=== PATIENT | male | born 1945 | race Caucasian/White ===

== ENCOUNTER 2016-06-08 07:21 | Outpatient (CLI) | payer MEDICAID ==
[~2016-06-08] VITALS: Ht 167.6 cm; Wt 124.6 kg
[2016-06-08] VITALS (14 sets, daily range): BP systolic 127–179; BP diastolic 74–101; PULSE 60–81; RESP 12–18; TEMP 96.7–98.3; O2SAT 90–98; Ht 167.6 cm; Wt 124.6 kg
[~2016-06-08 07:21] MED LIST: CEFAZOLIN 1 GRAM INJECTION IV ONE; FURO80TA3 PO; LOSA1TAB96 PO; LOVA20TA71 PO; MAGN400T6 PO; METO25TA6 PO; NITR0.4T SL; NORMAL SALINE 1,000 ML IV SCH; POTA10TA93 PO; SERT25TA5 PO; VANCOMYCIN 1 G in NORMAL SALINE 250 ML IV ONE
--- NOTE | 2016-06-08 07:35 | NUR ---
ADMIT PT ADMITTED TO ROOM 130 AT THIS TIME VIA AMBULATORY STATUS. PT REPOSITIONED SELF IN BED. SIGNIFICANT OTHER PRESENT IN ROOM UPON ADMIT. PT ALERT AND ORIENTED. WILL CONTINUE TO MONITOR.
[2016-06-08 08:48] LABS: BASOPHILS % (AUTO) 0.3 % (0-2); EOSINOPHILS # (AUTO) 0.1 T/MM3 (0-0.5); EOSINOPHILS % (AUTO) 1.4 % (0-4); HCT - HEMATOCRIT 48.2 % (41-53); HGB - HEMOGLOBIN 15.4 GM/DL (13.5-17.5); IMMATURE GRANULOCYTE # (AUTO) 0.02 T/MM3 (0.00-0.03); IMMATURE GRANULOCYTE % (AUTO) 0.3 % (0.0-0.5); LYMPHOCYTES # (AUTO) 1.3 T/MM3 (1-4.8); LYMPHOCYTES % (AUTO) 16.4 % (23-45); MEAN CORPUSCULAR VOLUME 93.8 UM3 (80-100); MEAN PLATELET VOLUME 10.7 UM3 (9.4-12.4); MONOCYTES # (AUTO) 0.4 T/MM3 (0-0.8); MONOCYTES % (AUTO) 5.2 % (0-9.0); NEUTROPHILS #(AUTO)-ABSOLUTE 6.1 T/MM3 (1.8-7.7); NEUTROPHILS % (AUTO) 76.4 % (33-66); RED BLOOD COUNT 5.14 M/MM3 (4.50-5.90); WBC - WHITE BLOOD COUNT 7.9 T/MM3 (4.5-11.0)
[2016-06-08 08:59] LABS: ANION GAP 10 MEQ/L (5-15); BUN/CREATININE RATIO 15 RATIO (6-26); CALCIUM 9.4 MG/DL (8.4-10.2); CHLORIDE 103 MEQ/L (98-107); CO2 - CARBON DIOXIDE 30 MEQ/L (22-30); GLOMERULAR FILTRATION RATE 74; GLUCOSE 120 MG/DL (75-110); POTASSIUM 4.1 MEQ/L (3.6-5); SODIUM 143 MEQ/L (134-144)
[2016-06-08] MEDS ORDERED: WATER FOR INJECTION 20 ML ONE (09:11)
[2016-06-08] MEDS ORDERED: SALINE FLUSH 10ml SYRINGE ONE ×2 (09:11→09:57)
[2016-06-08] MEDS ORDERED: CEFAZOLIN 1 GRAM INJECTION ONE ×2 (09:11→09:56)
[2016-06-08] MEDS ORDERED: LIDOCAINE 1% (10mg/ml) 30ml SDV ONE (09:12)
[2016-06-08] MEDS ORDERED: BACITRACIN INJ. 50,000 UNITS VL ONE (09:12)
--- NOTE | 2016-06-08 09:45 | NUR ---
SMALL CRAFT OPERATOR PT TRANSPORTED TO [facility]RAFT [facility]PERATOR AT THIS TIME VIA CART AND ACCOMPANIED BY STAFF. PT VOIDED PRIOR TO TRANSFER. EX PRESENT UPON TRANSFER. VITAL SIGNS STABLE ON ROOM AIR. INFORMED CONSENT OBTAINED. WILL CONTINUE TO MONITOR.
[2016-06-08] MEDS ORDERED: FENTANYL 100mcg/2ml INJECTION ONE ×2 (09:56→10:30)
[2016-06-08] MEDS ORDERED: MIDAZOLAM 5mg/5ml INJECTION ONE (09:57)
--- NOTE | 2016-06-08 11:28 | NUR ---
KARLA CM ATTEMPTED TO VISIT PT. PT AT PROCEDURE. CM LEFT CONTACT INFORMATION AT BEDSIDE AND WROTE ON BOARD.
--- NOTE | 2016-06-08 11:30 | NUR ---
RETURN PT RETURNED TO ROOM 130 AT THIS TIME VIA CART. PT TRANSFERRED FROM CART TO BED BY SLIDE BOARD AND ASSIST X2. VITAL SIGNS STABLE. WILL CONTINUE TO MONITOR.
[2016-06-08] MEDS ORDERED: ACETAMINOPHEN 325 MG TABLET PO PRN (17:15)
[2016-06-08] MEDS ORDERED: NITROGLYCERIN 0.4 MG SUBLINGUAL TABLET SL PRN (17:15)
[2016-06-08] MEDS ORDERED: MAG-AL + SIM LIQUID 30 ML UDC PO PRN (17:15)
[2016-06-08] MEDS ORDERED: OXYCODONE/APAP 5mg/325mg TABLET PO PRN (17:15)
[2016-06-08] MEDS ORDERED: BISACODYL 5 MG E.C. TABLET PO PRN (17:15)
--- OUTSIDE RECORDS SUMMARY | 2016-06-08 17:23 | XMS REPORT | Continuity of Care Document ---
Author Author [facility] Organization [facility] Address Unknown Phone Unavailable Allergies Active Description Code Type Severity Reaction Onset Reported/Identified Relationship to Patient Clinical Status Yes morphine Drug Allergy Severe RESP ARREST/ CARDIAC ARREST 05/29/2008 Medications Problems Procedures Results Encounters ACCT No. Visit Date/Time Discharge Status Pt. Type Provider Facility Loc./Unit Complaint [id number] 06/27/2013 09:50:00 2013 23:59:59 [facility] Outpatient Zoey DIAZ, [email or web address] [id number] 07/17/2012 12:50:00 2012 23:59:59 [facility] Outpatient Jaylen DIAZ, Gonzalo Douglas [facility] HAYLEE
--- OUTSIDE RECORDS SUMMARY | 2016-06-08 17:23 | XMS REPORT | Continuity of Care Document ---
Author Author [facility] Organization [facility] Address Unknown Phone Unavailable Support Name Relationship Address Phone INGE HEDRICK MD Caregiver [facility] [address] [place] [address] PATRICK MEDINA MD Caregiver [address] [place] [address] [phone] TONY CHIU Next Of Kin [id number] [place], [place] [id number] Insurance Providers Payer Name Policy Number Subscriber Name Relationship Medicare [id number] Neville Cerda Sr 19 Self Advance Directives Directive Response Recorded Date/Time Ordered Resuscitation Status Full Code, unverified 12/25/13 8:05am Resuscitation Documents on File Yes 12/25/13 8:49am Chief Complaint and Reason for Visit Chief Complaint Chest Pain Reason for Visit Chest pressure Dyspnea [id number] Problems Medical Problems Problem Onset Date Status Musculoskeletal left leg pain Unknown Active Pulmonary edema Unknown Active Chest pain Unknown Active Diabetes Unknown Active Hypertension Unknown Active CAD (coronary artery disease) Unknown Active Hypercholesteremia Unknown Active Depression Unknown Active GERD (gastroesophageal reflux disease) Unknown Active Morbid obesity with BMI of 45.0-49.9, adult Unknown Active Chest pressure Unknown Active Dyspnea Unknown Active CHF exacerbation Unknown Active Medications Medication Dose Route Sig Days/Qty Instructions Order Date Discontinued Date Status Losartan/Hydrochlorothiazide 25 Mg PO DAILY 90 Qty 03/23/13 Active Lovastatin DAILY 90 Qty 03/23/13 Active Potassium Chloride 20 Meq THREE TIMES A DAY 360 Qty 03/23/13 Active Furosemide 40 Mg PO DAILY EVERY AFTERNOON 12/19/13 Active Sertraline HCl 25 Mg PO DAILY 12/19/13 Active Magnesium Oxide 400 Mg PO TWICE A DAY 60 Qty 12/21/13 Active Metoprolol Tartrate 25 Mg PO TWICE DAILY WITH MEALS 60 Qty 12/21/13 Active Nitroglycerin 0.4 Mg SL EVERY 5 MINUTES X 3 PRN CHEST PAIN 1 Qty Active Furosemide 1 Tab PO DAILY 12/25/13 Active Social History Social History Problem Response Recorded Date/Time Smoking Status Former smoker 12/25/2013 8:54am When did patient START smoking? TEENAGER 12/25/2013 8:54am When did patient STOP smoking? EARLY 80'S 12/25/2013 8:54am Chewing Tobacco Status No 12/25/2013 8:54am Hx Substance Use No 12/25/2013 8:54am Hx Alcohol Use No 12/25/2013 8:54am Has the pt used tobacco in the last 12 months No 12/25/2013 8:54am Query Response Start Date Stop Date Smoking Status Never smoker Hospital Discharge Instructions Instructions: Care Instructions: Reason for Hospitalization: chest pain I was in the hospital because (patient own words): irregular heartbeat Discharge Diet: low sodium Discharge Activity: as tolerated Follow Up Appointments: Next week with Dr Medina--his office will call for an appointment Patient Instructions: Should your symptoms return you could contact Dr Medina through the office or return to the ED for emergent evaluation Condition at time of discharge: Good Good see patient instructions Blood Clot prevention 1.Take your anticoagulant (Aspirin, Coumadin, Lovenox,etc) as directed Driving 1.May drive in 4 weeks if you had your LEFT extremity operated on. 2.May drive in 6 weeks if you had your RIGHT extremity operated on. Wound/Incision Care: Tegaderm 1.Clear dressing is to remain in place for 2 weeks. 2.Do not pick at it or scrub it while showering. 3.If the dressing begins to pull up, secure it with 4x4 gauze pad and tape. 4.You may shower; however, do not submerge yourself in water until the incision is completely healed. Mepilex 1.Dressing to remain in place until your follow up appointment. 2.If this dressing starts peeling up slightly, it may be reinforced, if it peels excessively, notify your surgeon's office. 3.You may shower with the dressing in place, but do not submerge in water 4.Do not allow water to seep under the dressing, if it should seep under, remove the dressing and notify your surgeon. Notify Physician If: Call your Surgeon if you have: 1.Chest pain, difficulty breathing, fever>100.5 degrees, chills, heart rate >100, confusion, or persistent nausea/vomitting. 2.Severe pain, swelling, redness, or warmth in either of your legs. 3.During office hours, call [phone] 4. After hours, please call [facility] at [phone], and have the chinchilla machine operator page your Surgeon IN THE EVENT OF AN EMERGENCY, seek medical care at the nearest Emergency Room Condition at time of discharge: Good Plan of Care Discharge Date 12/21/13 1:20pm Disposition 02 TO OBS [facility] Condition at Discharge Improved Instructions/Education Provided [facility] Congestive Heart Failure Prescriptions See Medications Section Referrals INGE HEDRICK MD Functional Status No functional status results. Allergies, Adverse Reactions, Alerts Allergen Type Severity Reaction Status Last Updated Morphine Allergy Severe heart stops Active 12/25/13 Aspirin Adverse Reaction Unknown nose bleed Active 12/25/13 Immunizations Name Given Type Hx Influenza Vaccination Y Oct Historical Hx Pneumococcal Vaccination Y 4 YEARS AGO, "I'M DUE FOR ONE NEXT YEAR" Historical Hx Influenza Vaccination Y Oct Historical Vital Signs Acute Vital Signs Vital Response Date/Time Temperature (Fahrenheit) 97.5 deg F (96.8 - 99.1) Temperature (Calculated Celsius) 36.20750 degrees C (36.0 - 37.3) Temperature Source Temporal Pulse Rate (adult) 68 bpm (60 - 100) Respiratory Rate 16 breaths/min (10 - 20) O2 Sat by Pulse Oximetry 100 % (90 - 100) Oxygen Delivery Method Room Air Blood Pressure 118/68 mm Hg Blood Pressure Source Automatic Cuff Height 5 ft 5 in Weight 281 lb Body Mass Index 46.0 kg/m^2 Results Test Source Date Result Interp. Ref. Range Comments Activated Partial Thromboplast Time December 19, 2013 5:24pm 29.1 SEC N 24-36 Alanine Aminotransferase (ALT/SGPT) December 19, 2013 5:24pm 41 U/L N 21- 72 Albumin December 19, 2013 5:24pm 4.0 G/DL N 3.5-5.0 Albumin/Globulin Ratio December 19, 2013 5:24pm 1.3 RATIO N 1.1-2.2 Alkaline Phosphatase December 19, 2013 5:24pm 84 U/L N 38-126 Anion Gap December 25, 2013 9:23am 12 MEQ/L N 5-15 COMMENT WILL CALL WHEN READY Aspartate Amino Transf (AST/SGOT) December 19, 2013 5:24pm 31 U/L N 17- 59 BUN/Creatinine Ratio December 25, 2013 9:23am 28 RATIO H 6-26 COMMENT WILL CALL WHEN READY Band Neutrophils # March 23, 2013 2:41pm 0.4 T/MM3 - Band Neutrophils % March 23, 2013 2:41pm 4.0 % N 0-6 Basophils # (Auto) December 25, 2013 9:23am 0.0 T/MM3 N 0-0.2 COMMENT WILL CALL WHEN READY Basophils # (Manual) March 23, 2013 2:41pm 0.0 T/MM3 N 0-0.2 Basophils % (Manual) March 23, 2013 2:41pm 0.0 % N 0-2 Basophils (%) (Auto) December 25, 2013 9:23am 0.2 % N 0-2 COMMENT WILL CALL WHEN READY Blood Urea Nitrogen December 25, 2013 9:23am 25.0 MG/DL H 9-20 COMMENT WILL CALL WHEN READY Calcium Level December 25, 2013 9:23am 9.0 MG/DL N 8.4-10.2 COMMENT WILL CALL WHEN READY Calculated Osmolality December 25, 2013 9:23am 274 MOSM/KG N 261-280 COMMENT WILL CALL WHEN READY Carbon Dioxide Level December 25, 2013 9:23am 27 MEQ/L N 22-30 COMMENT WILL CALL WHEN READY Chemistry Specimen Hemolysis December 25, 2013 9:23am < 15 0-25 0-25: No Hemolysis.26-70: Slight Hemolysis - can falsely elevate K and Urine Protein. 71-285: Moderate Hemolysis - can falsely elevate K, Troponin I, CA 19-9, PTH, CSF GLucose, and Urine Protein, and can falsely decrease Phenytoin. 286-999: Gross Hemolysis - can falsely elevate K, Troponin I, CA 19-9, PTH, CSF Glucose, and Urine Protine, and can falsely decrease Phenytoin. Recommend specimen recollection. Chloride Level December 25, 2013 9:23am 101 MEQ/L N 98-107 COMMENT WILL CALL WHEN READY Cholesterol Level December 21, 2013 5:49am 84 MG/DL L 132-199 Cholesterol/HDL Ratio December 21, 2013 5:49am 5.3 RATIO H 0-5.0 Creatinine December 25, 2013 9:23am 0.9 MG/DL N 0.8-1.5 COMMENT WILL CALL WHEN READY Eosinophils # (Auto) December 25, 2013 9:23am 0.1 T/MM3 N 0-0.5 COMMENT WILL CALL WHEN READY Eosinophils # (Manual) March 23, 2013 2:41pm 0.0 T/MM3 N 0-0.5 Eosinophils % (Manual) March 23, 2013 2:41pm 0.0 % N 0-4 Eosinophils (%) (Auto) December 25, 2013 9:23am 1.0 % N 0-4 COMMENT WILL CALL WHEN READY Globulin December 19, 2013 5:24pm 3.1 G/DL N 2.4-3.6 Glomerular Filtration Rate Calc December 25, 2013 9:23am 84 - COMMENT WILL CALL WHEN READY Glucometer December 20, 2013 10:57am 112 mg/dL H 75-110 Glucose Level December 25, 2013 9:23am 116 MG/DL H 75-110 COMMENT WILL CALL WHEN READY HDL Cholesterol Direct December 21, 2013 5:49am 16 MG/DL L 40-60 Hematocrit December 25, 2013 9:23am 42.1 % N 41-53 COMMENT WILL CALL WHEN READY Hemoglobin December 25, 2013 9:23am 13.4 GM/DL L 13.5-17.5 COMMENT WILL CALL WHEN READY Hemoglobin A1c December 20, 2013 5:20am 5.7 % L 6-7 <6.0 NON-DIABETIC RANGE6.0-7.0 ADA THERAPEUTIC RANGE >7.0 ACTION SUGGESTED Icterus Index December 25, 2013 9:23am < 2 0-7 COMMENT WILL CALL WHEN READY Immature Granulocyte # (Auto) December 25, 2013 9:23am 0.02 T/MM3 N 0.00- 0.03 COMMENT WILL CALL WHEN READY Immature Granulocyte % (Auto) December 25, 2013 9:23am 0.2 % N 0.0-0.5 COMMENT WILL CALL WHEN READY LDL Cholesterol, Calculated December 21, 2013 5:49am 40.8 L 66-159 Lymphocytes # (Auto) December 25, 2013 9:23am 1.1 T/MM3 N 1-4.8 COMMENT WILL CALL WHEN READY Lymphocytes # (Manual) March 23, 2013 2:41pm 0.4 T/MM3 L 1-4.8 Lymphocytes % (Manual) March 23, 2013 2:41pm 4.0 % L 23-45 Lymphocytes (%) (Auto) December 25, 2013 9:23am 9.9 % L 23-45 COMMENT WILL CALL WHEN READY Magnesium Level December 21, 2013 5:49am 2.0 MG/DL N 1.6-2.3 Mean Corpuscular Hemoglobin December 25, 2013 9:23am 29.6 UUG N 26-34 COMMENT WILL CALL WHEN READY Mean Corpuscular Hemoglobin Concent December 25, 2013 9:23am 31.8 GM/DL N 31-37 COMMENT WILL CALL WHEN READY Mean Corpuscular Volume December 25, 2013 9:23am 93.1 UM3 N 80-100 COMMENT WILL CALL WHEN READY Mean Platelet Volume December 25, 2013 9:23am 11.2 UM3 N 9.4-12.4 COMMENT WILL CALL WHEN READY Monocytes # (Auto) December 25, 2013 9:23am 0.6 T/MM3 N 0-0.8 COMMENT WILL CALL WHEN READY Monocytes # (Manual) March 23, 2013 2:41pm 0.2 T/MM3 N 0-0.8 Monocytes % (Manual) March 23, 2013 2:41pm 2.0 % N 0-9.0 Monocytes (%) (Auto) December 25, 2013 9:23am 5.3 % N 0-9.0 COMMENT WILL CALL WHEN READY BV-Mza-Q-Type Natriuretic Peptide December 19, 2013 5:24pm 3580 PG/ML H 0 -175 Rule in cut points: <50 years old=450; 50-75 years old=900; >75 years old=1800; When utilizing ProBNP rule-in cut points, adjustment for impaired renal function is typically not required. Neutrophils # (Auto) December 25, 2013 9:23am 9.2 T/MM3 H 1.8-7.7 COMMENT WILL CALL WHEN READY Neutrophils # (Manual) March 23, 2013 2:41pm 9.4 T/MM3 H 1.8-7.7 Neutrophils % (Manual) March 23, 2013 2:41pm 87.0 % H 33-66 Neutrophils (%) (Auto) December 25, 2013 9:23am 83.4 % H 33-66 COMMENT WILL CALL WHEN READY Platelet Count December 25, 2013 9:23am 175 T/MM3 N 130-400 COMMENT WILL CALL WHEN READY Potassium Level December 25, 2013 9:23am 3.7 MEQ/L N 3.6-5 COMMENT WILL CALL WHEN READY Prothromb Time International Ratio December 19, 2013 5:24pm 1.11 H 0.81- 1.09 THERAPUTIC RANGE=2.00-3.00 FOR ANTI-THROMBOSIS THERAPUTIC RANGE=2.50- 3.50 FOR IMPLANTED VALVE RDW Standard Deviation December 25, 2013 9:23am 51.5 FL H 36.9-50.2 COMMENT WILL CALL WHEN READY Reactive Lymphocytes # March 23, 2013 2:41pm 0.3 T/MM3 H 0-0 Reactive Lymphocytes % March 23, 2013 2:41pm 3.0 % H 0-0 Red Blood Count December 25, 2013 9:23am 4.52 M/MM3 N 4.50-5.90 COMMENT WILL CALL WHEN READY Sodium Level December 25, 2013 9:23am 140 MEQ/L N 134-144 COMMENT WILL CALL WHEN READY Total Bilirubin December 19, 2013 5:24pm 0.80 MG/DL N 0.20-1.30 Total Protein December 19, 2013 5:24pm 7.1 G/DL N 6.3-8.2 Triglycerides Level December 21, 2013 5:49am 136 MG/DL N 40-160 Troponin I December 20, 2013 5:09am 0.030 ng/ml N 0-0.12 Turbidity December 25, 2013 9:23am < 20 0-20 COMMENT WILL CALL WHEN READY Uric Acid March 23, 2013 2:41pm 6.7 MG/DL N 3.5-8.5 VLDL Cholesterol December 21, 2013 5:49am 27.2 MG/DL N 0-28 White Blood Count December 25, 2013 9:23am 11.1 T/MM3 H 4.5-11.0 COMMENT WILL CALL WHEN READY Name: NEVILLE CERDA SR Unit #: [id number] : 1945 Sex: M DISCHARGE SUMMARY Admit Date: 12/19/13 Report #: [id number] General Date Date DATE: 12/21/13 TIME: 12:18 Attending Physician Evelyn Schuster DO Admitting Physician Evelyn Schuster DO Consulting Physician Patrick Medina MD Admitting Diagnosis (1) Pulmonary edema Status: Acute (2) Chest pain Status: Acute (3) Hypertension Status: Chronic (4) CAD (coronary artery disease) Status: Chronic (5) Hypercholesteremia Status: Chronic (6) Diabetes Status: Chronic (7) Depression Status: Chronic (8) GERD (gastroesophageal reflux disease) Status: Chronic (9) Morbid obesity with BMI of 45.0-49.9, adult Discharge Diagnosis same adding CHF, acute on chronic systolic Laboratory Laboratory Laboratory Tests Test 12/21/13 05:49 Turbidity < 20 Sodium Level 141 MEQ/L Potassium Level 3.7 MEQ/L Chloride Level 97 MEQ/L Carbon Dioxide Level 35 MEQ/L Anion Gap 9 MEQ/L Blood Urea Nitrogen 22.0 MG/DL Creatinine 1.1 MG/DL Glomerular Filtration Rate 67 Calc BUN/Creatinine Ratio 20 RATIO Glucose Level 122 MG/DL Calculated Osmolality 275 MOSM/KG Calcium Level 9.3 MG/DL Magnesium Level 2.0 MG/DL Icterus Index < 2 Chemistry Specimen Hemolysis < 15 History of Present Illness Mr. Cerda, "Michel", is a very pleasant 68 year old male who was directed to the [facility] ED today by [facility] for chest pressure, shortness of breath and palpations. Michel reports that over the past 2 weeks he has become increasing more short of breath, especially with ambulation , exertion and laying flat. He states that about a week ago the political director took his blood pressure and told him that his heart was skipping beats. He admits to occasional bouts of palpations, most recently on 12/17. He reports that today the political director encouraged [facility] for further evaluation of his chest pressure and dyspnea. Due to the severity of his shortness of breath, he was directed to [facility] ED for further evaluation. In the ED he reported chest pressure that is very different than his prior NM in 2004 and states that it is similar to when he "had fluid on his lungs". In the ED he was given nitro x 2 which completely resolved his chest pain. Patient was offered and encouraged to take ASA 324 which he refused. He reports that when he has previously taken ASA he had an episode of severe epistaxis. He did finally accepted ASA 81mg. Lab work obtained and showed: WBC - 11.9, Hemoglobin - 13.9, Sodium - 140, Potassium - 3.7, BUn - 21, SCr - 1.0. Troponin - 0.037. BNP - 3580. EKG showed frequent PVCs. CXR was obtained and showed increased interstitial markings bilaterally consistent with early infiltrate vs. CHF exacerbation. Based on patient's dyspnea, pulmonary edema and chest pain, Dr. Schuster was contacted for outpatient admission for further evaluation and treatment. Patient's length of stay is expected to be less than 2 overnights. Hospital Course Pt was admitted to the outpt unit under the hospitalist service. He was started on O2, and IV Lasix was given. Troponins were followed and remained stable. DVT and GI protection was urtilized. Pain and nausea was controlled with PRN medications. Pt's telemetry was noted with ectopy, and Dr Medina was consulted. He did make some medication adjustments, and recommended a heart cath for further evaluation. Pt agreed to the procedure, but wanted to return at a different time later in the week for this. Pt was monitored overnight after his med changes for stability. He was able to walk and perform his ADLs without symptoms. He was discharged home with instructions to return to Dr Medina's clinic next week to have his heart cath set up. Should he have any return of symptoms of other concerns he could contact Dr Medina through the office or return to the ED for emergent evaluation. Problems: (1) Pulmonary edema Status: Acute (2) Chest pain Status: Acute (3) Hypertension Status: Chronic (4) CAD (coronary artery disease) Status: Chronic (5) Hypercholesteremia Status: Chronic (6) Diabetes Status: Chronic (7) Depression Status: Chronic (8) GERD (gastroesophageal reflux disease) Status: Chronic (9) Morbid obesity with BMI of 45.0-49.9, adult Status: Chronic DVT Prophylaxis: SCD'S GI Prophylaxis: Protonix Code Status Do Not Resuscitate Home Meds Active Scripts Nitroglycerin (Nitrostat)0.4 Mg Tablet0.4 Mg SL Q5MIN PRN (CHEST PAIN) #1 VIAL Prov:EVELYN SCHUSTER DO 12/21/13 Metoprolol Tartrate 25 Mg [id number] Mg PO BIDWM #60 TAB Prov:EVELYN SCHUSTER DO 12/21/13 Magnesium Oxide 400 Mg [id number] Mg PO BID #60 TAB Prov:EVELYN SCHUSTER DO 12/21/13 Reported Medications Sertraline HCl 25 Mg [id number] Mg PO DAILY 12/19/13 Furosemide 80 Mg [id number] Mg PO BID 12/19/13 Potassium Chloride 10 Meq Tablet.sa20 Mg BID #360 03/23/13 Lovastatin 20 Mg Tablet Daily #90 03/23/13 Losartan/Hydrochlorothiazide (Losartan-Hctz 100-25 Mg Tab)1 Each [id number] Mg PO DAILY #90 03/23/13 Discharge Disposition stable Copies To 1: JAYANT HART MD, CARRIE DO Dec 21, 2013 12:27 Procedures No known history of procedures. Encounters Encounter Location Date/Time Registered Clinic [facility] 12/25/13 8:09am Discharged Inpatient [facility] 12/19/13 7:24pm
--- OUTSIDE RECORDS SUMMARY | 2016-06-08 17:23 | XMS REPORT | Continuity of Care Document ---
Author Author [facility] Organization [facility] Address Unknown Phone Unavailable Support Name Relationship Address Phone LANDENGYPSY Caregiver [address] [place] [address] [address] DEL[address] [place] [address] INGE HEDRICK MD Caregiver [facility] [address] [place] [address] KANWAL CAMP MD Caregiver [address] [place] [address] [place] [phone] TONY CHIU Next Of Kin [address] [id number] Insurance Providers Payer Name Policy Number Subscriber Name Relationship Medicare [id number] Neville Cerda Sr 18 Self Advance Directives Directive Response Recorded Date/Time Dr Mclain Resuscitation Status Do Not Resuscitate 12/19/13 8:27pm Resuscitation Documents on File No 12/19/13 8:02pm Chief Complaint and Reason for Visit Chief Complaint CHF EXCERBATION, CP RULE OUT M1 Reason for Visit Pulmonary edema Chest pain Diabetes Hypertension CAD (coronary artery disease) Hypercholesteremia Depression GERD (gastroesophageal reflux disease) Morbid obesity with BMI of 45.0-49.9, adult Chest pressure Dyspnea CHF exacerbation Problems Medical Problems Problem Onset Date Status [...] 90 Qty 03/23/13 Active Potassium Chloride 20 Mg TWICE A DAY 360 Qty 03/23/13 Active Furosemide 40 Mg PO TWICE A DAY 12/19/13 Active Sertraline HCl 25 Mg PO DAILY 10/09/14 Active Magnesium Oxide 400 Mg PO TWICE A DAY 60 Qty 12/21/13 Active Metoprolol Tartrate 25 Mg PO TWICE DAILY WITH MEALS 60 Qty 12/21/13 Active Nitroglycerin 0.4 Mg SL EVERY 5 MINUTES X 3 PRN CHEST PAIN 1 Qty Active Social History Social History Problem Response Recorded Date/Time Smoking Status Former smoker 12/19/2013 8:05pm When did patient STOP smoking? YEARS AGO 12/19/2013 8:05pm Hx Alcohol Use No 03/23/2013 1:23pm Has the pt used tobacco in the last 12 months No 12/19/2013 8:05pm Query Response Start Date Stop Date Smoking [...] evaluation Condition at time of discharge: Good Condition at time of discharge: Good Plan of Care Discharge Date 12/21/13 1:20pm Disposition 01 DISCHARGED HOME, SELF-CARE Instructions/Education Provided [facility] Congestive Heart Failure Prescriptions See Medications Section Functional Status Query Response Date Recorded Mental Status Alert Oriented December 20, 2013 10:45am Allergies, Adverse Reactions, Alerts Allergen Type Severity Reaction Status Last Updated Morphine Allergy Severe heart stops Active 12/19/13 Aspirin Adverse Reaction Unknown nose bleed Active 12/19/13 Immunizations Name Given Type Hx Influenza Vaccination Y Oct Historical Hx Pneumococcal Vaccination Y 4 YEARS AGO, "I'M DUE FOR ONE NEXT YEAR" Historical Hx Influenza Vaccination Y Oct Historical Vital Signs Acute Vital Signs Vital Response Date/Time Temperature (Fahrenheit) 98.4 deg F (96.8 - 99.1) Temperature (Calculated Celsius) 36.63169 degrees C (36.0 - 37.3) Temperature Source Oral Pulse Rate (adult) 65 bpm (60 - 100) Respiratory Rate 16 breaths/min (10 - 20) O2 Sat by Pulse Oximetry 98 % (90 - 100) Oxygen Delivery Method Room Air Height 5 ft 5 in Weight 282 lb Body Mass Index 46.0 kg/m^2 Results Test Source Date Result Interp. Ref. Range Comments Cholesterol/HDL Ratio December 21, 2013 5:49am 5.3 RATIO H 0-5.0 VLDL Cholesterol December 21, 2013 5:49am 27.2 MG/DL N 0-28 LDL Cholesterol, Calculated December 21, 2013 5:49am 40.8 L 66-159 HDL Cholesterol Direct December 21, 2013 5:49am 16 MG/DL L 40-60 Triglycerides Level December 21, 2013 5:49am 136 MG/DL N 40-160 Cholesterol Level December 21, 2013 5:49am 84 MG/DL L 132-199 Activated Partial Thromboplast Time December 19, 2013 5:24pm 29.1 SEC N 24-36 Alanine Aminotransferase (ALT/SGPT) December 19, 2013 5:24pm 41 U/L N 21- 72 Albumin December 19, 2013 5:24pm 4.0 G/DL N 3.5-5.0 Albumin/Globulin Ratio December 19, 2013 5:24pm 1.3 RATIO N 1.1-2.2 Alkaline Phosphatase December 19, 2013 5:24pm 84 U/L N 38-126 Anion Gap December 21, 2013 5:49am 9 MEQ/L N 5-15 Aspartate Amino Transf (AST/SGOT) December 19, 2013 5:24pm 31 U/L N 17- 59 BUN/Creatinine Ratio December 21, 2013 5:49am 20 RATIO N 6-26 Band Neutrophils # March 23, 2013 2:41pm 0.4 T/MM3 - Band Neutrophils % March 23, 2013 2:41pm 4.0 % N 0-6 Basophils # (Auto) December 20, 2013 5:20am 0.0 T/MM3 N 0-0.2 Basophils # (Manual) March 23, 2013 2:41pm 0.0 T/MM3 N 0-0.2 Basophils % (Manual) March 23, 2013 2:41pm 0.0 % N 0-2 Basophils (%) (Auto) December 20, 2013 5:20am 0.2 % N 0-2 Blood Urea Nitrogen December 21, 2013 5:49am 22.0 MG/DL H 9-20 Calcium Level December 21, 2013 5:49am 9.3 MG/DL N 8.4-10.2 Calculated Osmolality December 21, 2013 5:49am 275 MOSM/KG N 261-280 Carbon Dioxide Level December 21, 2013 5:49am 35 MEQ/L H 22-30 Chemistry Specimen Hemolysis December 21, 2013 5:49am < 15 0-25 0-25: No Hemolysis.26-70: Slight [...] Phenytoin. Recommend specimen recollection. Chloride Level December 21, 2013 5:49am 97 MEQ/L L 98-107 Creatinine December 21, 2013 5:49am 1.1 MG/DL N 0.8-1.5 Eosinophils # (Auto) December 20, 2013 5:20am 0.1 T/MM3 N 0-0.5 Eosinophils # (Manual) March 23, 2013 2:41pm 0.0 T/MM3 N 0-0.5 Eosinophils % (Manual) March 23, 2013 2:41pm 0.0 % N 0-4 Eosinophils (%) (Auto) December 20, 2013 5:20am 1.4 % N 0-4 Globulin December 19, 2013 5:24pm 3.1 G/DL N 2.4-3.6 Glomerular Filtration Rate Calc December 21, 2013 5:49am 67 - Glucometer December 20, 2013 10:57am 112 mg/dL H 75-110 Glucose Level December 21, 2013 5:49am 122 MG/DL H 75-110 Hematocrit December 20, 2013 5:20am 42.7 % N 41-53 Hemoglobin December 20, 2013 5:20am 13.6 GM/DL N 13.5-17.5 Hemoglobin A1c December 20, 2013 5:20am 5.7 % L 6-7 <6.0 NON-DIABETIC RANGE6.0-7.0 ADA THERAPEUTIC RANGE >7.0 ACTION SUGGESTED Icterus Index December 21, 2013 5:49am < 2 0-7 Immature Granulocyte # (Auto) December 20, 2013 5:20am 0.01 T/MM3 N 0.00- 0.03 Immature Granulocyte % (Auto) December 20, 2013 5:20am 0.1 % N 0.0-0.5 Lymphocytes # (Auto) December 20, 2013 5:20am 1.4 T/MM3 N 1-4.8 Lymphocytes # (Manual) March 23, 2013 2:41pm 0.4 T/MM3 L 1-4.8 Lymphocytes % (Manual) March 23, 2013 2:41pm 4.0 % L 23-45 Lymphocytes (%) (Auto) December 20, 2013 5:20am 14.6 % L 23-45 Magnesium Level December 21, 2013 5:49am 2.0 MG/DL N 1.6-2.3 Mean Corpuscular Hemoglobin December 20, 2013 5:20am 29.5 UUG N 26-34 Mean Corpuscular Hemoglobin Concent December 20, 2013 5:20am 31.9 GM/DL N 31-37 Mean Corpuscular Volume December 20, 2013 5:20am 92.6 UM3 N 80-100 Mean Platelet Volume December 20, 2013 5:20am 11.4 UM3 N 9.4-12.4 Monocytes # (Auto) December 20, 2013 5:20am 0.6 T/MM3 N 0-0.8 Monocytes # (Manual) March 23, 2013 2:41pm 0.2 T/MM3 N 0-0.8 Monocytes % (Manual) March 23, 2013 2:41pm 2.0 % N 0-9.0 Monocytes (%) (Auto) December 20, 2013 5:20am 5.7 % N 0-9.0 AA-Yhq-D-Type Natriuretic Peptide December 19, 2013 5:24pm 3580 PG/ML H 0 -175 Rule in cut points: <50 years old=450; 50-75 years old=900; >75 years old=1800; When utilizing ProBNP rule-in cut points, adjustment for impaired renal function is typically not required. Neutrophils # (Auto) December 20, 2013 5:20am 7.7 T/MM3 N 1.8-7.7 Neutrophils # (Manual) March 23, 2013 2:41pm 9.4 T/MM3 H 1.8-7.7 Neutrophils % (Manual) March 23, 2013 2:41pm 87.0 % H 33-66 Neutrophils (%) (Auto) December 20, 2013 5:20am 78.0 % H 33-66 Platelet Count December 20, 2013 5:20am 182 T/MM3 N 130-400 Potassium Level December 21, 2013 5:49am 3.7 MEQ/L N 3.6-5 Prothromb Time International Ratio December 19, 2013 5:24pm 1.11 H 0.81- 1.09 THERAPUTIC RANGE=2.00-3.00 FOR ANTI-THROMBOSIS THERAPUTIC RANGE=2.50- 3.50 FOR IMPLANTED VALVE RDW Standard Deviation December 20, 2013 5:20am 51.4 FL H 36.9-50.2 Reactive Lymphocytes # March 23, 2013 2:41pm 0.3 T/MM3 H 0-0 Reactive Lymphocytes % March 23, 2013 2:41pm 3.0 % H 0-0 Red Blood Count December 20, 2013 5:20am 4.61 M/MM3 N 4.50-5.90 Sodium Level December 21, 2013 5:49am 141 MEQ/L N 134-144 Total Bilirubin December 19, 2013 5:24pm 0.80 MG/DL N 0.20-1.30 Total Protein December 19, 2013 5:24pm 7.1 G/DL N 6.3-8.2 Troponin I December 20, 2013 5:09am 0.030 ng/ml N 0-0.12 Turbidity December 21, 2013 5:49am < 20 0-20 Uric Acid March 23, 2013 2:41pm 6.7 MG/DL N 3.5-8.5 White Blood Count December 20, 2013 5:20am 9.8 T/MM3 N 4.5-11.0 Name: NEVILLE CERDA SR Unit #: [id number] : 1945 Sex: M DISCHARGE SUMMARY Admit Date: 12/19/13 Report #: [id number] General Date Date DATE: 12/21/13 TIME: 12:18 Attending Physician Gypsy Schuster DO Admitting Physician Gypsy Schuster DO Consulting Physician Luis Daniel Medina MD Admitting Diagnosis (1) Pulmonary edema [...] old male who was directed to the [facility] ED today by [facility] for chest pressure, shortness of breath and palpations. Michel reports that over the past 2 weeks he has become increasing more short of breath, especially with ambulation , exertion and laying flat. He states that about a week ago the director life sales took his blood pressure and told him that his heart was skipping beats. He admits to occasional bouts of palpations, most recently on 12/17. He reports that today the director life sales encouraged [facility] to [facility] to [facility] for further evaluation of his chest pressure and dyspnea. Due to the severity of his shortness of breath, he was directed to [facility] ED for further evaluation. In the ED he reported chest pressure that is very different than his prior [place] in 2004 and states that it is [...] SL Q5MIN PRN (CHEST PAIN) #1 VIAL Prov:GYPSY SCHUSTER DO 12/21/13 Metoprolol Tartrate 25 Mg [id number] Mg PO BIDWM #60 TAB Prov:GYPSY SCHUSTER DO 12/21/13 Magnesium Oxide 400 Mg Vucxyo768 Mg PO BID #60 TAB Prov:GYPSY SCHUSTER DO 12/21/13 Reported Medications Sertraline HCl 25 Mg Lpvfwz72 Mg PO DAILY 12/19/13 Furosemide 80 Mg Dwhjfk94 Mg PO BID 12/19/13 Potassium Chloride 10 Meq Tablet.sa20 Mg BID #360 03/23/13 Lovastatin 20 Mg Tablet Daily #90 03/23/13 Losartan/Hydrochlorothiazide (Losartan-Hctz 100-25 Mg Tab)1 Each Cgkcxe58 Mg PO DAILY #90 03/23/13 Discharge Disposition stable Copies To 1: JAYANT HART MD, CARRIE DO Dec 21, 2013 12:27 Procedures No known history of procedures. Encounters Encounter Location Date/Time Discharged Inpatient [facility] 12/19/13 7:24pm Recent Diagnosis Pulmonary edema Chest pain Diabetes Hypertension CAD (coronary artery disease) Hypercholesteremia Depression GERD (gastroesophageal reflux disease) Morbid obesity with BMI of 45.0-49.9, adult Chest pressure Dyspnea CHF exacerbation
--- OUTSIDE RECORDS SUMMARY | 2016-06-08 17:23 | XMS REPORT ---
Author Author Galen Perez Organization [employer] Address Unknown Phone Unavailable Care Team Providers Care Wheat Combine Driver Name Role Phone Galen Perez CP Unavailable Allergies No Known Allergies Problems Problem Type Condition ICD-9 Code Onset Dates Condition Status Problem Unspecified venous (peripheral) insufficiency 459.81 Active Problem Hypercholesterolemia 272.2 Active Problem Depressive disorder, not elsewhere classified 311 Active Problem Chronic systolic heart failure 428.22 Active Problem Coronary atherosclerosis of [place] coronary artery 414.01 Active Problem Old myocardial infarction 412 Active Problem Hypertension, benign 401.1 Active Problem Morbid obesity 278.01 Active Medications Medication Code System Code Instructions Start Date End Date Status Dosage Sertraline HCl [facility] [address]-41 25 MG Orally Once a day 1 tablet Results No Known Results Summary Purpose [employer] Submission
--- OUTSIDE RECORDS SUMMARY | 2016-06-08 17:23 | XMS REPORT ---
Author Author Julia Moore [employer] Address Unknown Phone Unavailable Care Team Providers Care Police Magistrate Name Role Phone Julia Moore CP Unavailable Allergies, Adverse Reactions, Alerts Substance Reaction Event Type Morphine Sulfate anaphylaxis Drug Allergy Problems Problem Type Condition ICD-9 Code Onset Dates Condition Status Assessment Morbid obesity 278.01 Active Problem Unspecified venous (peripheral) insufficiency 459.81 Active Assessment Chronic systolic heart failure 428.22 Active Problem Hypercholesterolemia 272.2 Active Problem Depressive disorder, not elsewhere classified 311 Active Problem Chronic systolic heart failure 428.22 Active Problem Coronary atherosclerosis of [place] coronary artery 414.01 Active Problem Old myocardial infarction 412 Active Problem Hypertension, benign 401.1 Active Problem Morbid obesity 278.01 Active Assessment Need for prophylactic vaccination against streptococcus pneumoniae (pneumococcus) V03.82 Active Assessment Coronary atherosclerosis of [place] coronary artery 414.01 Active Assessment Hypertension, benign 401.1 Active Medications Medication Code System Code Instructions Start Date End Date Status Dosage Metoprolol Tartrate [facility] [address]-60 25 MG Orally Twice a day Active 1 tablet Magnesium Oxide [facility] [address]-74 400 MG Orally Active as directed Lovastatin [facility] [address]-09 20 MG Orally Once a day Active 1 tablet with a meal Sertraline HCl [facility] [address]-32 25 MG Orally Once a day Active 1 tablet Nitrostat [facility] [address]-19 0.4 MG Sublingual every 0 hrs Active 1 tablet under the tongue and allow to dissolve as needed Losartan Potassium-HCTZ [facility] [address]-65 100-25 MG Orally Once a day Active 1 tablet Furosemide [facility] [address]-24 80 MG Orally twice a day Active 1 tablet Potassium Chloride ER [facility] [address]-56 10 MEQ Orally Four times a day Active 1 tablet Procedures Procedure Coding System Code Date BASIC METABOLIC PANEL CPT-4 77108 Dec 30, 2013 PNEUMOCOCOCCAL CONJUGATE VACCINE CPT-4 44668 Dec 30, 2013 OFFICE VISIT, EST-MOD. COMPLEXITY (25 MIN) CPT-4 32568 Dec 30, 2013 ADMINISTRATION, 1ST IMMUNIZATION CPT-4 23141 Dec 30, 2013 Vital Signs Date/Time: Dec 30, 2013 Height 65.25 inches Weight 284.8 lbs Temperature 97.8 F Blood Pressure Diastolic 74 mm Hg Blood Pressure Systolic 124 mm Hg Cardiac Monitoring Heart Rate 80 Beats per Minute BMI 47.03 Index Respiratory Rate 18 per Minute Results Name Result Date Reference Range Unit Basic Metabolic Panel (BMP) Immunizations Vaccine Administration Date Pneumo 13 (Prevnar)(child)(adult) Dec 30, 2013 Summary Purpose [employer] Submission
--- OUTSIDE RECORDS SUMMARY | 2016-06-08 17:23 | XMS REPORT ---
Author Author Julia Moore Organization [employer] Address Unknown Phone Unavailable Care Team Providers Care Rubber Goods Repairer Name Role Phone Julia Moore CP Unavailable Allergies, Adverse Reactions, Alerts Substance Reaction Event Type Morphine Sulfate anaphylaxis Drug Allergy Problems Problem Type Condition ICD-9 Code Onset Dates Condition Status Assessment Other dyspnea and respiratory abnormalities 786.09 Active Problem Depressive disorder, not elsewhere classified 311 Active Problem Hypertension, benign 401.1 Active Problem Hypercholesterolemia 272.2 Active Problem Old myocardial infarction 412 Active Problem Unspecified venous (peripheral) insufficiency 459.81 Active Problem Morbid obesity 278.01 Active Problem Coronary atherosclerosis of [place] coronary artery 414.01 Active Medications Medication Code System Code Instructions Start Date End Date Status Dosage Sertraline HCl [facility] [address]-26 25 MG Orally Once a day Active 1 tablet Losartan Potassium [facility] [address]-50 25 MG Orally Once a day Active 1 tablet Potassium Chloride ER [facility] [address]-21 10 MEQ Orally Four times a day Active 1 tablet Furosemide [facility] [address]-61 40 MG Orally Twice a day Active 1 tablet Lovastatin [facility] [address]-10 20 MG Orally Once a day Active 1 tablet with a meal Procedures Procedure Coding System Code Date OFFICE VISIT, GLAZE MAKER-LOW COMPLEXITY (30 MIN.) CPT-4 22378 Dec 19, 2013 Vital Signs Date/Time: Dec 19, 2013 Height 65.25 inches Weight 279.12 lbs Temperature 98.4 F Blood Pressure Diastolic 86 mm Hg Blood Pressure Systolic 130 mm Hg Cardiac Monitoring Heart Rate 88 Beats per Minute BMI 46.09 Index Respiratory Rate 20 per Minute Results No Known Results Summary Purpose [employer] Submission
[2016-06-08] MEDS ORDERED: NS 500 ML IV PRN (17:45)
[2016-06-08] MEDS: POTASSIUM CHLORIDE 10 MEQ TABLET PO SCH (17:54)
[2016-06-08] MEDS: CEFAZOLIN 1 G in NORMAL SALINE 100 ML IV SCH (17:54)
--- NOTE | 2016-06-08 18:26 | NUR ---
DM Screen BMI: 45.1 Estimated daily calorie needs for weight maintenance: ~2600 Weight loss would be beneficial for patient. Diet order: Cardiac, [address] spoke with patient and his . Patient said he is pre-diabetic and sees a dietitian with Kathy. RD stressed the importance of avoiding liquid sugar. RD encouraged them to ask RN to call RD if they have nutrition concerns.
[2016-06-08] MEDS: MAGNESIUM OXIDE 400 MG TABLET PO SCH (21:20)
[2016-06-09 00:23] VITALS: BP 141/86; PULSE 69; RESP 16; TEMP 96.8; O2SAT 93
[2016-06-09] MEDS: CEFAZOLIN 1 G in NORMAL SALINE 100 ML IV SCH (02:42)
[2016-06-09 04:11] VITALS: BP 135/99; PULSE 65; RESP 16; TEMP 96.9; O2SAT 93
--- NOTE | 2016-06-09 06:19 | NUR ---
SHIFT SUMMARY PT ALERT AND ORIENTED X3, VITAL SIGNS STABLE ON ROOM AIR. DENIES C/P,N/V AND SOA. PT RATED PAIN EARLIER IN THE SHIFT A /, PRN PAIN MEDICATION GIVEN. DENIES FURTHER NEED FOR PRN MEDICATION. PT SAT UP IN RECLINER FOR A FEW HOURS ON THIS SHIFT, RESTED WELL THE REMAINDER OF THE EVENING IN BED. AMBULATES TO AND FROM THE BATHROOM WITH A STANDBY ASSIST. WILL CONTINUE TO MONITOR.
[2016-06-09 06:27] LABS: BASOPHILS % (AUTO) 0.1 % (0-2); EOSINOPHILS # (AUTO) 0.1 T/MM3 (0-0.5); EOSINOPHILS % (AUTO) 1.4 % (0-4); HCT - HEMATOCRIT 46.9 % (41-53); HGB - HEMOGLOBIN 14.7 GM/DL (13.5-17.5); IMMATURE GRANULOCYTE # (AUTO) 0.02 T/MM3 (0.00-0.03); IMMATURE GRANULOCYTE % (AUTO) 0.2 % (0.0-0.5); LYMPHOCYTES # (AUTO) 1.3 T/MM3 (1-4.8); LYMPHOCYTES % (AUTO) 15.2 % (23-45); MEAN CORPUSCULAR HGB 29.7 UUG (26-34); MEAN CORPUSCULAR HGB CONC(MCHC 31.3 GM/DL (31-37); MEAN CORPUSCULAR VOLUME 94.7 UM3 (80-100); MEAN PLATELET VOLUME 10.5 UM3 (9.4-12.4); MONOCYTES # (AUTO) 0.6 T/MM3 (0-0.8); MONOCYTES % (AUTO) 6.7 % (0-9.0); NEUTROPHILS #(AUTO)-ABSOLUTE 6.4 T/MM3 (1.8-7.7); NEUTROPHILS % (AUTO) 76.4 % (33-66); RED BLOOD COUNT 4.95 M/MM3 (4.50-5.90); WBC - WHITE BLOOD COUNT 8.4 T/MM3 (4.5-11.0)
[2016-06-09 06:32] LABS: ANION GAP 9 MEQ/L (5-15); BUN/CREATININE RATIO 21 RATIO (6-26); CALCIUM 9.1 MG/DL (8.4-10.2); CHLORIDE 102 MEQ/L (98-107); CO2 - CARBON DIOXIDE 32 MEQ/L (22-30); CREATININE 0.8 MG/DL (0.8-1.5); GLOMERULAR FILTRATION RATE 96; GLUCOSE 109 MG/DL (75-110); POTASSIUM 4.2 MEQ/L (3.6-5); SODIUM 143 MEQ/L (134-144)
[2016-06-09 08:03] VITALS: BP 142/96; PULSE 74; RESP 20; TEMP 97.7; O2SAT 95
[2016-06-09 08:04] VITALS: PULSE 74; RESP 20
--- NOTE | 2016-06-09 08:27 | DI ---
Indication: ITS.REASON: post ppm PROCEDURE: CHEST 1 VIEW: Encounter: Initial Comparison: May 26, 2015 Findings: New left-sided dual-lead cardiac pacemaker with right atrial and right ventricular leads. No definite lead fracture or discontinuity. Overlying monitoring leads. No visible pneumothorax. Cardiomediastinal contours are stable. Impression: New left cardiac pacemaker without evidence of immediate complication. .
[2016-06-09] MEDS: POTASSIUM CHLORIDE 10 MEQ TABLET PO SCH ×3 (08:37→17:30)
[2016-06-09] MEDS: MAGNESIUM OXIDE 400 MG TABLET PO SCH (08:37)
[2016-06-09] MEDS ORDERED: LOSARTAN/HCTZ 100/25 TABLET PO SCH (09:00)
[2016-06-09] MEDS ORDERED: FUROSEMIDE 80 MG TABLET PO SCH (09:00)
[2016-06-09] MEDS ORDERED: SERTRALINE 25 MG TABLET PO SCH (09:00)
--- NOTE | 2016-06-09 09:06 | DI ---
INDICATION: ITS.REASON: post ppm PROCEDURE: CHEST 2-VIEWS UPRIGHT (PA \T\ LAT) Encounter: Initial COMPARISON: June 08, 2016 FINDINGS: Left-sided dual-lead cardiac pacemaker is stable in configuration. No visible left pneumothorax. Cardiomediastinal contours and lung squires are stable. Impression: Stable appearance of the left cardiac pacemaker. .
--- NOTE | 2016-06-09 10:24 | NUR ---
CM CM IN TO VISIT WITH PT. HE IS ALERT AND ORIENTED. HE STATES THAT HE PLANS TO DC HOME. HE DENIES NEED FOR HHS. HE REPORTS THAT IF HE NEEDS ADDITIONAL SERVICES HE IS ABLE TO GET THEM THROUGH [facility]. HE REPORT THAT HE CURRENTLY DOES NOT USE ANY HHS FROM [facility]. LACE SCORE IS 3. NO FURTHER INTERVENTION NEEDED. PT IS GIVEN UPDATED CM CONTACT INFORMATION. Addendum: 06/09/16 at 1025 by MARILEE SEYMOUR RN Amended: Links added.
[2016-06-09] MEDS: FUROSEMIDE 80 MG TABLET PO SCH ×2 (12:14→13:46)
[2016-06-09 12:29] VITALS: BP 174/97; PULSE 77; RESP 20; TEMP 96.2; O2SAT 94
[2016-06-09 16:52] VITALS: BP 173/98; PULSE 71; RESP 16; TEMP 98.4; O2SAT 94
[2016-06-09] MEDS ORDERED: MINO100C43 PO (17:47)
[2016-06-09] MEDS ORDERED: OXYC1TAB8 PO (17:47)
[2016-06-09] MEDS ORDERED: MINOCYCLINE 100 MG CAPSULE PO SCH (18:00)
--- NOTE | 2016-06-09 18:10 | NUR ---
DISCHARGE PT DISCHARGED TO [facility] AT THIS TIME VIA [facility] TRANSPORT STAFF. PT TRANSPORTED BY WHEELCHAIR TO THE FRONT ENTRANCE WITH THE SUPERVISION OF STAFF. DISCHARGE INSTRUCTIONS INCLUDING DIET, ACTIVITY, MEDICATIONS, FOLLOW UP APPOINTMENT, RESTRICTIONS AND [facility] PACEMAKER INSTRUCTIONS GIVEN AND REVIEWED WITH PATIENT. SCRIPTS FOR PERCOCET AND MINOCYCLINE PROCESSED THROUGH THE [facility] THAT IS PT'S ONLY METHOD FOR OBTAINING PRESCRIPTIONS. PT VERBALIZED UNDERSTANDING OF THESE INSTRUCTIONS AND HAD NO FURTHER QUESTIONS. IVL DISCONTINUED. ARMBAND REMOVED. SLING REMAINS TO LEFT UPPER EXTREMITY.
--- NOTE | 2016-06-09 18:40 | PNPDOC ---
Subjective Date DATE: 06/09/16 TIME: 18:23 Subjective doing well . no cp or dsypnea. no pain. keeping food down. up to chair. Objective Vital Signs Vital signs Vital Signs 06/09/16 06/09/16 06/09/16 06/09/16 08:03 08:04 12:29 16:52 Temp 97.7 96.2 98.4 Pulse 74 74 77 71 Resp 20 20 20 16 B/P 142/96 174/97 173/98 Pulse Ox 95 94 94 O2 Delivery Room Air Room Air Room Air Telemetry Rhythm: Sinus Rhythm Height (Feet): 5 Height (Inches): 6.00 Weight (Kilograms): 124.600 General Alert, Obese, Orientated x 3 Eyes (Brief) EOMI, PERRL, NOT FOUND: trauma ENMT (Brief) mucosa moist Neck (Brief) NOT FOUND: JVD Respiratory (Brief) clear all squires, equal bilaterally Cardiovascular (Brief) regular rhythm Capillary Refill: <2 sec Abdomen (Brief) BS normo active x4, soft, NOT FOUND: distended, tender Lymphatic (Brief) lymphedema Musculoskeletal (Brief) NOT FOUND: deformity Integumentary (Brief) dry, pink, warm Neurologic (Brief) FOUND: cranial 2-12 intact, motor, NOT FOUND: facial droop, ptosis Psychiatric (Brief) alert, attentive, normal affect, oriented Laboratory Laboratory Laboratory Tests 06/09/16 05:55 Laboratory Tests 06/09/16 05:55 Assessment & Plan Plan/Intensity of Service s/p PPM insertion doing well. ready for d/c PATRICK GALLEGOS MD Jun 09, 2016 18:29
[2016-06-09] MEDS ORDERED: OXYCODONE/APAP 5/325 (Prepack) SENT HOME ONE (18:45)
[2016-06-09] MEDS ORDERED: LOVASTATIN 20 MG TABLET PO SCH (22:00)
[2016-06-10] MEDS ORDERED: NITR0.4T SL (12:25)
[2016-06-10] MEDS ORDERED: MAGN400T6 PO (12:25)
== END 2016-06-09 18:10 | disposition home or self-care (01) ==
LOC: CATH 07:21 → SRG 07:21 → EEVIPCON 07:21 → UNDOADMOB 17:12 → CATH 17:12 → SRG 17:12 → UNDODISOB 06-09 18:10 → CATH 06-09 18:10
PROVIDERS: ATTEND Internal Medicine Cardiovascular Disease
DX: I49.5 Sick sinus syndrome (principal); R55 Syncope and collapse; I50.30 Unspecified diastolic (congestive) heart failure; I87.2 Venous insufficiency (chronic) (peripheral); I25.10 Atherosclerotic heart disease of native coronary artery without angina pectoris; E11.9 Type 2 diabetes mellitus without complications; E78.00 Pure hypercholesterolemia, unspecified; I10 Essential (primary) hypertension; F32.9 Major depressive disorder, single episode, unspecified; I25.2 Old myocardial infarction; Z79.899 Other long term (current) drug therapy; Z79.1 Long term (current) use of non-steroidal anti-inflammatories (NSAID)
CPT/HCPCS: 33208; 36415; 71010; 71020; 80048; 85025; 93005; C1785; C1898; G0378; J0690; J2250; J3010; J3490; J7030; J7050; Q9967; 96360; 96361; 99218

== ENCOUNTER 2016-06-10 11:43 | Inpatient (IN) | payer MEDICAID ==
[~2016-06-10] VITALS: Ht 167.6 cm; Wt 123.1 kg
[~2016-06-10 11:43] MED LIST changes: -CEFAZOLIN 1 GRAM INJECTION IV ONE; -METO25TA6 PO; +MINO100C43 PO; -NORMAL SALINE 1,000 ML IV SCH; +OXYC1TAB8 PO; -VANCOMYCIN 1 G in NORMAL SALINE 250 ML IV ONE
--- OUTSIDE RECORDS SUMMARY | 2016-06-10 11:50 | XMS REPORT | Continuity of Care Document ---
Author Author [facility] Organization [facility] Address Unknown Phone Unavailable Support Name Relationship Address Phone LANDENGYPSY Caregiver [address] [place] [address] [address] [place] [address] INGE HEDRICK MD Caregiver [facility] [address] [place] [address] KANWAL CAMP MD Caregiver [address] [place] [address] [place] [phone] TONY CHIU Next Of Kin [address] [id number] Insurance Providers Payer Name Policy Number Subscriber Name Relationship Medicare [id number] Neville Cerda Sr 19 Self Advance Directives [...] Disposition 01 DISCHARGED HOME, SELF-CARE Instructions/Education Provided [facility] Congestive Heart Failure Prescriptions See Medications Section [...] F (96.8 - 99.1) Temperature (Calculated Celsius) 36.30928 degrees C (36.0 - 37.3) Temperature Source [...] 20, 2013 5:20am 5.7 % N 0-9.0 IN-Yib-J-Type Natriuretic Peptide December 19, 2013 5:24pm 3580 [...] 4.5-11.0 Name: NEVILLE CERDA SR Unit #: [id number] : 1945 Sex: M DISCHARGE SUMMARY Admit Date: 12/19/13 Report #: [id number] General Date Date DATE: 12/21/13 TIME: 12:18 [...] old male who was directed to the [facility] ED today by [facility] for chest pressure, shortness of breath and palpations. Michel reports that over the past 2 weeks he has become increasing more short of breath, especially with ambulation , exertion and laying flat. He states that about a week ago the parks recreation director took his blood pressure and told him that his heart was skipping beats. He admits to occasional bouts of palpations, most recently on 12/17. He reports that today the parks recreation director encouraged [facility] to [facility] for further evaluation of his chest pressure and dyspnea. Due to the severity of his shortness of breath, he was directed to [facility] ED for further evaluation. In the ED he reported chest pressure that is very different than his prior [place] in 2004 and states that it is [...] SCHUSTER DO 12/21/13 Metoprolol Tartrate 25 Mg Frygvi77 Mg PO BIDWM #60 TAB Prov:GYPSY SCHUSTER DO 12/21/13 Magnesium Oxide 400 Mg Kzwylc899 Mg PO BID #60 TAB Prov:GYPSY SCHUSTER DO 12/21/13 Reported Medications Sertraline HCl 25 Mg Aezvbc02 Mg PO DAILY 12/19/13 Furosemide 80 Mg Zqepky28 Mg PO BID 12/19/13 Potassium Chloride 10 Meq Tablet.sa20 Mg BID #360 03/23/13 Lovastatin 20 Mg Tablet Daily #90 03/23/13 Losartan/Hydrochlorothiazide (Losartan-Hctz 100-25 Mg Tab)1 Each Sznpsk72 Mg PO DAILY #90 03/23/13 Discharge Disposition stable Copies To 1: JAYANT HART MD, CARRIE DO Dec 21, 2013 12:27 Procedures No known history of procedures. Encounters Encounter Location Date/Time Discharged Inpatient [facility] 12/19/13 7:24pm Recent Diagnosis Pulmonary edema Chest pain Diabetes Hypertension CAD (coronary artery disease) Hypercholesteremia Depression GERD (gastroesophageal reflux disease) Morbid obesity with BMI of 45.0-49.9, adult Chest pressure Dyspnea CHF exacerbation
--- OUTSIDE RECORDS SUMMARY | 2016-06-10 11:50 | XMS REPORT | Continuity of Care Document ---
Author Author [facility] Organization [facility] Address Unknown Phone Unavailable Support Name Relationship Address Phone INGE HEDRICK MD Caregiver [facility] [address] [place] [address] PATRICK MEDINA MD Caregiver [address] [place] [address] [phone] TONY CHIU Next Of Kin [id number] [place], [place] [id number] Insurance Providers Payer Name Policy Number Subscriber Name Relationship Medicare [id number] Neville Cerda Sr 19 Self Advance Directives Directive Response Recorded Date/Time Ordered Resuscitation Status Full Code, unverified 12/25/13 8:05am Resuscitation Documents on File Yes 12/25/13 8:49am Chief Complaint and Reason for Visit Chief Complaint Chest Pain Reason for Visit Chest pressure Dyspnea [id number] Problems Medical Problems Problem Onset Date Status [...] of your legs. 3.During office hours, call [phone]. After hours, please call [facility] at [phone], and have the hydropulper operator page your Surgeon IN THE EVENT OF AN EMERGENCY, seek medical care at the nearest Emergency Room Condition at time of discharge: Good Plan of Care Discharge Date 12/21/13 1:20pm Disposition 02 TO OBS [facility] Condition at Discharge Improved Instructions/Education Provided [facility] Congestive Heart Failure Prescriptions See Medications Section [...] F (96.8 - 99.1) Temperature (Calculated Celsius) 36.76067 degrees C (36.0 - 37.3) Temperature Source [...] N 0-9.0 COMMENT WILL CALL WHEN READY YE-Aqx-W-Type Natriuretic Peptide December 19, 2013 5:24pm 3580 [...] READY Name: NEVILLE CERDA SR Unit #: [id number] : 1945 Sex: M DISCHARGE SUMMARY Admit Date: 12/19/13 Report #: [id number] General Date Date DATE: 12/21/13 TIME: 12:18 [...] old male who was directed to the [facility] ED today by [facility] for chest pressure, shortness of breath and palpations. Michel reports that over the past 2 weeks he has become increasing more short of breath, especially with ambulation , exertion and laying flat. He states that about a week ago the doggy daycare activities director took his blood pressure and told him that his heart was skipping beats. He admits to occasional bouts of palpations, most recently on 12/17. He reports that today the doggy daycare activities director encouraged [facility] to [facility] for further evaluation of his chest pressure and dyspnea. Due to the severity of his shortness of breath, he was directed to [facility] ED for further evaluation. In the ED he reported chest pressure that is very different than his prior [place] in 2004 and states that it is [...] SCHUSTER DO 12/21/13 Metoprolol Tartrate 25 Mg Rcwyhx50 Mg PO BIDWM #60 TAB Prov:EVELYN SCHUSTER DO 12/21/13 Magnesium Oxide 400 Mg Nfptqw308 Mg PO BID #60 TAB Prov:EVELYN SCHUSTER DO 12/21/13 Reported Medications Sertraline HCl 25 Mg Cbrfia14 Mg PO DAILY 12/19/13 Furosemide 80 Mg Hphlaw49 Mg PO BID 12/19/13 Potassium Chloride 10 Meq Tablet.sa20 Mg BID #360 03/23/13 Lovastatin 20 Mg Tablet Daily #90 03/23/13 Losartan/Hydrochlorothiazide (Losartan-Hctz 100-25 Mg Tab)1 Each Amkghh69 Mg PO DAILY #90 03/23/13 Discharge Disposition stable Copies To 1: JAYANT HART MD, CARRIE DO Dec 21, 2013 12:27 Procedures No known history of procedures. Encounters Encounter Location Date/Time Registered Clinic [facility] 12/25/13 8:09am Discharged Inpatient [facility] 12/19/13 7:24pm
--- OUTSIDE RECORDS SUMMARY | 2016-06-10 11:50 | XMS REPORT | Continuity of Care Document ---
Author Author [facility] Organization [facility] Address Unknown Phone Unavailable Allergies Active Description Code Type Severity Reaction Onset Reported/Identified Relationship to Patient Clinical Status Yes morphine Drug Allergy Severe RESP ARREST/ CARDIAC ARREST 05/29/2008 Medications Problems Procedures Results Encounters ACCT No. Visit Date/Time Discharge Status Pt. Type Provider Facility Loc./Unit Complaint [id number] 06/27/2013 09:50:00 2013 23:59:59 [facility] Outpatient Zoey DIAZ, [facility] HMG.SWS.PL [id number] 07/17/2012 12:50:00 2012 23:59:59 [facility] Outpatient Jaylen DIAZ, Gonzalo Douglas [facility] HAYLEE
--- NOTE | 2016-06-10 12:18 | ERPDOC ---
Departure Disposition Decision Date: Jun 10, 2016 Disposition Decision Time: 15:40 (KAROLINA PAZ APRN) Disposition: 02 TO OBS [facility] Impression Impression (KAROLINA PAZ APRN) Impression: Primary Impression: Leukocytosis Additional Impressions: Hypoxia Diarrhea Condition: Stable Seen By: Mid-level only (KAROLINA PAZ APRN) Referrals: CANDE FREEMAN MD (Family) Problems/Meds/Labs Reviewed?: Yes Medications reviewed and manag: Yes (KAROLINA PAZ APRN) Follow up care ordered?: Yes (admit obs) Mental Status: Alert, Oriented (KAROLINA PAZ APRN) Scripts Cephalexin (Cephalexin) 500 Mg Tablet 1 TAB PO TID, #6 TAB Prov: SLADE ALVARADO MD 06/15/16 Sucralfate (Sucralfate) 1 Gm Tablet 1 GM PO ACHS for GERD, #56 TAB Take 1 tablet, by mouth, 4 times a day (Before meals and at BEDTIME). Prov: SLADE ALVARADO MD 06/15/16 Metoprolol Tartrate (Metoprolol Tartrate) 25 Mg Tablet 25 MG PO BIDWM, #60 TAB Prov: SLADE ALVARADO MD 06/15/16 Losartan/Hydrochlorothiazide (Losartan-Hctz 100-25 mg Tab) 1 Each Tablet 0.5 TAB PO DAILY for HYPERTENSION, #30 TAB Prov: SLADE ALVARADO MD 06/15/16 HPI - Abdominal Pain General Chief Complaint: Nausea,Vomiting,Diarrhea Stated Complaint: N/V Time Seen by Provider: 12:14 Source: patient History/Exam Limitations: no limitations (KAROLINA PAZ APRN) Time Seen by Provider: 12:14 (ANDRES DUVAL MD) HPI - Abdominal Pain Initial Comments Neville who prefers to go by "James" is a 71 year old gentleman who underwent pacemaker insertion yesterday [place] [facility] under the care of Dr. Medina. He states he began feeling nausea and stomach rumbling prior to going home. Last night he developed diarrhea TNT and had one episode of vomiting. He vomited up his meds this morning including his antibiotic minocycline which he was ordered to take post pacer insertion. Called 911 and arrived in the [facility] after two doses of Zofran given by EMS. Patient states nausea is improving. Complains of some epigastric rumbling but denies other abdominal pain specifically. Denies fevers. Denies blood in stools. Denies chest pain beyond the incisional discomfort. Occurred At: home Onset: Rapid Duration: 12-24 hrs Quality: burning Location: epigastric Radiation: no radiation Associated Symptoms: denies symptoms (KAROLINA PAZ REWRITER) Allergies: Coded Allergies: morphine (Verified Allergy, Severe, heart stops, 06/08/16) aspirin (Verified Adverse Reaction, Unknown, nose bleed, 06/08/16) Past History Past Medical History Metabolic: diabetes, hypercholesterolemia, hypertension Cardiac: CAD, DE GI: GERD Male: UTI Neurological: CVA Psychological: depression (KAROLINA PAZ REWRITER) Surgical History General: appendix, colonoscopy, hernia, other, tonsils Cardiac: cardiac cath, pacemaker (KAROLINA PAZ REWRITER) Family History Family PMH: FOUND: cancer, diabetes, hypertension, other (KAROLINA PAZ REWRITER) Vaccines Hx Influenza Vaccination: Yes (FALL 2015) Hx Pneumococcal Vaccination: Yes (KAROLINA PAZ APRN) Social History Substance Use Type: does not use (FREDA PAZARA REWRITER) Review of Systems Constitutional Constitutional: appetite decrease, DENIES: fever (BRANDIKAROLINA REWRITER) Cardiovascular Cardiac: DENIES: chest pain (FREDA PAZARA REWRITER) Pulmonary Respiratory: DENIES: cough, dyspnea (BRANDIKAROLINA REWRITER) GI Upper Abdomen: nausea, pain, vomiting Lower Abdomen: diarrhea (FREDA PAZARA REWRITER) General: DENIES: dysuria (FREDA PAZARA REWRITER) Integumentary Skin: DENIES: rash (BRANDIKAROLINA REWRITER) All other Systems All Other Systems: Reviewed and Negative (FREDA PAZARA REWRITER) Physical Exam General General Nourishment: appears stated age, no acute distress, obese (FREDA PAZARA REWRITER) Vitals and Pain Weight: Kilograms: 124.600 Height (feet): 5 Height (inches): 6.00 Triage Pain Scale: (KAROLINA PAZ REWRITER) Eyes (brief) Eyes Brief: found: PERRL, not found: scleral icterus (FREDA PAZARA REWRITER) ENMT (brief) ENMT Brief: FOUND: mucosa moist (PAZ,KAROLINA REWRITER) Neck (brief) Neck: FOUND: trachea midline (PAZ,KAROLINA REWRITER) Respiratory (brief) Respiratory: FOUND: clear all squires, equal bilaterally (PAZ,KAROLINA REWRITER) Cardiovascular (brief) Cardiac: FOUND: peripheral edema, regular rate, regular rhythm (PAZ,KAROLINA REWRITER) Abdomen (brief) Abdominal Brief: FOUND: other (hyperactive bowel sounds), soft, tender (mild epigastric) (PAZ,KAROLINA REWRITER) Lymphatic (brief) Lymphatic Brief: FOUND: lymphedema (PAZ,KAROLINA REWRITER) Integumentary (brief) Integumentary Brief: FOUND: dry, other (lower extremity with chronic appearing discoloration), pink, warm (PAZ,KAROLINA REWRITER) Psychiatric (brief) Psychiatric Brief: FOUND: alert, attentive, normal affect, oriented (PAZ, KAROLINA REWRITER) Differential Diagnoses Considering: Bowel Obstruction, Gastroenteritis (PAZ,KAROLINA REWRITER) Progress Results/Orders Orders Procedure Category Date Status Time Cbc W/Auto LAB 06/10/16 Complete Diff-Reflex Manual 12:21 Bmp - Basic Metabolic LAB 06/10/16 Complete Panel 12:21 Iv Lock (Ed Only) EDM 06/10/16 Transmitted 12:21 Kub W/Upright RAD 06/10/16 Resulted Normal Saline (Ns) PHA 06/10/16 Complete 12:30 Lactate - Lactic Acid LAB 06/10/16 Complete UA, LAB 06/10/16 Complete Dip&Micro(Complete) & 12:29 Chest, Pa & Lateral RAD 06/10/16 Resulted Ondansetron Inj PHA 06/10/16 Complete (Zofran) 15:45 (ANDRES DUVAL MD) Lab Results Laboratory Tests Test 06/10/16 12:29 06/10/16 13:31 White Blood Count 21.4T/MM3 Red Blood Count 5.78M/MM3 Hemoglobin 17.0GM/DL Hematocrit 53.3% Mean Corpuscular Volume 92.2UM3 Mean Corpuscular Hemoglobin 29.4UUG Mean Corpuscular Hemoglobin Concent 31.9GM/DL RDW Standard Deviation 50.3FL Platelet Count 221T/MM3 Mean Platelet Volume 11.2UM3 Immature Granulocyte % (Auto) % Neutrophils (%) (Auto) % Lymphocytes (%) (Auto) % Monocytes (%) (Auto) % Eosinophils (%) (Auto) % Basophils (%) (Auto) % Absolute Immature Granulocyte (auto T/MM3 Absolute Neutrophils (auto) T/MM3 Absolute Lymphocytes (auto) T/MM3 Absolute Monocytes (auto) T/MM3 Absolute Eosinophils (auto) T/MM3 Absolute Basophils (auto) T/MM3 Neutrophils % (Manual) 93.0% Band Neutrophils % 4.0% Lymphocytes % (Manual) 1.0% Monocytes % (Manual) 2.0% Absolute Neutrophils (Manual) 19.9T/MM3 Band Neutrophils # 0.9T/MM3 Lymphocytes # (Manual) 0.2T/MM3 Monocytes # (Manual) 0.4T/MM3 Red Cell Morphology Comment Normal Urine Collection Type Urine Color Yellow Urine Turbidity Clear Urine pH 5.5 Urine Specific [place] >=1.030 Urine Protein 2+ Urine Glucose (UA) Negative Urine Ketones 1+ Urine Blood Trace-intact Urine Nitrite Negative Urine Bilirubin Negative Urine Urobilinogen 0.2EU/DL Urine Leukocyte Esterase Negative Urine RBC 1-3/HPF Urine WBC None seen/HPF Urine Bacteria Trace Urine Hyaline Casts 3-5/LPF Urine Mucus Present Urine Culture Indicated Cult not indicated Turbidity < 20 Sodium Level 147MEQ/L Potassium Level 3.5MEQ/L Chloride Level 100MEQ/L Carbon Dioxide Level 30MEQ/L Anion Gap 17MEQ/L Blood Urea Nitrogen 23.0MG/DL Creatinine 0.9MG/DL Glomerular Filtration Rate Calc 83 BUN/Creatinine Ratio 26RATIO Glucose Level 146MG/DL Calculated Osmolality 289MOSM/KG Calcium Level 9.9MG/DL Icterus Index < 2 Chemistry Specimen Hemolysis < 15 Plasma Lactate 1.5MMOL/L (ANDRES DUVAL MD) Medications Current ED Medications Sodium Chloride (NS) 500 ml @ 500 mls/hr Q1H IV ; Start 06/10/16 at 12:30; Stop 06/10/16 at 16:46; Status DC Ondansetron HCl (Zofran) 4 mg O ONCE IV Last administered on 06/10/16t 15:54; Start 06/10/16 at 15:45; Stop 06/10/16 at 15:46; Status DC (ANDRES DUVAL MD) Progress Progress 1500 - Spoke with Dr. Freeman regarding lab and KUB. With mounted WBC count >21 and hypoxia 88%, will check cxr and call him back. 1540 - Get agrees to admit pt observation 1615 - Kraig in to see patient (KAROLINA PAZ APRN) Consult/PCP Consult/PCP #1: Time Called: 15:40 Type of discussion: Phone Consult/PCP Discussion Details requests admit to hospitalist OBS for leukocytosis, n/v/d Consult/PCP #2: Physician Contacted: Get Time Called: 15:50 Time of first response: 15:52 Type of discussion: Admit Discussion/PCP Discussion Details admit obs (KAROLINA PAZ APRN) Xray Xray #1: Xray: KUB Upright Interpretation: Normal, Reviewed Written Report Xray #2: Xray: CXR PA/Lat Interpretation: Normal, Reviewed Written Report (KAROLINA PAZ APRN) KAROLINA PAZ APRN Jun 10, 2016 12:18 ANDRES DUVAL MD Jun 21, 2016 17:03 Xray Xray #1: Xray: KUB Upright Interpretation: Normal, Reviewed Written Report Xray #2: Xray: CXR PA/Lat Interpretation: Normal, Reviewed Written Report KAROLINA PAZ APRN Jun 10, 2016 12:18
--- OUTSIDE RECORDS SUMMARY | 2016-06-10 12:19 | XMS REPORT | Continuity of Care Document ---
Author Author [facility] Organization [facility] Address Unknown Phone Unavailable Allergies Active Description Code Type Severity Reaction Onset Reported/Identified Relationship to Patient Clinical Status Yes morphine Drug Allergy Severe RESP ARREST/ CARDIAC ARREST 05/29/2008 Medications Problems Procedures Results Encounters ACCT No. Visit Date/Time Discharge Status Pt. Type Provider Facility Loc./Unit Complaint [id number] 06/27/2013 09:50:00 2013 23:59:59 [facility] Outpatient Zoey DIAZ, [facility] HMG.SWS.PL [id number] 07/17/2012 12:50:00 2012 23:59:59 [facility] Outpatient Jaylen DIAZ, Gonzalo Douglas [facility] HAYLEE
--- OUTSIDE RECORDS SUMMARY | 2016-06-10 12:19 | XMS REPORT | Continuity of Care Document ---
Author Author [facility] Organization [facility] Address Unknown Phone Unavailable Support Name Relationship Address Phone LANDENGYPSY Caregiver [address] [place] [address] [address] [place] [address] INGE HEDRICK MD Caregiver [facility] [address] [place] [address] KANWLA CAMP MD Caregiver [address] [place] [address] [place] [phone] TONY CHIU Next Of Kin [address] [phone] Insurance Providers Payer Name Policy Number Subscriber Name Relationship Medicare [id number] Neville Cerda Sr 19 Self Advance Directives [...] Follow Up Appointments: Next week with Dr Mednia--his office will call for an appointment Patient Instructions: Should your symptoms return you could contact Dr Medina through the office or return to the ED for emergent evaluation Condition at time of discharge: Good Condition at time of discharge: Good Plan of Care Discharge Date 12/21/13 1:20pm Disposition 01 DISCHARGED HOME, SELF-CARE Instructions/Education Provided [facility] Congestive Heart Failure Prescriptions See Medications [...] F (96.8 - 99.1) Temperature (Calculated Celsius) 36.82821 degrees C (36.0 - 37.3) Temperature Source [...] 20, 2013 5:20am 5.7 % N 0-9.0 GA-Yiq-A-Type Natriuretic Peptide December 19, 2013 5:24pm 3580 [...] 4.5-11.0 Name: NEVILLE CERDA SR Unit #: [id number] : 1945 Sex: M DISCHARGE SUMMARY Admit Date: 12/19/13 Report #: [id number] General Date Date DATE: 12/21/13 TIME: 12:18 Attending Physician Gpysy Schuster DO Admitting Physician Gypsy Schuster DO [...] old male who was directed to the [facility] [place] today by [facility] for chest pressure, shortness of breath and palpations. Michel reports that over the past 2 weeks he has become increasing more short of breath, especially with ambulation , exertion and laying flat. He states that about a week ago the train director took his blood pressure and told him that his heart was skipping beats. He admits to occasional bouts of palpations, most recently on 12/17. He reports that today the train director encouraged [facility] further evaluation of his chest pressure and dyspnea. Due to the severity of his shortness of breath, he was directed to [facility] [place] for further evaluation. In the ED he reported chest pressure that is very different than his prior [place] in 2004 and states that it is [...] SCHUSTER DO 12/21/13 Metoprolol Tartrate 25 Mg Enznqr81 Mg PO BIDWM #60 TAB Prov:GYPSY SCHUSTER DO 12/21/13 Magnesium Oxide 400 Mg Wesmhb628 Mg PO BID #60 TAB Prov:GYPSY SCHUSTER DO 12/21/13 Reported Medications Sertraline HCl 25 Mg Xdjsjs76 Mg PO DAILY 12/19/13 Furosemide 80 Mg Nnhhll62 Mg PO BID 12/19/13 Potassium Chloride 10 Meq Tablet.sa20 Mg BID #360 03/23/13 Lovastatin 20 Mg Tablet Daily #90 03/23/13 Losartan/Hydrochlorothiazide (Losartan-Hctz 100-25 Mg Tab)1 Each Xipmaw76 Mg PO DAILY #90 03/23/13 Discharge Disposition stable Copies To 1: JAYANT HART MD, CARRIE DO Dec 21, 2013 12:27 Procedures No known history of procedures. Encounters Encounter Location Date/Time Discharged Inpatient [facility] 12/19/13 7:24pm Recent Diagnosis Pulmonary edema Chest pain Diabetes Hypertension CAD (coronary artery disease) Hypercholesteremia Depression GERD (gastroesophageal reflux disease) Morbid obesity with BMI of 45.0-49.9, adult Chest pressure Dyspnea CHF exacerbation
--- OUTSIDE RECORDS SUMMARY | 2016-06-10 12:19 | XMS REPORT | Continuity of Care Document ---
Author Author [facility] Organization [facility] Address Unknown Phone Unavailable Support Name Relationship Address Phone INGE HEDRICK MD Caregiver [facility] [address] [place] [address] PATRICK MEDINA MD Caregiver [address] [place] [address] [phone] TONY CHIU Next Of Kin [address] [address] [place], [place] [phone] Insurance Providers Payer Name Policy Number Subscriber Name Relationship Medicare [id number] Neville Cerda Sr 19 Self Advance Directives Directive Response Recorded Date/Time Ordered Resuscitation Status Full Code, unverified 12/25/13 8:05am Resuscitation Documents on File Yes 12/25/13 8:49am Chief Complaint and Reason for Visit Chief Complaint Chest Pain Reason for Visit Chest pressure Dyspnea [id number] Problems Medical Problems Problem Onset Date Status [...] of your legs. 3.During office hours, call [phone] 4. After hours, please call [facility] at [phone], and have the fine grade bulldozer operator page your Surgeon IN THE EVENT OF AN EMERGENCY, seek medical care at the nearest Emergency Room Condition at time of discharge: Good Plan of Care Discharge Date 12/21/13 1:20pm Disposition 02 TO OBS [facility] Condition at Discharge Improved Instructions/Education Provided [facility] Congestive Heart Failure Prescriptions See [...] F (96.8 - 99.1) Temperature (Calculated Celsius) 36.23801 degrees C (36.0 - 37.3) Temperature Source [...] N 0-9.0 COMMENT WILL CALL WHEN READY WP-Ihl-M-Type Natriuretic Peptide December 19, 2013 5:24pm 3580 [...] READY Name: NEVILLE CERDA SR Unit #: [id number] : 1945 Sex: M DISCHARGE SUMMARY Admit Date: 12/19/13 Report #: [id number] General Date Date DATE: 12/21/13 TIME: 12:18 [...] old male who was directed to the [facility] ED today by [facility] for chest pressure, shortness of breath and palpations. Michel reports that over the past 2 weeks he has become increasing more short of breath, especially with ambulation , exertion and laying flat. He states that about a week ago the survey operations director took his blood pressure and told him that his heart was skipping beats. He admits to occasional bouts of palpations, most recently on 12/17. He reports that today the survey operations director encouraged [facility] to [facility] for further evaluation of his chest pressure and dyspnea. Due to the severity of his shortness of breath, he was directed to [facility] ED for further evaluation. In the ED he reported chest pressure that is very different than his prior [place] in 2004 and states that it is [...] SCHUSTER DO 12/21/13 Metoprolol Tartrate 25 Mg Lnysrq06 Mg PO BIDWM #60 TAB Prov:EVELYN SCHUSTER DO 12/21/13 Magnesium Oxide 400 Mg Qxefny255 Mg PO BID #60 TAB Prov:EVELYN SCHUSTER DO 12/21/13 Reported Medications Sertraline HCl 25 Mg Jhyhrx85 Mg PO DAILY 12/19/13 Furosemide 80 Mg Hbhyto49 Mg PO BID 12/19/13 Potassium Chloride 10 Meq Tablet.sa20 Mg BID #360 03/23/13 Lovastatin 20 Mg Tablet Daily #90 03/23/13 Losartan/Hydrochlorothiazide (Losartan-Hctz 100-25 Mg Tab)1 Each Glezbx62 Mg PO DAILY #90 03/23/13 Discharge Disposition stable Copies To 1: JAYANT HART MD, CARRIE DO Dec 21, 2013 12:27 Procedures No known history of procedures. Encounters Encounter Location Date/Time Registered Clinic [facility] 12/25/13 8:09am Discharged Inpatient [facility] 12/19/13 7:24pm
[2016-06-10] MEDS ORDERED: NITR0.4T SL (12:25)
[2016-06-10] MEDS ORDERED: MAGN400T6 PO (12:25)
[2016-06-10] MEDS ORDERED: NORMAL SALINE 500 ML IV SCH (12:30)
--- NOTE | 2016-06-10 13:00 | NUR ---
TO [facility] PER CART
[2016-06-10 13:01] LABS: HCT - HEMATOCRIT 53.3 % (41-53); MEAN CORPUSCULAR HGB 29.4 UUG (26-34); MEAN CORPUSCULAR HGB CONC(MCHC 31.9 GM/DL (31-37); MEAN CORPUSCULAR VOLUME 92.2 UM3 (80-100); MEAN PLATELET VOLUME 11.2 UM3 (9.4-12.4); RED BLOOD COUNT 5.78 M/MM3 (4.50-5.90); WBC - WHITE BLOOD COUNT 21.4 T/MM3 (4.5-11.0)
[2016-06-10 13:06] LABS: ANION GAP 17 MEQ/L (5-15); BUN/CREATININE RATIO 26 RATIO (6-26); CALCIUM 9.9 MG/DL (8.4-10.2); CHLORIDE 100 MEQ/L (98-107); CO2 - CARBON DIOXIDE 30 MEQ/L (22-30); CREATININE 0.9 MG/DL (0.8-1.5); GLOMERULAR FILTRATION RATE 83; GLUCOSE 146 MG/DL (75-110); POTASSIUM 3.5 MEQ/L (3.6-5); SODIUM 147 MEQ/L (134-144)
--- NOTE | 2016-06-10 13:10 | NUR ---
RETURNED FROM [facility]
--- NOTE | 2016-06-10 13:17 | DI ---
Indication: ITS.REASON: vomiting, abd pain PROCEDURE: KUB W/UPRIGHT: Encounter: Initial Comparison: None Findings: Motion artifact on the upright view. No obvious free intraperitoneal air. Bowel gas pattern is nonobstructive and nonspecific. No abnormally dilated gas-filled small bowel or large bowel appreciated. Scattered colonic gas to the level of the rectum. Mild degenerative change in the spine. Impression: Nonobstructive nonspecific bowel gas pattern. .
[2016-06-10 13:29] LABS: BAND NEUTROPHILS # 0.9 T/MM3; LYMPHOCYTES # (MANUAL) 0.2 T/MM3 (1-4.8); MONOCYTES # (MANUAL) 0.4 T/MM3 (0-0.8); NEUTROPHILS #(MANUAL)-ABSOLUTE 19.9 T/MM3 (1.8-7.7); TOTAL CELLS COUNTED 100 %
--- NOTE | 2016-06-10 13:30 | NUR ---
MONITOR SR. VS STABLE
--- NOTE | 2016-06-10 13:50 | NUR ---
PO FLUIDS ICE WATER PROVIDED PER BRANDIE MCDONALD
--- NOTE | 2016-06-10 13:55 | NUR ---
ASSESS PT SAYS HE STILL HAS NAUSEA. & PACEMAKER SITE REMAINS PAINFUL AT 09/19
--- NOTE | 2016-06-10 14:05 | NUR ---
ACTIVITY UP AT BEDSIDE TO VOID
--- NOTE | 2016-06-10 14:14 | NUR ---
OUTPUT VOIDED 120 CC BROWN URINE
[2016-06-10 14:20] LABS: BLOOD, URINE TRACE-INTACT (NEGATIVE); COLOR,URINE YELLOW (YELLOW); LEUKOCYTE ESTERASE ,URINE NEGATIVE (NEGATIVE); NITRITE,URINE NEGATIVE (NEGATIVE); UROBILINOGEN,URINE 0.2 EU/DL (NORMAL)
[2016-06-10 14:41] LABS: BACTERIA,URINE TRACE (NEGATIVE); MUCUS,URINE PRESENT; WBC,URINE NONE SEEN /HPF (0-5)
--- NOTE | 2016-06-10 15:16 | NUR ---
TO [facility] PER CART
--- NOTE | 2016-06-10 15:30 | NUR ---
NAUSEA CONTINUES. NO VOMITING OR DIARRHEA SINCE ARRIVAL TO ER
--- NOTE | 2016-06-10 15:30 | NUR ---
RETURNED FROM CT
--- NOTE | 2016-06-10 15:30 | NUR ---
O2 STOPPED TO SEE IF SAO2 STAYS UP.
--- NOTE | 2016-06-10 15:34 | NUR ---
KAROLINA DIEGO IN
--- NOTE | 2016-06-10 15:35 | DI ---
INDICATION: ITS.REASON: HYPOXIA PROCEDURE: CHEST 2-VIEWS UPRIGHT (PA \T\ LAT) Encounter: Initial COMPARISON: June 09, 2016 FINDINGS: Unchanged appearance of the left cardiac pacemaker. No pneumothorax. Lung squires are unchanged without focal consolidation or pleural effusion. Cardiac silhouette remains enlarged. The mediastinal contours are stable. Pulmonary vascularity is within normal limits. Impression: Stable appearance of the chest without focal pneumonia or congestive failure. .
[2016-06-10] MEDS ORDERED: ONDANSETRON 4mg/2ml INJECTION IV ONE (15:45)
--- NOTE | 2016-06-10 15:51 | NUR ---
O2 RESTARTED FOR SAO2 88%
--- NOTE | 2016-06-10 16:15 | NUR ---
DR FREEMAN IN TO SEE PT
--- NOTE | 2016-06-10 16:18 | NUR ---
REPORT TO ELVI RN
--- NOTE | 2016-06-10 16:25 | NUR ---
TRANSPORTED PER WC ON O2 ACCOMPANIED BY VERNON RN. CARE ASSUMED BY ELVI SANDOVAL
--- OUTSIDE RECORDS SUMMARY | 2016-06-10 16:37 | XMS REPORT | Continuity of Care Document ---
Author Author [facility] Organization [facility] Address Unknown Phone Unavailable Support Name Relationship Address Phone INGE HEDRICK MD Caregiver [facility] [address] [place] [address] PATRICK MEDINA MD Caregiver [address] [place] [address] [phone] TONY CHIU Next Of Kin [address] [id number] [place], [place] [id number] Insurance Providers Payer Name Policy Number Subscriber Name Relationship Medicare [id number] Neville Cerda Sr 19 Self Advance Directives Directive Response Recorded Date/Time Ordered Resuscitation Status Full Code, unverified 12/25/13 8:05am Resuscitation Documents on File Yes 12/25/13 8:49am Chief Complaint and Reason for Visit Chief Complaint Chest Pain Reason for Visit Chest pressure Dyspnea [id number] Problems Medical Problems Problem Onset Date Status [...] of your legs. 3.During office hours, call [phone] 4. After hours, please call [facility] at [phone], and have the weaving machine operator page your Surgeon IN THE EVENT OF AN EMERGENCY, seek medical care at the nearest Emergency Room Condition at time of discharge: Good Plan of Care Discharge Date 12/21/13 1:20pm Disposition 02 TO OBS [facility] Condition at Discharge Improved Instructions/Education Provided [facility] Congestive Heart Failure Prescriptions See Medications Section [...] F (96.8 - 99.1) Temperature (Calculated Celsius) 36.93768 degrees C (36.0 - 37.3) Temperature Source [...] N 0-9.0 COMMENT WILL CALL WHEN READY XC-Ygn-Y-Type Natriuretic Peptide December 19, 2013 5:24pm 3580 [...] READY Name: NEVILLE CERDA SR Unit #: [id number] : 1945 Sex: M DISCHARGE SUMMARY Admit Date: 12/19/13 Report #: [id number] General Date Date DATE: 12/21/13 TIME: 12:18 [...] male who was directed to the [facility] ED today by [facility] for chest pressure, shortness of breath and palpations. Michel reports that over the past 2 weeks he has become increasing more short of breath, especially with ambulation , exertion and laying flat. He states that about a week ago the director of market research took his blood pressure and told him that his heart was skipping beats. He admits to occasional bouts of palpations, most recently on 12/17. He reports that today the director of market research encouraged him to go to [facility] for further evaluation of his chest pressure and dyspnea. Due to the severity of his shortness of breath, he was directed to [facility] ED for further evaluation. In the ED he reported chest pressure that is very different than his prior [place] in 2004 and states that it is [...] SCHUSTER DO 12/21/13 Metoprolol Tartrate 25 Mg Xxdyqj83 Mg PO BIDWM #60 TAB Prov:EVELYN SCHUSTER DO 12/21/13 Magnesium Oxide 400 Mg Pmfabt249 Mg PO BID #60 TAB Prov:EVELYN SCHUSTER DO 12/21/13 Reported Medications Sertraline HCl 25 Mg Erwkuj72 Mg PO DAILY 12/19/13 Furosemide 80 Mg Wcrnhp87 Mg PO BID 12/19/13 Potassium Chloride 10 Meq Tablet.sa20 Mg BID #360 03/23/13 Lovastatin 20 Mg Tablet Daily #90 03/23/13 Losartan/Hydrochlorothiazide (Losartan-Hctz 100-25 Mg Tab)1 Each Delbta29 Mg PO DAILY #90 03/23/13 Discharge Disposition stable Copies To 1: JAYANT HART MD, CARRIE DO Dec 21, 2013 12:27 Procedures No known history of procedures. Encounters Encounter Location Date/Time Registered Clinic [facility] 12/25/13 8:09am Discharged Inpatient [facility] 12/19/13 7:24pm
[2016-06-10 16:38] VITALS: BP 151/81; PULSE 80; RESP 16; TEMP 97.2; O2SAT 95
--- OUTSIDE RECORDS SUMMARY | 2016-06-10 16:38 | XMS REPORT | Continuity of Care Document ---
Author Author [facility] Organization [facility] Address Unknown Phone Unavailable Support Name Relationship Address Phone LANDENGYPSY Caregiver [address] [place] [address] [address] [place] [address] INGE HEDRICK MD Caregiver [facility] [address] [place] [address] KANWAL CAMP MD Caregiver [address] [place] [address] [place] [phone] TONY CHIU Next Of Kin [address] [phone] Insurance Providers Payer Name Policy Number Subscriber Name Relationship Medicare [id number] Neville Cerda Sr 19 Self Advance Directives [...] Disposition 01 DISCHARGED HOME, SELF-CARE Instructions/Education Provided [facility] Congestive Heart Failure Prescriptions See Medications Section [...] F (96.8 - 99.1) Temperature (Calculated Celsius) 36.48768 degrees C (36.0 - 37.3) Temperature Source [...] 20, 2013 5:20am 5.7 % N 0-9.0 JK-Owl-R-Type Natriuretic Peptide December 19, 2013 5:24pm 3580 [...] 4.5-11.0 Name: NEVILLE CERDA SR Unit #: [id number] : 1945 Sex: M DISCHARGE SUMMARY Admit Date: 12/19/13 Report #: [id number] General Date Date DATE: 12/21/13 TIME: 12:18 [...] old male who was directed to the [facility] ED today by [facility] for chest pressure, shortness of breath and palpations. Michel reports that over the past 2 weeks he has become increasing more short of breath, especially with ambulation , exertion and laying flat. He states that about a week ago the director data took his blood pressure and told him that his heart was skipping beats. He admits to occasional bouts of palpations, most recently on 12/17. He reports that today the director data encouraged [facility] evaluation of his chest pressure and dyspnea. Due to the severity of his shortness of breath, he was directed to [facility] for further evaluation. In the ED he reported chest pressure that is very different than his prior [place] in 2004 and states that it is [...] SCHUSTER DO 12/21/13 Metoprolol Tartrate 25 Mg Axevsd11 Mg PO BIDWM #60 TAB Prov:GYPSY SCHUSTER DO 12/21/13 Magnesium Oxide 400 Mg Msmrad131 Mg PO BID #60 TAB Prov:GYPSY SCHUSTER DO 12/21/13 Reported Medications Sertraline HCl 25 Mg Njspab09 Mg PO DAILY 12/19/13 Furosemide 80 Mg Tguxam31 Mg PO BID 12/19/13 Potassium Chloride 10 Meq Tablet.sa20 Mg BID #360 03/23/13 Lovastatin 20 Mg Tablet Daily #90 03/23/13 Losartan/Hydrochlorothiazide (Losartan-Hctz 100-25 Mg Tab)1 Each Dphelk44 Mg PO DAILY #90 03/23/13 Discharge Disposition stable Copies To 1: JAYANT HART MD, CARRIE DO Dec 21, 2013 12:27 Procedures No known history of procedures. Encounters Encounter Location Date/Time Discharged Inpatient [facility] 12/19/13 7:24pm Recent Diagnosis Pulmonary edema Chest pain Diabetes Hypertension CAD (coronary artery disease) Hypercholesteremia Depression GERD (gastroesophageal reflux disease) Morbid obesity with BMI of 45.0-49.9, adult Chest pressure Dyspnea CHF exacerbation
--- OUTSIDE RECORDS SUMMARY | 2016-06-10 16:38 | XMS REPORT | Continuity of Care Document ---
Author Author [facility] Organization [facility] Address Unknown Phone Unavailable Allergies Active Description Code Type Severity Reaction Onset Reported/Identified Relationship to Patient Clinical Status Yes morphine Drug Allergy Severe RESP ARREST/ CARDIAC ARREST 05/29/2008 Medications Problems Procedures Results Encounters ACCT No. Visit Date/Time Discharge Status Pt. Type Provider Facility Loc./Unit Complaint [id number] 06/27/2013 09:50:00 2013 23:59:59 [facility] Outpatient Zoey DIAZ, [facility].S[facility].PL [id number] 07/17/2012 12:50:00 2012 23:59:59 [facility] Outpatient Jaylen DIAZ, Gonzalo Douglas [facility] HAYLEE
[2016-06-10] MEDS: D5-1/2 NS KCL 20 MEQ 1,000 ML IV SCH (16:56)
[2016-06-10 16:59] VITALS: Ht 167.6 cm; Wt 123.1 kg
[2016-06-10] MEDS ORDERED: MAG-AL + SIM LIQUID 30 ML UDC PO PRN (17:00)
[2016-06-10] MEDS ORDERED: PRN ORDERS MC (17:00)
[2016-06-10] MEDS ORDERED: ACETAMINOPHEN 325 MG TABLET PO PRN (17:00)
[2016-06-10] MEDS ORDERED: BISACODYL 10 MG SUPPOSITORY RECTALLY PRN (17:00)
[2016-06-10] MEDS ORDERED: OXYCODONE/APAP 5mg/325mg TABLET PO PRN (17:00)
[2016-06-10] MEDS ORDERED: MILK OF MAGNESIA 30 ML SUSP PO PRN (17:00)
--- NOTE | 2016-06-10 17:15 | NUR ---
Report received from Sol RN and care assumed. Pt reports cramping across lower abdomen and nausea persists.Bowel sounds hyperactive and instructed pt. regarding need for stool specimen. Denies emesis since this a.m. Pt is alert and oriented x4 and denies pain at PPM site but has "some tenderness" there. Pt aware of clear liquid diet and water and jello provided.
[2016-06-10] MEDS: POTASSIUM CHLORIDE 10 MEQ TABLET PO SCH (17:30)
[2016-06-10] MEDS: CEFAZOLIN 2 G in NORMAL SALINE 100 ML IV SCH (17:57)
[2016-06-10 19:09] VITALS: BP 145/79; PULSE 81; RESP 16; TEMP 99; O2SAT 93
--- NOTE | 2016-06-10 19:31 | NUR ---
Report given to Tianna RN and pt reports continued nausea and small amts of frothy white-clear mucous. IV fluids continued and Dr. Deutsch here to see patient. Pt continues to refuse SCDs and order for Lovenox noted.
[2016-06-10] MEDS ORDERED: METRONIDAZOLE IVPB 500 MG in NORMAL SALINE 100 ML IV ONE (21:00)
--- NOTE | 2016-06-10 21:07 | HPF ---
CHIEF COMPLAINT Diarrhea, vomiting. HISTORY OF PRESENT ILLNESS Mr. Bolanos is a 71-year-old gentleman who presents to [facility] Emergency Room secondary to diarrhea and vomiting. He was in observation status at [facility] from 06/08/2016 through 06/09/2016 due to pacemaker placement. During that time, he was feeling fairly well. His pacemaker was placed without untoward problems. Since then he feels that he has not been noticing anything untoward with his heart. While hospitalized his white count and hemoglobin were normal. He was also afebrile. He was discharged to home in stable condition. He did report feeling some slight nausea and a little bit of rumbling in his stomach but nothing pronounced. Unfortunately, when he got home later that evening he started having significant episodes of loose stool. It is uncertain how many he had, as the quantity was so high. He is quite nauseated and not able to eat or drink well. This morning symptoms persisted. He is more nauseated and had an episode of emesis when he tried to take his medications. He notes diffuse abdominal pain. He does note some chills. He has been feeling more weak and run down since his symptoms onset. He is not noticing shortness of breath or congestion. At times he will note a little bit of cough but no sputum. He denies sinus pressure but occasionally will have drainage. He presented to the emergency room where he was evaluated. Blood pressure is in the 150s to 170s. He is not tachycardic. He was hypoxic with 88% room air saturation. Additionally, his white count was elevated at 21.4 with 93% neutrophils and 4% bands. Yesterday his white count was normal. Hemoglobin also is increased to 17 while yesterday it was 14.7. Creatinine fortunately is stable at 0.9, but his blood urea nitrogen is increased to 23, sodium increased to 147, with potassium decreased at 3.5. Despite IV fluids and antiemetics in the emergency room, his symptoms persisted. In light of his leukocytosis and continued nausea, Dr. Deutsch was notified and patient was subsequently placed in outpatient observation status. It is thought that his length of stay will be less than two midnights. PAST MEDICAL HISTORY 1. Coronary artery disease with history of DC. 2. CHF--chronic diastolic heart failure. 3. Hypertension. 4. Obstructive sleep apnea. 5. GERD. 6. Osteoarthritis. 7. Depression. 8. Impaired glucose tolerance. 9. Morbid obesity. 10. History of pacemaker placement 06/08/2016. 11. History of cataract removal. 12. History of tonsillectomy. 13. History of EGD/colonoscopy around 2012. ALLERGIES Morphine, aspirin. MEDICATIONS Minocycline 100 mg b.i.d. x7 days--started to yesterday. Percocet 5/325 mg one to two q.6h. p.r.n. pain. Furosemide 80 mg b.i.d. Losartan HCT 100/25 mg daily. Lovastatin 20 mg daily. Magnesium oxide 400 mg b.i.d. Potassium 20 mEq t.i.d. Zoloft 25 mg q.h.s. Nitroglycerin 0.4 mg sublingual p.r.n. chest pain. SOCIAL HISTORY Patient is . He resides at [facility] in independent living. He has a remote history of smoking. He sees Dr. Medina for cardiac care. He sees Dr. Cornell for primary care. FAMILY HISTORY Family history significant for diabetes and hypertension. REVIEW OF SYSTEMS As above. GENERAL: He notes chills but no fevers. Appetite has been very diminished since his nausea and he has not been able to eat or drink. He feels more weak in general. HEENT: Notes sinus drainage but denies congestion or pain. Vision and hearing are stable. RESPIRATORY: Notes cough but without sputum. Denies pain with breathing or shortness of air. CARDIOVASCULAR: Denies chest pressure, pain, or palpitations. GI: As above. : Denies urinary pain or discomfort. NEUROLOGIC: Denies unilateral weakness, numbness, slurred speech. Does note global weakness in general since his acute symptoms onset. The remainder of 10-point Review of Systems is negative. PHYSICAL EXAMINATION VITAL SIGNS: Height 66 inches. Weight 124.7 kg. BMI 44.4. Temperature 98.9. Pulse 85, regular. Respiratory rate 14 to 20, unlabored. Blood pressure 172/89. 88% room air saturation. GENERAL: Well-developed, well-nourished, obese gentleman who is awake and alert. He interacts appropriate. HEENT: NC/AT. PERRLA. EOMI. Mucous membranes slightly dry. NECK: Supple. LUNGS: Decreased breath sounds bilaterally. I am not appreciating crackles or wheeze. He breathes comfortably without distress. CARDIOVASCULAR: Regular rate and rhythm. ABDOMEN: Soft, obese, with slight distention. Bowel sounds are decreased. I am appreciating slight diffuse tenderness but no rebound tenderness or guarding. EXTREMITIES: No clubbing or cyanosis. Chronic lower extremity venous stasis changes are noted on both lower extremities. NEUROLOGIC: Patient is awake and alert. Cranial nerves II-XII appear grossly intact. I am not appreciating focal deficits. PSYCHIATRIC: Patient is awake, alert, and oriented. Thoughts are linear. He is not itchy or restless. SKIN: Warm and dry. LABORATORY White blood count is 21.4, with 93% neutrophils, and 4% bands. Hemoglobin 17.0, with hematocrit 53.3, MCV 92.2, and platelets 221,000. Serum sodium is 147, potassium 3.5, chloride 100, CO2 30, BUN 23, with creatinine 0.9, GFR 83, and blood glucose 146. Calculated osmolality is elevated at 289. Lactate is 1.5. UA reveals elevated specific gravity greater than or equal to 1.030, with 2+ protein, 1+ ketones, trace blood, and trace bacteria. ASSESSMENT 1. Gastroenteritis of uncertain etiology--possible viral. 2. Leukocytosis secondary to above. 3. Hypernatremia (present on admission)--secondary to GI fluid loss. 4. Hypokalemia (present on admission)--secondary to GI fluid loss. 5. Dehydration. 6. Hypoxia. 7. Recent permanent pacemaker placement. 8. Coronary artery disease. 9. Chronic diastolic heart failure. 10. Hypertension. 11. Obstructive sleep apnea--patient reluctant for CPAP. 12. Osteoarthritis. 13. Chronic depression. 14. Morbid obesity with BMI 44.4. PLAN 1. Will place patient outpatient observation status at [facility] under the care of Dr. Deutsch. 2. Start IV fluids of half-normal saline with 20 mEq of potassium at 125 mL an hour for hydration. 3. Will start metronidazole 500 mg IV q.8h. for empiric antimicrobial coverage of GI pathogens. 4. Obtain stool sample for GI pathogens. 5. Initiate Lovenox 40 mg subcutaneous daily for DVT prophylaxis. 6. Patient's home medications, other than his Lasix, will be continued. Will hold on Lasix secondary to dehydration--present on admission. 7. Have Zofran available to help with nausea. 8. Discussed case with Dr. Medina. He did feel Ancef 2 grams IV every 8 hours would be prudent given his recent pacemaker placement and inability to keep oral minocycline down. Of note, his pacemaker site does look clean and dry. There is no redness or erythema. 9. Recheck CBC and CMP in a.m. 10. Patient will be DNR as per his request. 11. Patient's care will be returned to Dr. Cornell at time of discharge from [facility]. TAYLOR
[2016-06-10] MEDS: ENOXAPARIN 40 MG/0.4 ML INJECTION SQ SCH (21:48)
[2016-06-10] MEDS: MAGNESIUM OXIDE 400 MG TABLET PO SCH (21:49)
[2016-06-10] MEDS: LOVASTATIN 20 MG TABLET PO SCH (21:49)
[2016-06-10] MEDS: SERTRALINE 25 MG TABLET PO SCH (21:49)
[2016-06-10] MEDS: ONDANSETRON 4mg/2ml INJECTION IV PRN (22:45)
[2016-06-11] VITALS: BP 136/93; PULSE 74; RESP 19; TEMP 96.3; O2SAT 97
[2016-06-11] MEDS: METRONIDAZOLE IVPB 500 MG in NORMAL SALINE 100 ML IV SCH ×2 (00:47→08:35)
[2016-06-11] MEDS ORDERED: PROMETHAZINE 25 MG INJECTION IV PRN (01:15)
[2016-06-11] MEDS: CEFAZOLIN 2 G in NORMAL SALINE 100 ML IV SCH ×3 (02:30→17:21)
[2016-06-11] MEDS: D5-1/2 NS KCL 20 MEQ 1,000 ML IV SCH ×3 (04:08→17:22)
[2016-06-11] MEDS: ONDANSETRON 4mg/2ml INJECTION IV PRN ×3 (04:08→17:30)
--- NOTE | 2016-06-11 05:06 | NUR ---
PT IS ALERT AND ORIENTED. CONTINUES TO BE EXTREMELY NAUSEATED DESPITE ZOFRAN AND PHENERGAN. IV IN THE RIGHT FOREARM RUNNING D5.45NS W 20 KCL AT 125 MLS/HR. PT IS SPITTING UP MEDIUM AMOUNT OF WHITE/CLEAR FROTHY SUBSTANCE. PT IS ABLE TO WALK TO THE BATHROOM. PT HAS HAD A LARGE AMOUNT OF DARK BROWN WATERY DIARRHEA. DENIES PAIN. HAS SLEPT VERY LITTLE.
[2016-06-11 05:43] LABS: HCT - HEMATOCRIT 48.8 % (41-53); HGB - HEMOGLOBIN 15.8 GM/DL (13.5-17.5); MEAN CORPUSCULAR HGB 30.4 UUG (26-34); MEAN CORPUSCULAR HGB CONC(MCHC 32.4 GM/DL (31-37); MEAN PLATELET VOLUME 10.6 UM3 (9.4-12.4); RED BLOOD COUNT 5.19 M/MM3 (4.50-5.90)
[2016-06-11 05:46] LABS: ALBUMIN 3.7 G/DL (3.5-5.0); ALBUMIN/GLOBULIN RATIO 1.1 RATIO (1.1-2.2); ALKALINE PHOSPHATASE 80 U/L (38-126); ALT (SGPT) 25 U/L (21-72); ANION GAP 11 MEQ/L (5-15); AST (SGOT) 30 U/L (17-59); BUN/CREATININE RATIO 32 RATIO (6-26); CALCIUM 8.4 MG/DL (8.4-10.2); CHLORIDE 101 MEQ/L (98-107); CO2 - CARBON DIOXIDE 32 MEQ/L (22-30); CREATININE 0.9 MG/DL (0.8-1.5); GLOMERULAR FILTRATION RATE 83; GLUCOSE 177 MG/DL (75-110); POTASSIUM 3.7 MEQ/L (3.6-5); SODIUM 144 MEQ/L (134-144); TOTAL PROTEIN 7.1 G/DL (6.3-8.2)
[2016-06-11 06:49] LABS: BAND NEUTROPHILS # 2.2 T/MM3; LYMPHOCYTES # (MANUAL) 1.1 T/MM3 (1-4.8); MONOCYTES # (MANUAL) 0.7 T/MM3 (0-0.8); TOTAL CELLS COUNTED 100 %
[2016-06-11 06:50] LABS: ANISOCYTOSIS 1+
[2016-06-11 07:35] VITALS: BP 140/81; PULSE 68; RESP 16; TEMP 96.6; O2SAT 95
[2016-06-11] MEDS ORDERED: PROMETHAZINE 50 MG INJECTION IV PRN (07:45)
[2016-06-11] MEDS: POTASSIUM CHLORIDE 10 MEQ TABLET PO SCH ×3 (08:00→17:24)
[2016-06-11] MEDS: NITROGLYCERIN 0.4 MG SUBLINGUAL TABLET SL PRN ×2 (10:39→10:48)
[2016-06-11] MEDS: ENOXAPARIN 40 MG/0.4 ML INJECTION SQ SCH (10:40)
--- NOTE | 2016-06-11 10:50 | NUR ---
Chest pain/ Notified Pt c/o of chest pain while getting Phenergan for c/o nausea at 1030. This RN questioned patient, who says he has had chest pain off and on all night last night as well. Pt states it started again just now, rates 10/10. BP 142/75, pulse 76, oxygen 93% on 1L. No changes on telemetry. Two doses of nitroglycerin given with no change in pain. Dr. Deutsch notified at this time. Order for troponin draw. Will continue to monitor.
[2016-06-11] MEDS: MAGNESIUM OXIDE 400 MG TABLET PO SCH ×2 (11:54→21:08)
[2016-06-11] MEDS: LOSARTAN/HCTZ 100/25 TABLET PO SCH (11:54)
--- NOTE | 2016-06-11 12:00 | NUR ---
Pain Patient continues to c/o chest pain, even after 2 nitro doses and phenergan. Patient states he has GERD, wonders if pain is from reflux. PRN Percocet given and will ask Dr. Deutsch for order for med for GERD.
--- NOTE | 2016-06-11 12:02 | NUR ---
KARLA ACOSTA VISITED PT. CM EXPLAINED ROLE AND PROVIDED CONTACT INFORMATION. PT PLANS TO RETURN HOME POST HOSPITAL STAY. PT DENIES NEEDS. STATES HE HAS ASSISTANCE FROM THE [facility]. PT IS AWARE TO CONTACT CM IF NEEDS ARISE.
[2016-06-11] MEDS ORDERED: PANTOPRAZOLE 40mg INJECTION IV SCH (12:30)
--- NOTE | 2016-06-11 14:08 | NUR ---
Notified Dr. Deutsch notified that patient's hemoccult test resulted positive this afternoon. No further orders. Will continue to monitor.
[2016-06-11 15:17] VITALS: BP 138/89; PULSE 68; RESP 16; TEMP 96; O2SAT 95
--- NOTE | 2016-06-11 16:59 | PNPDOC ---
Subjective Date DATE: 06/11/16 TIME: 16:42 Subjective F/U: Gastroenteritis, Leukocytosis Rough day. Still very nauseated - requiring IV antiemetics. No appetite, not interested in eating. Less frequent stools, but still loss. Occult blood was positive. Noted chest pain - pt thought possible reflux in nature. Initial troponin Neg. Breathing about the same-slight congestion and still needing O2. No palpitations. Very tired and sleepy today. No f/c. Objective Vital Signs Vital signs Vital Signs Date Time Temp Pulse Resp B/P Pulse Ox O2 Delivery O2 Flow Rate FiO2 06/11/16 15:17 96.0 68 16 138/89 95 Nasal Cannula 1.00 Height (Feet): 5 Height (Inches): 6.00 Weight (Kilograms): 126.000 General General Appearance: Alert, Obese, Orientated x 3, Well Nourished, Well Developed, Cooperative, Mild Distress, Looks Stated Age Eyes (Brief) Eyes: FOUND: EOMI, PERRL, NOT FOUND: scleral icterus ENMT (Brief) ENMT: FOUND: hearing intact, mucosa moist Neck (Brief) Neck: FOUND: midline, NOT FOUND: nuchal rigidity, spasm Respiratory (Brief) Respiratory: FOUND: clear all squires (Decreased breath sound, but no crackles or wheezes. ), equal bilaterally, other (No distress on O2 ), NOT FOUND: wheezes Cardiovascular (Brief) Cardiac: FOUND: regular rate, regular rhythm Abdomen (Brief) Abdominal: FOUND: BS normo active x4, distended, soft, tender (Mild diffuse. ) Extremities (Brief) Extremity : Side: Bilateral Extremity: leg Extremity Finding: FOUND: edema (+2) Musculoskeletal (Brief) Musculoskeletal: FOUND: extremities move equally, NOT FOUND: deformity, spasm Integumentary (Brief) Integumentary: FOUND: dry, other (Pacer site without erythema or drainage. ), warm Neurologic (Brief) Neurological: FOUND: cranial 2-12 intact, motor (Intact ) Psychiatric (Brief) Psychiatric: FOUND: alert, attentive, normal affect, oriented Laboratory Laboratory Laboratory Tests 06/10/16 12:29 06/11/16 05:21 Laboratory Tests 06/10/16 12:29 06/11/16 05:21 Microbiology Microbiology Microbiology Date/Time Source Procedure Growth Status 06/10/16 18:11 Peripheral/Iv Start Blood Culture - Preliminary CULTURE INITIATED - RESULTS PENDING Resulted 06/10/16 18:11 Peripheral/Iv Start Blood Culture - Preliminary CULTURE INITIATED - RESULTS PENDING Resulted Assessment & Plan Problems: (1) Gastroenteritis Status: Acute (2) Leukocytosis Status: Acute (3) Melena Status: Acute (4) Hypernatremia Status: Resolved Assessment & Plan: POA (5) Hypokalemia Status: Resolved Assessment & Plan: POA (6) Hypoxia Status: Acute Assessment & Plan: POA (7) Dehydration Status: Resolved Assessment & Plan: POA (8) CAD (coronary artery disease) Status: Chronic Qualifiers: Coronary Disease-Associated Artery/Lesion type: [place] artery [place] vs. transplanted heart: [place] heart Associated angina: without angina Qualified Codes: I25.10 - Atherosclerotic heart disease of [place] coronary artery without angina pectoris (9) Hypertension Status: Chronic (10) Hypercholesteremia Status: Chronic (11) Obstructive sleep apnea Status: Chronic Assessment & Plan: Not able to tolerate CPAP (12) Osteoarthritis Status: Chronic Qualifiers: Osteoarthritis location: multiple joints Osteoarthritis type: primary Qualified Codes: M15.0 - Primary generalized (osteo)arthritis (13) Depression Status: Chronic Qualifiers: Depression Type: unspecified Qualified Codes: F32.9 - Major depressive disorder, single episode, unspecified (14) Morbid obesity with BMI of 45.0-49.9, adult Status: Chronic Plan/Intensity of Service With continued nausea requiring IV antiemetics and inability to maintain oral intake, coupled with persistent leukocytosis- will change to inpatient admission. Decrease IVF to 100cc/hr. Start Protonix due to reflux and melena. Hold Lovenox due to melena. Continue Ancef - july d/c metronidazole. Continue nausea control. IS to help hypoxia - supplemental O2 as needed. Recheck CBC in am due to leukocytosis and melena. Repeat BMP in am due to IVF use. Case discussed with CM and Dr Cornell. Time spent with pt care 35 minutes. DVT Prophylaxis: Lovenox (Held due to melena) Code Status Do Not Resuscitate Hospital Course Summary Disclaimer The hospital course summary below is not to be considered part of the above Progress Note. Hospital Course Summary 06/[address] patient outpatient observation status at [facility] under the care of Dr. Deutsch. Start IV fluids of half-normal saline with 20 mEq of potassium at 125 mL an hour for hydration. Will start metronidazole 500 mg IV q.8h. for empiric antimicrobial coverage of GI pathogens. Obtain stool sample for GI pathogens. Initiate Lovenox 40 mg subcutaneous daily for DVT prophylaxis. Patient's home medications, other than his Lasix, will be continued. Will hold on Lasix secondary to dehydration--present on admission. Have Zofran available to help with nausea. Discussed case with Dr. Medina. He did feel Ancef 2 grams IV every 8 hours would be prudent given his recent pacemaker placement and inability to keep oral minocycline down. Of note, his pacemaker site does look clean and dry. There is no redness or erythema. Recheck CBC and CMP in a.m. Patient will be DNR as per his request. Patient's care will be returned to Dr. Cornell at time of discharge from [facility]. 06/11 Rough day. Still very nauseated - requiring IV antiemetics. No appetite, not interested in eating. Less frequent stools, but still loss. Occult blood was positive. Noted chest pain - pt thought possible reflux in nature. Initial troponin Neg. Breathing about the same-slight congestion and still needing O2. No palpitations. Very tired and sleepy today. No f/c. WBC with continued elevation at 22.0. Sodium and potassium improved. With continued nausea requiring IV antiemetics and inability to maintain oral intake, coupled with persistent leukocytosis- will change to inpatient admission. Anticipate greater than 2 midnights of care required. Decrease IVF to 100cc/hr. Start Protonix due to reflux and melena. Hold Lovenox due to melena. Continue Ancef - may d/c metronidazole. Continue nausea control. IS to help hypoxia - supplemental O2 as needed. Recheck CBC in am due to leukocytosis and melena. Repeat BMP in am due to IVF use. SLADE DEUTSCH MD Jun 11, 2016 16:46
[2016-06-11 17:38] LABS: HCT - HEMATOCRIT 48.1 % (41-53); HGB - HEMOGLOBIN 15.3 GM/DL (13.5-17.5); MEAN CORPUSCULAR HGB 30.2 UUG (26-34); MEAN CORPUSCULAR HGB CONC(MCHC 31.8 GM/DL (31-37); MEAN CORPUSCULAR VOLUME 95.1 UM3 (80-100); MEAN PLATELET VOLUME 10.6 UM3 (9.4-12.4); RED BLOOD COUNT 5.06 M/MM3 (4.50-5.90)
[2016-06-11 17:41] LABS: WBC - WHITE BLOOD COUNT 27.9 T/MM3 (4.5-11.0)
--- NOTE | 2016-06-11 17:59 | NUR ---
WBC increase Dr. Deutsch notified of patient's increased in WBC from 22 to 27 this afternoon. No further orders. Will continue to monitor
--- NOTE | 2016-06-11 18:21 | NUR ---
Shift Summary Patient alert and oriented x3 this shift. VSS. On 1L NC, weaned down to RA. Patient very fatigued today, slept most of the day. Up to bathroom with assist x1. Patient had one liquid stool today. IV infusing as ordered through right AC IV. Patient c/o nausea and pain today. Given PRN phenergan and zofran. C/o chest pain today, see previous notes. Currently resting in bed with alarm on and call light within reach.
[2016-06-11 20:21] VITALS: PULSE 68; RESP 16
--- NOTE | 2016-06-11 20:24 | NUR ---
RUN OF V-TACH Pt resting in room and I was called by library acquisitions technician, for run of V-TACH. PT had 16 beat run of V-TACH. Pt denies chest pain, denies fluttering in chest. Pt put on O2 @ 2L per NC for support. Pt continues to be responsive and A/O x 3 after encouraging some interaction. Dr. Deutsch in the hallway and saw telemetry strip. No need to call Dr. Medina at this time. PT is stable. Will continue to monitor.
[2016-06-11] MEDS: PANTOPRAZOLE 40mg INJECTION IV SCH (21:04)
[2016-06-11] MEDS: SERTRALINE 25 MG TABLET PO SCH (21:08)
[2016-06-11] MEDS: LOVASTATIN 20 MG TABLET PO SCH (21:08)
--- NOTE | 2016-06-11 21:19 | NUR ---
CPAP/SIMPLE MASK/ACID REFLUX Pt denied chest discomfort and pain; when assisted to scoot up in bed and laying head of bed down and feet up, Pt states, "Oh yeah it hurts right here." Pt says, "It's that acid". Pt states it doesn't radiate anywhere and no jaw pain. Pt also c/o throat and "acid" feeling when he took a drink of water prior to HS meds. Pt telemetry has had no change since V-Tach run. Will continue to monitor. Pt on O2 per NC and moved to simple mask due to sleep apnea. Pt states he has a CPAP "at home, but I don't wear it." When asked why he doesn't wear it, Pt states, "I get bloody noses from it." PT on O2 @ 2L per simple mask and bubbler. Will continue to monitor. Pt states he will push call light if having chest pain or if the "acid" feeling increases. Bed locked and low. Bed alarm on.
[2016-06-11] MEDS ORDERED: OMEP20TA2 PO (23:22)
[2016-06-11 23:51] VITALS: BP 121/72; PULSE 66; RESP 18; TEMP 98; O2SAT 99
[2016-06-12] MEDS: CEFAZOLIN 2 G in NORMAL SALINE 100 ML IV SCH ×3 (01:50→17:51)
[2016-06-12] MEDS: D5-1/2 NS KCL 20 MEQ 1,000 ML IV SCH ×2 (01:50→12:43)
[2016-06-12 05:40] LABS: HCT - HEMATOCRIT 44.3 % (41-53); HGB - HEMOGLOBIN 13.9 GM/DL (13.5-17.5); MEAN CORPUSCULAR HGB 30.1 UUG (26-34); MEAN CORPUSCULAR HGB CONC(MCHC 31.4 GM/DL (31-37); MEAN CORPUSCULAR VOLUME 95.9 UM3 (80-100); MEAN PLATELET VOLUME 10.8 UM3 (9.4-12.4); RED BLOOD COUNT 4.62 M/MM3 (4.50-5.90)
[2016-06-12 05:55] LABS: ALKALINE PHOSPHATASE 62 U/L (38-126); ALT (SGPT) 21 U/L (21-72); ANION GAP 10 MEQ/L (5-15); AST (SGOT) 21 U/L (17-59); BUN/CREATININE RATIO 29 RATIO (6-26); C-REACTIVE PROTEIN 59.8 MG/L (0-9); CALCIUM 8.2 MG/DL (8.4-10.2); CHLORIDE 108 MEQ/L (98-107); CO2 - CARBON DIOXIDE 25 MEQ/L (22-30); CREATININE 0.9 MG/DL (0.8-1.5); GLOMERULAR FILTRATION RATE 83; GLUCOSE 128 MG/DL (75-110); POTASSIUM 4.6 MEQ/L (3.6-5); SODIUM 143 MEQ/L (134-144); TOTAL PROTEIN 5.9 G/DL (6.3-8.2)
[2016-06-12 05:57] LABS: BAND NEUTROPHILS # 0.4 T/MM3; LYMPHOCYTES # (MANUAL) 1.1 T/MM3 (1-4.8); NEUTROPHILS #(MANUAL)-ABSOLUTE 16.6 T/MM3 (1.8-7.7); TOTAL CELLS COUNTED 100 %
[2016-06-12 07:29] VITALS: BP 108/58; PULSE 77; RESP 18; TEMP 97.3; O2SAT 90
--- NOTE | 2016-06-12 07:33 | NUR ---
Shift Summary PT has been stable throughout the night, got up once to void, see output. Pt had liquid black stool and pinkish tinged urine. Pt denied pain when getting up with assist x 1 with gait belt and non-skid socks on to bathroom. Pt did have some smear nunez on breif, able to change brief with little assistance. Pt remains oriented x 3 when awaken to do cares. Pt IV is sometimes positional due to R AC position. I spoke with ex- Willa last night and gave her update on Pt's condition. Pt in no acute distress. Pt did have some dizziness when sitting on side of bed before going to bathroom. Dizziness subsided once sitting up for 1 minute. Pt continues to have blackened gangrene legs, refuses SCD's because of his tender legs. Pt had no emesis and slight nausea when up to the bathroom, but no PRN medication given and Pt went back to sleep. Pt refused simple mask for oxygen at 0150, states, "It's keeping me awake." I monitored Pt throughout the night for sleep apnea, and Pt continued with apnea breaths at times. No other c/o voiced of pain. Pt took sips of water for intake this shift. Will continue to monitor. Call light in reach. Bed locked and low. Bed alarm on.
--- NOTE | 2016-06-12 07:44 | NUR ---
V-tach Patient had 13 beat run of V-tach at this time. VSS. Patient asymptomatic. Patient c/o chest pain, similar to complaints yesterday and overnight. Rates pain 8/10, states pain is worse with drinking and taking pills. Pain does not radiate to jaw or shoulders. Will continue to monitor.
[2016-06-12 07:53] VITALS: BP 116/58
[2016-06-12] MEDS: MAGNESIUM OXIDE 400 MG TABLET PO SCH ×2 (08:48→20:32)
[2016-06-12] MEDS: POTASSIUM CHLORIDE 10 MEQ TABLET PO SCH ×3 (08:48→17:50)
[2016-06-12] MEDS: LOSARTAN/HCTZ 100/25 TABLET PO SCH (08:48)
[2016-06-12] MEDS: PANTOPRAZOLE 40mg INJECTION IV SCH ×2 (08:48→20:31)
[2016-06-12] MEDS: ONDANSETRON 4mg/2ml INJECTION IV PRN (08:57)
--- NOTE | 2016-06-12 10:30 | NUR ---
Notified Dr. Deutsch notified of patient's 13 beat run of V-tach this morning. No further orders given at this time. Will continue to monitor.
[2016-06-12] MEDS ORDERED: 1/2 NS 1,000 ML IV SCH (14:15)
--- NOTE | 2016-06-12 14:36 | PNPDOC ---
Subjective Date DATE: 06/12/16 TIME: 14:26 Subjective F/U: Gastroenteritis, Leukocytosis Feeling slightly better. Nausea decreasing, but still no oral drive/appetite. Notes discomfort with swallowing at times-even water can hurt. Passing flatus. Notes stool, but still loose. Breathing feeling well-not having SOA, cough, or congestion. No palpitations. Urinating well. Strength decreased - ambulates to bathroom, but feels that is about all he can handle. No f/c. Objective Vital Signs Vital signs Vital Signs Date Time Temp Pulse Resp B/P Pulse Ox O2 Delivery O2 Flow Rate FiO2 06/12/16 07:53 116/58 06/12/16 07:29 97.3 77 18 90 Room Air 06/11/16 23:51 2.00 Height (Feet): 5 Height (Inches): 6.00 Weight (Kilograms): 128.000 General General Appearance: Alert, Obese, Orientated x 3, Well Nourished, Well Developed, Cooperative, Looks Stated Age Eyes (Brief) Eyes: FOUND: EOMI, PERRL, NOT FOUND: scleral icterus ENMT (Brief) ENMT: FOUND: hearing intact, mucosa moist Neck (Brief) Neck: FOUND: midline, NOT FOUND: nuchal rigidity, spasm Respiratory (Brief) Respiratory: FOUND: equal bilaterally, NOT FOUND: clear all squires (Decreased bilaterally, no crackles or distress. ), rales, wheezes Cardiovascular (Brief) Cardiac: FOUND: pedal edema (+2), regular rate, regular rhythm Abdomen (Brief) Abdominal: FOUND: BS normo active x4, distended, other (Obese), soft, NOT FOUND : tender Extremities (Brief) Extremity : Side: Bilateral Extremity: leg Extremity Finding: FOUND: edema (+2) Musculoskeletal (Brief) Musculoskeletal: FOUND: extremities move equally, NOT FOUND: deformity, loss of motion, spasm, tenderness Integumentary (Brief) Integumentary: FOUND: dry, warm Neurologic (Brief) Neurological: FOUND: cranial 2-12 intact, motor (Intact ) Psychiatric (Brief) Psychiatric: FOUND: alert, attentive, normal affect, oriented Laboratory Laboratory Laboratory Tests 06/11/16 05:21 06/12/16 04:57 Laboratory Tests 06/11/16 05:21 06/11/16 17:20 06/12/16 04:57 Microbiology Microbiology Microbiology Date/Time Source Procedure Growth Status 06/10/16 18:11 Peripheral/Iv Start Blood Culture - Preliminary NO GROWTH AFTER 24 HOURS Resulted 06/10/16 18:11 Peripheral/Iv Start Blood Culture - Preliminary NO GROWTH AFTER 24 HOURS Resulted Assessment & Plan Problems: (1) Gastroenteritis Status: Acute (2) Leukocytosis Status: Acute (3) Melena Status: Acute (4) Hypernatremia Status: Resolved Assessment & Plan: POA (5) Hypokalemia Status: Resolved Assessment & Plan: POA (6) Hypoxia Status: Acute Assessment & Plan: POA (7) Dehydration Status: Resolved Assessment & Plan: POA (8) CAD (coronary artery disease) Status: Chronic Qualifiers: Coronary Disease-Associated Artery/Lesion type: [place] artery [place] vs. transplanted heart: [place] heart Associated angina: without angina Qualified Codes: I25.10 - Atherosclerotic heart disease of [place] coronary artery without angina pectoris (9) Hypertension Status: Chronic (10) Hypercholesteremia Status: Chronic (11) Obstructive sleep apnea Status: Chronic Assessment & Plan: Not able to tolerate CPAP (12) Osteoarthritis Status: Chronic Qualifiers: Osteoarthritis location: multiple joints Osteoarthritis type: primary Qualified Codes: M15.0 - Primary generalized (osteo)arthritis (13) Depression Status: Chronic Qualifiers: Depression Type: unspecified Qualified Codes: F32.9 - Major depressive disorder, single episode, unspecified (14) Morbid obesity with BMI of 45.0-49.9, adult Status: Chronic (15) Pain with swallowing Status: Chronic Plan/Intensity of Service As potassium with increase (some hemolysis) will change IVF to 1/2ns and decrease rate to 50cc/hr. Start Protonix due to reflux and melena. Discussed with Dr Evans about his pain with swallowing. Will hold on scope for now. Add Carafate 1 gram ac meal and hs for increased stomach and esophageal protection. Continue Protonix 40mg IV BID. Hold Lovenox due to melena. Continue Ancef. Continue nausea control. Will continue with clear liquids IS to help hypoxia - supplemental O2 as needed. PT/OT to seen in am due to his gen debility to help increase functional status. Will place consult with Dr Medina due to his episodes of non-sustained V-Tach. Recheck CBC in am due to leukocytosis and melena. Repeat BMP in am due to IVF use and medications. Case discussed with Dr Cornell. Time spent with pt care 35 minutes. Code Status Do Not Resuscitate Hospital Course Summary Disclaimer The hospital course summary below is not to be considered part of the above Progress Note. Hospital Course Summary 06/[address] patient outpatient observation status at [facility] under the care of Dr. Deutsch. Start IV fluids of half-normal saline with 20 mEq of potassium at 125 mL an hour for hydration. Will start metronidazole 500 mg IV q.8h. for empiric antimicrobial coverage of GI pathogens. Obtain stool sample for GI pathogens. Initiate Lovenox 40 mg subcutaneous daily for DVT prophylaxis. Patient's home medications, other than his Lasix, will be continued. Will hold on Lasix secondary to dehydration--present on admission. Have Zofran available to help with nausea. Discussed case with Dr. Medina. He did feel Ancef 2 grams IV every 8 hours would be prudent given his recent pacemaker placement and inability to keep oral minocycline down. Of note, his pacemaker site does look clean and dry. There is no redness or erythema. Recheck CBC and CMP in a.m. Patient will be DNR as per his request. Patient's care will be returned to Dr. Cornell at time of discharge from [facility]. 06/11 Rough day. Still very nauseated - requiring IV antiemetics. No appetite, not interested in eating. Less frequent stools, but still loss. Occult blood was positive. Noted chest pain - pt thought possible reflux in nature. Initial troponin Neg. Breathing about the same-slight congestion and still needing O2. No palpitations. Very tired and sleepy today. No f/c. WBC with continued elevation at 22.0. Sodium and potassium improved. With continued nausea requiring IV antiemetics and inability to maintain oral intake, coupled with persistent leukocytosis- will change to inpatient admission. Anticipate greater than 2 midnights of care required. Decrease IVF to 100cc/hr. Start Protonix due to reflux and melena. Hold Lovenox due to melena. Continue Ancef - may d/c metronidazole. Continue nausea control. IS to help hypoxia - supplemental O2 as needed. Recheck CBC in am due to leukocytosis and melena. Repeat BMP in am due to IVF use. 06/12 Feeling slightly better. Nausea decreasing, but still no oral drive/appetite. Notes discomfort with swallowing at times-even water can hurt. Passing flatus. Notes stool, but still loose. Breathing feeling well-not having SOA, cough, or congestion. No palpitations. Urinating well. Strength decreased - ambulates to bathroom, but feels that is about all he can handle. As potassium with increase (some hemolysis) will change IVF to 1/2ns and decrease rate to 50cc/hr. Start Protonix due to reflux and melena. Discussed with Dr Evans about his pain with swallowing. Will hold on scope for now. Add Carafate 1 gram ac meal and hs for increased stomach and esophageal protection. Continue Protonix 40mg IV BID. Hold Lovenox due to melena. Continue Ancef. Continue nausea control. Will continue with clear liquids IS to help hypoxia - supplemental O2 as needed. PT/OT to seen in am due to his gen debility to help increase functional status. Will place consult with Dr Medina due to his episodes of non-sustained V-Tach. Recheck CBC in am due to leukocytosis and melena. Repeat BMP in am due to IVF use and medications. SLADE DEUTSCH MD Jun 12, 2016 14:29
--- NOTE | 2016-06-12 14:54 | NUR ---
V-tach Patient had 7 beat run of V-tach at 1445. Patient was sleeping at this time. This RN went to patient's room to check on patient, who remained sleeping. Patient was woken up, denied chest pain or palpitations. Vital signs stable. Will continue to monitor.
--- NOTE | 2016-06-12 15:10 | NUR ---
Cardiology Consult Dr. Medina consulted for patient's multiple runs of V-tach today. Dr. Medina checked out for the weekend, [facility] on-call. This RN discussed patient's status with Nurse Practitioner with Dr. Carcamo, orders given for lab to check Mg and TSH levels and do pacemaker interrogation. Dr. Medina to see patient on Monday. Will continue to monitor.
[2016-06-12 15:31] VITALS: BP 118/74; PULSE 60; RESP 17; TEMP 98.5; O2SAT 92
--- NOTE | 2016-06-12 16:20 | NUR ---
Pacemaker Interrogation Pacemaker interrogation done with hospital's machine, faxed results placed on top of patient's chart. Call from [facility] community engagement representative at this time, who told this RN that the interrogation checked out fine and was wondering why the interrogation was done in the first place because patient's pacemaker has not recorded any events. Residence Counselor was informed of the three runs of V-tach that have been seen on our youth nutritional monitor. Residence Counselor said that patient's pacemaker is not set to record any v-tach that is <180 BPM, therefore runs of V-tach must have not met criteria to be recorded.
[2016-06-12 16:31] LABS: THYROID STIM HORMONE-TSH 5.25 MIU/L (0.47-4.68)
[2016-06-12] MEDS: SUCRALFATE 1 G TABLET PO SCH ×2 (17:50→20:32)
[2016-06-12] MEDS: LOVASTATIN 20 MG TABLET PO SCH (20:31)
[2016-06-12] MEDS: SERTRALINE 25 MG TABLET PO SCH (20:33)
[2016-06-13] VITALS (7 sets, daily range): BP systolic 103–130; BP diastolic 56–76; PULSE 61–70; RESP 14–20; TEMP 97.5–99.8; O2SAT 85–95
--- NOTE | 2016-06-13 01:12 | NUR ---
V-TACH: PT HAS HAD 2 EPISODES OF V-TACH (9 RUNS). CHECKED PT. PT STATES WITH THE 2ND V-TACH RUN THAT HE HAD SOME CHEST PAIN, BUT THAT IT WAS GONE NOW. TOOK PT'S VITALS (STABLE), SENT TIGER TEXT AND REC'D CALL BACK FROM DR. SANTIAGO. DOCTOR SAID THAT HE WILL LOOK AT PT'S CHARTS, BUT FOR NOW WE WILL CONTINUE TO MONITOR PT.
[2016-06-13] MEDS: CEFAZOLIN 2 G in NORMAL SALINE 100 ML IV SCH ×3 (01:30→17:36)
--- NOTE | 2016-06-13 05:11 | NUR ---
SHIFT SUMMARY: PT IS A&OX3 AND COOPERATIVE. SLEPT WELL AND WAS UP TO VOID ONCE DURING MY SHIFT (PINKISH TINGED URINE); PT DENIES PAIN, HAD A FEW RUNS OF V-TACH DURING THE NIGHT (SEE PREVIOUS NOTE). PT IS ON RA DURING THE DAY, BUT 2L 02 DURING THE NIGHT FOR SLEEP APNEA, UP WITH GATE BELT AND 1 ASSIST, Q8 VITALS, AND CLEAR LIQUID DIET. PT REFUSES TO WEAR SCD'S. CALL LIGHT WITHIN REACH, BED ALARM ON.
[2016-06-13 05:20] LABS: ANION GAP 10 MEQ/L (5-15); BUN/CREATININE RATIO 22 RATIO (6-26); CALCIUM 8.5 MG/DL (8.4-10.2); CHLORIDE 109 MEQ/L (98-107); CO2 - CARBON DIOXIDE 25 MEQ/L (22-30); CREATININE 1.1 MG/DL (0.8-1.5); GLOMERULAR FILTRATION RATE 66; GLUCOSE 99 MG/DL (75-110); POTASSIUM 4.7 MEQ/L (3.6-5); SODIUM 144 MEQ/L (134-144)
[2016-06-13 05:25] LABS: BASOPHILS % (AUTO) 0.1 % (0-2); EOSINOPHILS # (AUTO) 0.1 T/MM3 (0-0.5); EOSINOPHILS % (AUTO) 0.9 % (0-4); HCT - HEMATOCRIT 40.8 % (41-53); HGB - HEMOGLOBIN 12.9 GM/DL (13.5-17.5); IMMATURE GRANULOCYTE # (AUTO) 0.02 T/MM3 (0.00-0.03); IMMATURE GRANULOCYTE % (AUTO) 0.2 % (0.0-0.5); LYMPHOCYTES # (AUTO) 1.2 T/MM3 (1-4.8); LYMPHOCYTES % (AUTO) 9.8 % (23-45); MEAN CORPUSCULAR HGB 30.6 UUG (26-34); MEAN CORPUSCULAR HGB CONC(MCHC 31.6 GM/DL (31-37); MEAN CORPUSCULAR VOLUME 96.9 UM3 (80-100); MEAN PLATELET VOLUME 10.7 UM3 (9.4-12.4); MONOCYTES # (AUTO) 0.8 T/MM3 (0-0.8); MONOCYTES % (AUTO) 6.3 % (0-9.0); NEUTROPHILS #(AUTO)-ABSOLUTE 9.8 T/MM3 (1.8-7.7); NEUTROPHILS % (AUTO) 82.7 % (33-66); RED BLOOD COUNT 4.21 M/MM3 (4.50-5.90); WBC - WHITE BLOOD COUNT 11.9 T/MM3 (4.5-11.0)
[2016-06-13] MEDS: SUCRALFATE 1 G TABLET PO SCH (05:56)
[2016-06-13] MEDS: PANTOPRAZOLE 40mg INJECTION IV SCH ×2 (09:29→20:40)
[2016-06-13] MEDS: MAGNESIUM OXIDE 400 MG TABLET PO SCH ×2 (09:29→20:41)
[2016-06-13] MEDS: LOSARTAN/HCTZ 100/25 TABLET PO SCH (09:29)
[2016-06-13] MEDS: POTASSIUM CHLORIDE 10 MEQ TABLET PO SCH ×3 (09:30→17:36)
[2016-06-13] MEDS ORDERED: FLUCONAZOLE 150 MG TABLET PO ONE (12:15)
--- NOTE | 2016-06-13 12:25 | PNPDOC ---
Subjective Date DATE: 06/13/16 TIME: 12:17 Subjective F/U: Gastroenteritis, Leukocytosis Doing about the same. Less nausea, taking clears well other than pain with swallowing. Passing flatus and stools. Not feeling SOA or congested, but O2 sats will decrease at rest (and with sleeping). No chest pressure or pain. Urinating well. No f/c. Objective Vital Signs Vital signs Vital Signs Date Time Temp Pulse Resp B/P Pulse Ox O2 Delivery O2 Flow Rate FiO2 06/13/16 08:00 20 06/13/16 07:43 99.1 62 130/76 85 Room Air 06/13/16 00:15 2.00 Height (Feet): 5 Height (Inches): 6.00 Weight (Kilograms): 127.800 General General Appearance: Alert, Obese, Orientated x 3, Well Nourished, Well Developed, Cooperative, Looks Stated Age Eyes (Brief) Eyes: FOUND: EOMI, PERRL, NOT FOUND: scleral icterus ENMT (Brief) ENMT: FOUND: hearing intact, mucosa moist Neck (Brief) Neck: FOUND: midline, NOT FOUND: nuchal rigidity, spasm Respiratory (Brief) Respiratory: FOUND: equal bilaterally, NOT FOUND: clear all squires (Decreased, no distress ), rales, wheezes Cardiovascular (Brief) Cardiac: FOUND: regular rate, regular rhythm Abdomen (Brief) Abdominal: FOUND: BS normo active x4, soft, NOT FOUND: distended, tender Extremities (Brief) Extremity : Side: Bilateral Extremity: leg Extremity Finding: FOUND: edema (+2 ) Musculoskeletal (Brief) Musculoskeletal: FOUND: extremities move equally, NOT FOUND: deformity, loss of motion, spasm, tenderness Integumentary (Brief) Integumentary: FOUND: dry, warm Neurologic (Brief) Neurological: FOUND: cranial 2-12 intact, motor (Intact ) Psychiatric (Brief) Psychiatric: FOUND: alert, attentive, normal affect, oriented Laboratory Laboratory Laboratory Tests 06/12/16 04:57 06/13/16 04:41 Laboratory Tests 06/11/16 17:20 06/12/16 04:57 06/13/16 04:41 Microbiology Microbiology Microbiology Date/Time Source Procedure Growth Status 06/10/16 18:11 Peripheral/Iv Start Blood Culture - Preliminary NO GROWTH AFTER 48 HOURS Resulted 06/10/16 18:11 Peripheral/Iv Start Blood Culture - Preliminary NO GROWTH AFTER 48 HOURS Resulted Assessment & Plan Problems: (1) Gastroenteritis Status: Acute (2) Leukocytosis Status: Acute (3) Melena Status: Acute (4) Hypernatremia Status: Resolved Assessment & Plan: POA (5) Hypokalemia Status: Resolved Assessment & Plan: POA (6) Hypoxia Status: Acute Assessment & Plan: POA (7) Dehydration Status: Resolved Assessment & Plan: POA (8) CAD (coronary artery disease) Status: Chronic Qualifiers: Coronary Disease-Associated Artery/Lesion type: [place] artery [place] vs. transplanted heart: [place] heart Associated angina: without angina Qualified Codes: I25.10 - Atherosclerotic heart disease of [place] coronary artery without angina pectoris (9) Hypertension Status: Chronic (10) Hypercholesteremia Status: Chronic (11) Obstructive sleep apnea Status: Chronic Assessment & Plan: Not able to tolerate CPAP (12) Osteoarthritis Status: Chronic Qualifiers: Osteoarthritis location: multiple joints Osteoarthritis type: primary Qualified Codes: M15.0 - Primary generalized (osteo)arthritis (13) Depression Status: Chronic Qualifiers: Depression Type: unspecified Qualified Codes: F32.9 - Major depressive disorder, single episode, unspecified (14) Morbid obesity with BMI of 45.0-49.9, adult Status: Chronic (15) Pain with swallowing Status: Chronic Plan/Intensity of Service May d/c IVF as oral drive improving. Will restart home Lasix dose. Advance diet to full liquids. Give 1 time dose of Diflucan due to pain with swallowing. Continue Protonix and Carafate for esophageal and stomach protection. Suspect will need nocturnal O2 due to JIMI - pt not able to tolerate CPAP. Encourage activities - pt worked with therapy this morning and did well. Dr Medina to evaluate for non-sustained VTach. Continue Ancef. Continue nausea control. Encourage IS to help hypoxia - supplemental O2 as needed. Recheck CBC in am due to leukocytosis and melena. Repeat BMP in am due to medications use. Hope for discharge in near future. Case discussed with CM and nursing. Time spent with pt care 35 minutes. DVT Prophylaxis: SCD'S Code Status Do Not Resuscitate Hospital Course Summary Disclaimer The hospital course summary below is not to be considered part of the above Progress Note. Hospital Course Summary 06/[address] patient outpatient observation status at [facility] under the care of Dr. Deutsch. Start IV fluids of half-normal saline with 20 mEq of potassium at 125 mL an hour for hydration. Will start metronidazole 500 mg IV q.8h. for empiric antimicrobial coverage of GI pathogens. Obtain stool sample for GI pathogens. Initiate Lovenox 40 mg subcutaneous daily for DVT prophylaxis. Patient's home medications, other than his Lasix, will be continued. Will hold on Lasix secondary to dehydration--present on admission. Have Zofran available to help with nausea. Discussed case with Dr. Medina. He did feel Ancef 2 grams IV every 8 hours would be prudent given his recent pacemaker placement and inability to keep oral minocycline down. Of note, his pacemaker site does look clean and dry. There is no redness or erythema. Recheck CBC and CMP in a.m. Patient will be DNR as per his request. Patient's care will be returned to Dr. Cornell at time of discharge from [facility]. 06/11 Rough day. Still very nauseated - requiring IV antiemetics. No appetite, not interested in eating. Less frequent stools, but still loss. Occult blood was positive. Noted chest pain - pt thought possible reflux in nature. Initial troponin Neg. Breathing about the same-slight congestion and still needing O2. No palpitations. Very tired and sleepy today. No f/c. WBC with continued elevation at 22.0. Sodium and potassium improved. With continued nausea requiring IV antiemetics and inability to maintain oral intake, coupled with persistent leukocytosis- will change to inpatient admission. Anticipate greater than 2 midnights of care required. Decrease IVF to 100cc/hr. Start Protonix due to reflux and melena. Hold Lovenox due to melena. Continue Ancef - may d/c metronidazole. Continue nausea control. IS to help hypoxia - supplemental O2 as needed. Recheck CBC in am due to leukocytosis and melena. Repeat BMP in am due to IVF use. / Feeling slightly better. Nausea decreasing, but still no oral drive/appetite. Notes discomfort with swallowing at times-even water can hurt. Passing flatus. Notes stool, but still loose. Breathing feeling well-not having SOA, cough, or congestion. No palpitations. Urinating well. Strength decreased - ambulates to bathroom, but feels that is about all he can handle. As potassium with increase (some hemolysis) will change IVF to 1/2ns and decrease rate to 50cc/hr. Start Protonix due to reflux and melena. Discussed with Dr Evans about his pain with swallowing. Will hold on scope for now. Add Carafate 1 gram ac meal and hs for increased stomach and esophageal protection. Continue Protonix 40mg IV BID. Hold Lovenox due to melena. Continue Ancef. Continue nausea control. Will continue with clear liquids IS to help hypoxia - supplemental O2 as needed. PT/OT to seen in am due to his gen debility to help increase functional status. Will place consult with Dr Medina due to his episodes of non-sustained V-Tach. Recheck CBC in am due to leukocytosis and melena. Repeat BMP in am due to IVF use and medications. 4/3 Doing about the same. Less nausea, taking clears well other than pain with swallowing. Passing flatus and stools. Not feeling SOA or congested, but O2 sats will decrease at rest (and with sleeping). No chest pressure or pain. Urinating well. No f/c. Continue Protonix and Carafate for esophageal and stomach protection. Suspect will need nocturnal O2 due to JIMI - pt not able to tolerate CPAP. Encourage activities - pt worked with therapy this morning and did well. Dr Medina to evaluate for non-sustained VTach. Continue Ancef. Continue nausea control. Encourage IS to help hypoxia - supplemental O2 as needed. Recheck CBC in am due to leukocytosis and melena. Repeat BMP in am due to medications use. Hope for discharge in near future. SLADE DEUTSCH MD Jun 13, 2016 12:25
[2016-06-13] MEDS: FUROSEMIDE 80 MG TABLET PO SCH (14:04)
[2016-06-13] MEDS: SUCRALFATE 1 G/10ml ORAL SUSPENSION PO SCH ×2 (17:36→20:41)
--- NOTE | 2016-06-13 19:36 | NUR ---
shift status Up fruqently to void became more steady on his feet uses walker o2 is on at 4 liters per simple mask. tele is bbb .continue to observe,
[2016-06-13] MEDS: LOVASTATIN 20 MG TABLET PO SCH (20:41)
[2016-06-13] MEDS: SERTRALINE 25 MG TABLET PO SCH (20:41)
[2016-06-14] MEDS: CEFAZOLIN 2 G in NORMAL SALINE 100 ML IV SCH ×3 (01:04→17:49)
--- NOTE | 2016-06-14 03:12 | NUR ---
ABBI CALLED AT 3 AM: REC'D A CALL THIS MORNING AT 3:OO AM FROM PT'S DPOA (EX- TONY). SHE IS VERY CONCERNED ABOUT THE PT RETURNING HOME HE LIVES ALONE AND MAY NOT BE ABLE TO CARE FOR HIMSELF (DRESSING, COOKING). I SAID THAT I WOULD PASS THE INFORMATION ON TO DAY SHIFT NURSE.
--- NOTE | 2016-06-14 03:52 | NUR ---
SHIFT SUMMARY: PT IS A&OX3 AND COOPERATIVE. SLEPT WELL AND WAS UP TO VOID TWICE, DURING MY SHIFT, STANDING NEXT TO THE BED (I HELD BEDSIDE URINAL; PT DENIES PAIN, ON 4L OXYGEN (SIMPLE MASK) DURING THE DAY AND AT NIGHT, UP WITH WALKER AND STANDBY ASSIST, AND Q8 VITALS. PT WAS ON A CLEAR LIQUID DIET, BUT NOW INCREASED TO TOAST AND CRACKERS, WHICH PT REFUSED.. PT REFUSES TO WEAR SCD'S. PT HAS A NEWLY INSERTED PACEMAKER. CALL LIGHT WITHIN REACH, BED ALARM ON.
[2016-06-14 05:10] LABS: BASOPHILS % (AUTO) 0.1 % (0-2); EOSINOPHILS # (AUTO) 0.2 T/MM3 (0-0.5); EOSINOPHILS % (AUTO) 2.2 % (0-4); HCT - HEMATOCRIT 40.7 % (41-53); HGB - HEMOGLOBIN 12.8 GM/DL (13.5-17.5); IMMATURE GRANULOCYTE # (AUTO) 0.02 T/MM3 (0.00-0.03); IMMATURE GRANULOCYTE % (AUTO) 0.2 % (0.0-0.5); LYMPHOCYTES # (AUTO) 1.2 T/MM3 (1-4.8); LYMPHOCYTES % (AUTO) 11.2 % (23-45); MEAN CORPUSCULAR HGB 30.2 UUG (26-34); MEAN CORPUSCULAR HGB CONC(MCHC 31.4 GM/DL (31-37); MEAN PLATELET VOLUME 10.7 UM3 (9.4-12.4); MONOCYTES # (AUTO) 0.7 T/MM3 (0-0.8); NEUTROPHILS #(AUTO)-ABSOLUTE 8.9 T/MM3 (1.8-7.7); NEUTROPHILS % (AUTO) 80.3 % (33-66); RED BLOOD COUNT 4.24 M/MM3 (4.50-5.90); WBC - WHITE BLOOD COUNT 11.1 T/MM3 (4.5-11.0)
[2016-06-14 05:21] LABS: ANION GAP 9 MEQ/L (5-15); BUN/CREATININE RATIO 17 RATIO (6-26); CALCIUM 8.7 MG/DL (8.4-10.2); CHLORIDE 105 MEQ/L (98-107); CO2 - CARBON DIOXIDE 29 MEQ/L (22-30); CREATININE 1.1 MG/DL (0.8-1.5); GLOMERULAR FILTRATION RATE 66; GLUCOSE 98 MG/DL (75-110); POTASSIUM 4.4 MEQ/L (3.6-5); SODIUM 143 MEQ/L (134-144)
[2016-06-14] MEDS: SUCRALFATE 1 G/10ml ORAL SUSPENSION PO SCH ×4 (05:37→21:42)
[2016-06-14 07:25] VITALS: BP 116/64; PULSE 61; RESP 18; TEMP 97.2; O2SAT 100
[2016-06-14 08:00] VITALS: PULSE 62; RESP 18
[2016-06-14] MEDS: POTASSIUM CHLORIDE 10 MEQ TABLET PO SCH ×3 (09:04→17:49)
[2016-06-14] MEDS: PANTOPRAZOLE 40mg INJECTION IV SCH (09:04)
[2016-06-14] MEDS: LOSARTAN/HCTZ 100/25 TABLET PO SCH (09:05)
[2016-06-14] MEDS: FUROSEMIDE 80 MG TABLET PO SCH ×2 (09:05→14:50)
[2016-06-14] MEDS: MAGNESIUM OXIDE 400 MG TABLET PO SCH ×2 (09:05→21:42)
--- NOTE | 2016-06-14 09:56 | NUR ---
CM CM VISITED PT AND PT IS FEELING BETTER TODAY. PT IS AWARE THAT CM WILL HELP SET UP OXYGEN THROUGH THE PACE PROGRAM IF NEEDS AT TIME OF D/C. PT IS AWARE TO CONTACT CM IF NEEDS ARISE.
--- NOTE | 2016-06-14 11:19 | NUR ---
activity ambulated in the [place] with walker without o2 sats were 80 to 91% with pulse up to 112. co of a little soa towards the end of his walk, doesnt want to use o2 cannula perfers a mask will continue to walk more today.,
[2016-06-14 14:05] VITALS: PULSE 97
--- NOTE | 2016-06-14 14:33 | DI ---
INDICATION: ITS.REASON: Hypoxia PROCEDURE: CHEST 2-VIEWS UPRIGHT (PA \T\ LAT) Encounter: Initial COMPARISON: June 10, 2016 FINDINGS: Left cardiac pacemaker. Lungs are stable with mild elevation of the left hemidiaphragm. No consolidative pneumonia is seen. There is blunting of the right costophrenic angle seen on the frontal view, not confirmed on the lateral view raising suspicion for small pleural effusion. No pneumothorax. Heart size and mediastinal contours are stable. Impression: Possible small right effusion. No focal pneumonia or overt congestive failure. .
--- NOTE | 2016-06-14 15:15 | CONSPD ---
Consultation Info Date DATE: 06/13/16 noon late entry Date of Consultation: Jun 13, 2016 Attending Physician: IBETH Reason for Consultation: VT HPI - Adult Date DATE: 06/14/16 TIME: 14:44 General Date of Admission Date of Admission: Jun 11, 2016 at 16:29 History of Present Illness 71 yo wm well known to me whe just had a dual chamber PPM insertion last wk. He was readmitted on Monday due to diarrhea dehydraion and levated WBC. He was on PO Minocycline post PPM insertion. I stopped by on Monday and saw him. His incsion looked good w/o draiange erythma or undue tenderness. He had no shking chills ,althoufgh has had low grade subjective fever and in the hospital recoded 99. He s been getting IV Ancef , in cosnultation w Dr Brittany Johnson asked to see him formally for arrythmia. He is asymtpoatic w/o any palpiations angina or syncope. He gets SOA on exertion like [place] , but this is chronic. He is on O2 mask low flow, as cannulat doesnt stay in place. He had runs of NSVT. this is chronic for him an previously noted on prior holter monitro. He had only mild CAD on angiogram 3 yrs ago. savita diastolic dysfx and veous insufficiency with neg. noninvasive echo/doppler iamging 2 months ago. PPM interrogation showed NL Fx,pacing and sensing. CXR showed NL lead position w /o CHF or infiltrate. Past Medical History Past Medical History Metabolic: diabetes, hypercholesterolemia, hypertension Cardiac: CAD, echocardiogram GI: GERD Male: UTI Neurological: CVA Psychological: depression Surgical History General: appendix, colonoscopy, hernia, other, tonsils Cardiac: cardiac cath, pacemaker Current Medications Home Meds Active Scripts Minocycline HCl (Minocin) 100 Mg Capsule, 100 MG PO Q12H for 7 Days, #14 CAP Prov:PATRICK GALLEGOS MD 06/09/16 Oxycodone HCl/Acetaminophen (Percocet 5-325 mg Tablet) 5-325 Tablet, 1-2 TAB PO Q6H Y for PAIN, #14 TAB Prov:PATRICK GALLEGOS MD 06/09/16 Reported Medications Omeprazole Magnesium (Prilosec Otc) 20 Mg Tablet.dr, 1 TAB PO DAILY, TAB 06/11/16 Nitroglycerin (Nitrostat) 0.4 Mg Tablet, 0.4 MG SL Q5M Y for CHEST PAIN 06/10/16 Magnesium Oxide (Magnesium Oxide) 400 Mg Tablet, 400 MG PO BID 06/10/16 Furosemide (Furosemide) 80 Mg Tablet, 80 MG PO BID.. 12/25/13 Sertraline (Sertraline) 25 Mg Tablet, 25 MG PO HS 12/19/13 Potassium Chloride (Potassium Chloride) 10 Meq Tablet.sa, 20 MEQ PO TID 03/23/13 Lovastatin (Lovastatin) 20 Mg Tablet, 20 MG PO DAILY 03/23/13 Losartan/Hydrochlorothiazide (Losartan-Hctz 100-25 Mg Tab) 1 Each Tablet, 1 TAB PO DAILY 03/23/13 Allergies: Coded Allergies: morphine (Verified Allergy, Severe, heart stops, 06/08/16) aspirin (Verified Adverse Reaction, Unknown, nose bleed, 06/08/16) Family History FOUND: cancer, diabetes, hypertension, other Vaccines 2016 Yes Social History Substance Use Type: does not use Advance Directives: Yes DPOA for Healthcare Only Review of Systems Constitutional: DENIES: chills, dizziness, fatigue, syncope, weight gain, weight loss Eyes Vision: DENIES: double vision ENMT Balance: DENIES: falling to one side Cardiovascular dyspnea on exertion, see HPI, DENIES: chest pain, orthopnea Rhythm/Rate: DENIES: palpitations Pulmonary Respiratory: cough GI Upper Abdomen: DENIES: hematemesis Lower Abdomen: diarrhea, DENIES: blood in stool, melena General: DENIES: hematuria Neurological General: DENIES: blackouts, paralysis/paresis Psychiatric Psychiatric: DENIES: memory impairment Endocrine DENIES: heat/cold intolerance Physical Exam General General Nourishment: obese, apparent age, adult Vital Signs Vital Signs Date Time Temp Pulse Resp B/P Pulse Ox O2 Delivery O2 Flow Rate FiO2 06/14/16 14:05 97 06/14/16 08:00 18 06/14/16 07:25 97.2 116/64 100 4.00 06/13/16 23:57 Mask Height (Feet): 5 Height (Inches): 6.00 Telemetry Rhythm: Sinus Rhythm, Bundle Branch Block, V-Tachycardia (NS) Eyes Brief: FOUND: EOMI, PERRL, NOT FOUND: trauma ENMT Brief: FOUND: mucosa moist Neck Brief: NOT FOUND: JVD, carotid bruits, thyromegaly Respiratory Brief: FOUND: clear all squires Cardiovascular (brief) Cardiac Brief: FOUND: regular rate, regular rhythm Capillary Refill: <2 sec Abdomen (brief) Abdominal Brief: FOUND: BS normo active x4, soft, NOT FOUND: distended, tender Lymphatic (brief) Lymphatic Brief: NOT FOUND: adenopathy, lymphedema Musculoskeletal (brief) Musculoskeletal Brief: NOT FOUND: deformity Integumentary (brief) Integumentary Brief: FOUND: dry, pink, warm Integumentary Lesion Type: FOUND: scars (PPM new scar healing well w/o erythema draiange or undue tenderness no expressed discharge by squeezing .) Neurologic (brief) Neurological Brief: FOUND: cranial 2-12 intact, motor, sensory, NOT FOUND: facial droop, ptosis Neurologic RN Documented GCS Eye Opening: Verbal: Motor: Total: Psychiatric (brief) FOUND: alert, attentive, normal affect, oriented Psychiatric Psychiatric General: FOUND: affect, mood Attitude: FOUND: cooperative Laboratory Laboratory Tests Test 06/12/16 15:40 06/13/16 04:41 06/14/16 04:36 Magnesium Level 2.0MG/DL Thyroid Stimulating Hormone (TSH) 5.25MIU/L White Blood Count 11.9T/MM3 11.1T/MM3 Red Blood Count 4.21M/MM3 4.24M/MM3 Hemoglobin 12.9GM/DL 12.8GM/DL Hematocrit 40.8% 40.7% Mean Corpuscular Volume 96.9UM3 96.0UM3 Mean Corpuscular Hemoglobin 30.6UUG 30.2UUG Mean Corpuscular Hemoglobin Concent 31.6GM/DL 31.4GM/DL RDW Standard Deviation 54.8FL 52.8FL Platelet Count 157T/MM3 165T/MM3 Mean Platelet Volume 10.7UM3 10.7UM3 Immature Granulocyte % (Auto) 0.2% 0.2% Neutrophils (%) (Auto) 82.7% 80.3% Lymphocytes (%) (Auto) 9.8% 11.2% Monocytes (%) (Auto) 6.3% 6.0% Eosinophils (%) (Auto) 0.9% 2.2% Basophils (%) (Auto) 0.1% 0.1% Absolute Immature Granulocyte (auto 0.02T/MM3 0.02T/MM3 Absolute Neutrophils (auto) 9.8T/MM3 8.9T/MM3 Absolute Lymphocytes (auto) 1.2T/MM3 1.2T/MM3 Absolute Monocytes (auto) 0.8T/MM3 0.7T/MM3 Absolute Eosinophils (auto) 0.1T/MM3 0.2T/MM3 Absolute Basophils (auto) 0.0T/MM3 0.0T/MM3 Turbidity < 20 < 20 Sodium Level 144MEQ/L 143MEQ/L Potassium Level 4.7MEQ/L 4.4MEQ/L Chloride Level 109MEQ/L 105MEQ/L Carbon Dioxide Level 25MEQ/L 29MEQ/L Anion Gap 10MEQ/L 9MEQ/L Blood Urea Nitrogen 24.0MG/DL 19.0MG/DL Creatinine 1.1MG/DL 1.1MG/DL Glomerular Filtration Rate Calc 66 66 BUN/Creatinine Ratio 22RATIO 17RATIO Glucose Level 99MG/DL 98MG/DL Calculated Osmolality 281MOSM/KG 277MOSM/KG Calcium Level 8.5MG/DL 8.7MG/DL Icterus Index < 2 < 2 Chemistry Specimen Hemolysis < 15 < 15 Impression/Recommendation Recommendation NSVT chronic and asymptomatic DCHF chronic and compensated Bradycardia s/p recent PPM insertion ,NL Fx on interrogation, no evidence of PPM infection and no bacteremia leukocytosis improved. BB may need future stress nuc scan. as dw you , IV Ancef to switch to PO Keflex at the time of DC for a total of 7 days. PATRICK GALLEGOS MD Jun 14, 2016 14:56
[2016-06-14 15:42] VITALS: BP 131/76; PULSE 7; RESP 20; TEMP 97.1; O2SAT 100
--- NOTE | 2016-06-14 16:15 | PNPDOC ---
Subjective Date DATE: 06/14/16 TIME: 15:15 Subjective got up and walked few times , little SOA at the end no angina or palpiations. denies dizziness. Objective Vital Signs Vital signs Vital Signs 06/14/16 06/14/16 06/14/16 07:25 08:00 14:05 Temp 97.2 Pulse 61 62 97 Resp 18 18 B/P 116/64 Pulse Ox 100 O2 Flow Rate 4.00 Telemetry Rhythm: Sinus Rhythm, Bundle Branch Block, V-Tachycardia (NS), Apaced Height (Feet): 5 Height (Inches): 6.00 Weight (Kilograms): 126.900 General Alert, Obese, Orientated x 3, No Acute Distress Eyes (Brief) EOMI, PERRL, NOT FOUND: trauma ENMT (Brief) mucosa moist Neck (Brief) NOT FOUND: JVD Respiratory (Brief) clear all squires, equal bilaterally Cardiovascular (Brief) regular rate, regular rhythm Capillary Refill: <2 sec Abdomen (Brief) BS normo active x4, soft, NOT FOUND: distended, tender Extremities (Brief) Extremity : Extremity Finding: edema, NOT FOUND: clubbing, cyanosis Lymphatic (Brief) NOT FOUND: adenopathy Musculoskeletal (Brief) NOT FOUND: deformity Integumentary (Brief) pink, warm Neurologic (Brief) FOUND: cranial 2-12 intact, motor, sensory, NOT FOUND: facial droop, ptosis Psychiatric (Brief) alert, attentive, normal affect, oriented Laboratory Laboratory Laboratory Tests 06/14/16 04:36 Laboratory Tests 06/14/16 04:36 Assessment & Plan Plan/Intensity of Service NSVT s/p PPM insertion DCHF venous insufficiency hypoxemia mild CAD ,nonocclsuive DM2 leukocytosis BB wasn't restarted , will restart for VT cut ARB/HCTZ in 1/2 due to boredeline low BP. sign off . please call me with CV concerns. f/u w me as previously scheduled PATRICK GALLEGOS MD Jun 14, 2016 15:21
[2016-06-14] MEDS ORDERED: PANTOPRAZOLE 40 MG TABLET PO SCH (17:00)
--- NOTE | 2016-06-14 18:26 | NUR ---
shift status Has been up in chair and walked in [place]. uses o2 occasionally refused to eat any supper appeitie isnt to good yet .no loose stools this shift.more alert and active today.
--- NOTE | 2016-06-14 18:42 | PNPDOC ---
Subjective Date DATE: 06/14/16 TIME: 18:31 Subjective F/U: Gastroenteritis, Leukocytosis Doing better today. Has been up 3 times walking with therapy. Breathing feeling well-not feeling SOA or congested. No pain with breathing or cough. Does need O2 with ambulation - 2L (but does not like to use NC, so needing 4-5L with mask) . No chest pressure or pain. Bowels improving. Noting much less discomfort with swallowing. Objective Vital Signs Vital signs Vital Signs Date Time Temp Pulse Resp B/P Pulse Ox O2 Delivery O2 Flow Rate FiO2 06/14/16 15:42 97.1 7 20 131/76 100 Mask 5.00 Telemetry Rhythm: Sinus Rhythm, Bundle Branch Block, V-Tachycardia (NS), Apaced Height (Feet): 5 Height (Inches): 6.00 Weight (Kilograms): 126.900 General General Appearance: Alert, Obese, Orientated x 3, Well Nourished, Well Developed, Cooperative, Other (Looking more energetic today-less tired ), Looks Stated Age Eyes (Brief) Eyes: FOUND: EOMI, PERRL, NOT FOUND: scleral icterus ENMT (Brief) ENMT: FOUND: hearing intact, mucosa moist Neck (Brief) Neck: FOUND: midline, NOT FOUND: nuchal rigidity, spasm Respiratory (Brief) Respiratory: FOUND: clear all squires (decreased breath sounds ), equal bilaterally, NOT FOUND: rales, wheezes Cardiovascular (Brief) Cardiac: FOUND: pedal edema (+1), regular rate, regular rhythm Abdomen (Brief) Abdominal: FOUND: BS normo active x4, soft, NOT FOUND: distended, tender Extremities (Brief) Extremity : Side: Bilateral Extremity: leg Extremity Finding: FOUND: edema (+1 ) Musculoskeletal (Brief) Musculoskeletal: FOUND: extremities move equally, NOT FOUND: deformity, loss of motion, spasm, tenderness Integumentary (Brief) Integumentary: FOUND: dry, warm Neurologic (Brief) Neurological: FOUND: cranial 2-12 intact, motor (Intact ) Psychiatric (Brief) Psychiatric: FOUND: alert, attentive, normal affect, oriented Laboratory Laboratory Laboratory Tests 06/13/16 04:41 06/14/16 04:36 Laboratory Tests 06/13/16 04:41 06/14/16 04:36 Assessment & Plan Problems: (1) Gastroenteritis Status: Acute (2) Leukocytosis Status: Acute (3) Melena Status: Acute (4) Hypernatremia Status: Resolved Assessment & Plan: POA (5) Hypokalemia Status: Resolved Assessment & Plan: POA (6) Hypoxia Status: Acute Assessment & Plan: POA (7) Dehydration Status: Resolved Assessment & Plan: POA (8) CAD (coronary artery disease) Status: Chronic Qualifiers: Coronary Disease-Associated Artery/Lesion type: [place] artery [place] vs. transplanted heart: [place] heart Associated angina: without angina Qualified Codes: I25.10 - Atherosclerotic heart disease of [place] coronary artery without angina pectoris (9) Hypertension Status: Chronic (10) Hypercholesteremia Status: Chronic (11) Obstructive sleep apnea Status: Chronic Assessment & Plan: Not able to tolerate CPAP (12) Osteoarthritis Status: Chronic Qualifiers: Osteoarthritis location: multiple joints Osteoarthritis type: primary Qualified Codes: M15.0 - Primary generalized (osteo)arthritis (13) Depression Status: Chronic Qualifiers: Depression Type: unspecified Qualified Codes: F32.9 - Major depressive disorder, single episode, unspecified (14) Morbid obesity with BMI of 45.0-49.9, adult Status: Chronic (15) Pain with swallowing Status: Chronic Plan/Intensity of Service Continue Protonix and Carafate for esophageal and stomach protection. With swallowing much improved, will decrease Protonix to once a day. Dr Medina decreased his ARB in half, and started Metoprolol 25mg BID with meal. Does not feel further evaluation of non-sustained Vtach needed. Encourage activities - Continue ambulation in [place]. Continue Ancef - in outpatient setting, will change to cephalexin for total course of 7 days. Encourage IS to help hypoxia. Recheck CBC in am due to leukocytosis and anemia. Repeat BMP in am due to medications use. Likely discharge to home tomorrow. Case discussed with CM, Dr Cornell and Dr Medina. Time spent with pt care 35 minutes. Code Status Do Not Resuscitate Hospital Course Summary Disclaimer The hospital course summary below is not to be considered part of the above Progress Note. Hospital Course Summary 06/[address] patient outpatient observation status at [facility] under the care of Dr. Deutsch. Start IV fluids of half-normal saline with 20 mEq of potassium at 125 mL an hour for hydration. Will start metronidazole 500 mg IV q.8h. for empiric antimicrobial coverage of GI pathogens. Obtain stool sample for GI pathogens. Initiate Lovenox 40 mg subcutaneous daily for DVT prophylaxis. Patient's home medications, other than his Lasix, will be continued. Will hold on Lasix secondary to dehydration--present on admission. Have Zofran available to help with nausea. Discussed case with Dr. Medina. He did feel Ancef 2 grams IV every 8 hours would be prudent given his recent pacemaker placement and inability to keep oral minocycline down. Of note, his pacemaker site does look clean and dry. There is no redness or erythema. Recheck CBC and CMP in a.m. Patient will be DNR as per his request. Patient's care will be returned to Dr. Cornell at time of discharge from [facility]. 06/11 Rough day. Still very nauseated - requiring IV antiemetics. No appetite, not interested in eating. Less frequent stools, but still loss. Occult blood was positive. Noted chest pain - pt thought possible reflux in nature. Initial troponin Neg. Breathing about the same-slight congestion and still needing O2. No palpitations. Very tired and sleepy today. No f/c. WBC with continued elevation at 22.0. Sodium and potassium improved. With continued nausea requiring IV antiemetics and inability to maintain oral intake, coupled with persistent leukocytosis- will change to inpatient admission. Anticipate greater than 2 midnights of care required. Decrease IVF to 100cc/hr. Start Protonix due to reflux and melena. Hold Lovenox due to melena. Continue Ancef - may d/c metronidazole. Continue nausea control. IS to help hypoxia - supplemental O2 as needed. Recheck CBC in am due to leukocytosis and melena. Repeat BMP in am due to IVF use. / Feeling slightly better. Nausea decreasing, but still no oral drive/appetite. Notes discomfort with swallowing at times-even water can hurt. Passing flatus. Notes stool, but still loose. Breathing feeling well-not having SOA, cough, or congestion. No palpitations. Urinating well. Strength decreased - ambulates to bathroom, but feels that is about all he can handle. As potassium with increase (some hemolysis) will change IVF to 1/2ns and decrease rate to 50cc/hr. Start Protonix due to reflux and melena. Discussed with Dr Casmir about his pain with swallowing. Will hold on scope for now. Add Carafate 1 gram ac meal and hs for increased stomach and esophageal protection. Continue Protonix 40mg IV BID. Hold Lovenox due to melena. Continue Ancef. Continue nausea control. Will continue with clear liquids IS to help hypoxia - supplemental O2 as needed. PT/OT to seen in am due to his gen debility to help increase functional status. Will place consult with Dr Medina due to his episodes of non-sustained V-Tach. Recheck CBC in am due to leukocytosis and melena. Repeat BMP in am due to IVF use and medications. 4/3 Doing about the same. Less nausea, taking clears well other than pain with swallowing. Passing flatus and stools. Not feeling SOA or congested, but O2 sats will decrease at rest (and with sleeping). No chest pressure or pain. Urinating well. No f/c. Continue Protonix and Carafate for esophageal and stomach protection. Suspect will need nocturnal O2 due to JIMI - pt not able to tolerate CPAP. Encourage activities - pt worked with therapy this morning and did well. Dr Medina to evaluate for non-sustained VTach. Continue Ancef. Continue nausea control. Encourage IS to help hypoxia - supplemental O2 as needed. Recheck CBC in am due to leukocytosis and melena. Repeat BMP in am due to medications use. Hope for discharge in near future. 4/4 Doing better today. Has been up 3 times walking with therapy. Breathing feeling well-not feeling SOA or congested. No pain with breathing or cough. Does need O2 with ambulation - 2L (but does not like to use NC, so needing 4-5L with mask) . No chest pressure or pain. Bowels improving. Noting much less discomfort with swallowing. Continue Protonix and Carafate for esophageal and stomach protection. With swallowing much improved, will decrease Protonix to once a day. Dr Medina decreased his ARB in half, and started Metoprolol 25mg BID with meal. Does not feel further evaluation of non-sustained Vtach needed. Encourage activities - Continue ambulation in [place]. Continue Ancef - in outpatient setting, will change to cephalexin for total course of 7 days. Encourage IS to help hypoxia. Recheck CBC in am due to leukocytosis and anemia. Repeat BMP in am due to medications use. Likely discharge to home tomorrow. CHRISTIANO,JUNE D MD Jun 14, 2016 18:35
[2016-06-14 20:00] VITALS: PULSE 71; RESP 20
[2016-06-14] MEDS: LOVASTATIN 20 MG TABLET PO SCH (21:42)
[2016-06-14] MEDS: SERTRALINE 25 MG TABLET PO SCH (21:42)
[2016-06-14 23:15] VITALS: BP 111/65; PULSE 61; RESP 22; TEMP 98.1; O2SAT 100
[2016-06-15] MEDS: CEFAZOLIN 2 G in NORMAL SALINE 100 ML IV SCH ×2 (00:39→08:54)
--- NOTE | 2016-06-15 04:57 | NUR ---
SHIFT SUMMARY PT ALERT AND ORIENTED X 3. CALLS FOR STAND BY ASSIST TO WALK INTO THE BATHROOM. PT'S GAIT IS STEADY WITH FWW, GAIT BELT AND SBA. HE IS ABLE TO STAND UP FROM THE BED WITHOUT PULLING OR PUSHING ON THE BED RAIL. CONTINUES TO WEAR 02 MASK ON 4L, PER HIS REQUEST. HAS SOME DIFFICULT WITH SWALLOWING, NOTED MORE WITH LARGER PILLS. OFFER TO GIVE WITH PUDDING OR TO CRUSH MEDICATION. PT REFUSED AT THIS TIME. CALL LIGHT WITHIN REACH. BED ALARM ON.
[2016-06-15 05:55] LABS: BASOPHILS % (AUTO) 0.2 % (0-2); EOSINOPHILS # (AUTO) 0.2 T/MM3 (0-0.5); EOSINOPHILS % (AUTO) 2.1 % (0-4); HCT - HEMATOCRIT 43.9 % (41-53); IMMATURE GRANULOCYTE # (AUTO) 0.03 T/MM3 (0.00-0.03); IMMATURE GRANULOCYTE % (AUTO) 0.3 % (0.0-0.5); LYMPHOCYTES # (AUTO) 1.5 T/MM3 (1-4.8); LYMPHOCYTES % (AUTO) 13.4 % (23-45); MEAN CORPUSCULAR HGB CONC(MCHC 31.9 GM/DL (31-37); MEAN CORPUSCULAR VOLUME 94.2 UM3 (80-100); MEAN PLATELET VOLUME 10.6 UM3 (9.4-12.4); MONOCYTES # (AUTO) 0.7 T/MM3 (0-0.8); MONOCYTES % (AUTO) 6.4 % (0-9.0); NEUTROPHILS #(AUTO)-ABSOLUTE 8.6 T/MM3 (1.8-7.7); NEUTROPHILS % (AUTO) 77.6 % (33-66); RED BLOOD COUNT 4.66 M/MM3 (4.50-5.90)
[2016-06-15 06:05] LABS: ANION GAP 9 MEQ/L (5-15); BUN/CREATININE RATIO 17 RATIO (6-26); CALCIUM 8.9 MG/DL (8.4-10.2); CHLORIDE 99 MEQ/L (98-107); CO2 - CARBON DIOXIDE 33 MEQ/L (22-30); GLOMERULAR FILTRATION RATE 74; GLUCOSE 105 MG/DL (75-110); POTASSIUM 4.4 MEQ/L (3.6-5); SODIUM 141 MEQ/L (134-144)
[2016-06-15] MEDS ORDERED: PANTOPRAZOLE 40 MG TABLET PO SCH (06:30)
[2016-06-15] MEDS: SUCRALFATE 1 G/10ml ORAL SUSPENSION PO SCH ×2 (06:43→12:07)
[2016-06-15 07:31] VITALS: BP 127/73; PULSE 61; RESP 18; TEMP 98.3; O2SAT 100
[2016-06-15 08:00] VITALS: PULSE 62; PULSE 64; RESP 18
[2016-06-15] MEDS: POTASSIUM CHLORIDE 10 MEQ TABLET PO SCH ×2 (08:52→12:08)
[2016-06-15] MEDS: MAGNESIUM OXIDE 400 MG TABLET PO SCH (08:53)
[2016-06-15] MEDS: FUROSEMIDE 80 MG TABLET PO SCH (08:53)
[2016-06-15] MEDS ORDERED: LOSARTAN/HCTZ 100/25 TABLET PO SCH (09:00)
--- NOTE | 2016-06-15 09:39 | PNPDOC ---
Subjective Date DATE: 06/15/16 TIME: 09:26 Subjective F/U: Gastroenteritis, Leukocytosis Doing well this morning. Breathing feels well-not congested or coughing. No chest pain. Taking po in well, keeping medications down. No f/c. Ambulating well. Objective Vital Signs Vital signs Vital Signs Date Time Temp Pulse Resp B/P Pulse Ox O2 Delivery O2 Flow Rate FiO2 06/15/16 07:31 98.3 61 18 127/73 100 Nasal Cannula 4.00 Telemetry Rhythm: Sinus Rhythm, Bundle Branch Block, V-Tachycardia (NS), Apaced Height (Feet): 5 Height (Inches): 6.00 Weight (Kilograms): 123.100 General General Appearance: Alert, Obese, Orientated x 3, Well Nourished, Well Developed, Cooperative, No Acute Distress, Looks Stated Age Eyes (Brief) Eyes: FOUND: EOMI, PERRL, NOT FOUND: scleral icterus ENMT (Brief) ENMT: FOUND: hearing intact, mucosa moist Neck (Brief) Neck: FOUND: midline, NOT FOUND: nuchal rigidity, spasm Respiratory (Brief) Respiratory: FOUND: equal bilaterally, NOT FOUND: clear all squires (Decreased, no crackles or distress ), rales, wheezes Cardiovascular (Brief) Cardiac: FOUND: pedal edema (+2 ), regular rate, regular rhythm Abdomen (Brief) Abdominal: FOUND: BS normo active x4, soft, NOT FOUND: distended, tender Extremities (Brief) Extremity : Side: Bilateral Extremity: leg Extremity Finding: FOUND: edema (+2 ) Musculoskeletal (Brief) Musculoskeletal: FOUND: extremities move equally, NOT FOUND: deformity, loss of motion, spasm, tenderness Integumentary (Brief) Integumentary: FOUND: dry, warm Neurologic (Brief) Neurological: FOUND: cranial 2-12 intact, motor (Intact ) Psychiatric (Brief) Psychiatric: FOUND: alert, attentive, normal affect, oriented Laboratory Laboratory Laboratory Tests 06/14/16 04:36 06/15/16 05:22 Laboratory Tests 06/14/16 04:36 06/15/16 05:22 Assessment & Plan Problems: (1) Gastroenteritis Status: Acute (2) Leukocytosis Status: Acute (3) Melena Status: Acute (4) Hypernatremia Status: Resolved Assessment & Plan: POA (5) Hypokalemia Status: Resolved Assessment & Plan: POA (6) Hypoxia Status: Acute Assessment & Plan: POA (7) Dehydration Status: Resolved Assessment & Plan: POA (8) CAD (coronary artery disease) Status: Chronic Qualifiers: Coronary Disease-Associated Artery/Lesion type: [place] artery [place] vs. transplanted heart: [place] heart Associated angina: without angina Qualified Codes: I25.10 - Atherosclerotic heart disease of [place] coronary artery without angina pectoris (9) Hypertension Status: Chronic (10) Hypercholesteremia Status: Chronic (11) Obstructive sleep apnea Status: Chronic Assessment & Plan: Not able to tolerate CPAP (12) Osteoarthritis Status: Chronic Qualifiers: Osteoarthritis location: multiple joints Osteoarthritis type: primary Qualified Codes: M15.0 - Primary generalized (osteo)arthritis (13) Depression Status: Chronic Qualifiers: Depression Type: unspecified Qualified Codes: F32.9 - Major depressive disorder, single episode, unspecified (14) Morbid obesity with BMI of 45.0-49.9, adult Status: Chronic (15) Pain with swallowing Status: Chronic Plan/Intensity of Service Will d/c to home. Continue home omeprazole - add Carafate ac meal and hs for 2 weeks. Cephalexin 500mg po TID for 6 doses - may stop Minocycline. Home O2 arrangements being made. Encourage IS use. Pt to follow with Dr Cornell for medical care within 48 hours. F/U with Dr Medina as scheduled. See orders for details. Case discussed with CM and Dr Cornell. Time spent with patient and discharge 35 minutes. C DVT Prophylaxis: other (Ambulation) Code Status Do Not Resuscitate Hospital Course Summary Disclaimer The hospital course summary below is not to be considered part of the above Progress Note. Hospital Course Summary 06/[address] patient outpatient observation status at [facility] under the care of Dr. Deutsch. Start IV fluids of half-normal saline with 20 mEq of potassium at 125 mL an hour for hydration. Will start metronidazole 500 mg IV q.8h. for empiric antimicrobial coverage of GI pathogens. Obtain stool sample for GI pathogens. Initiate Lovenox 40 mg subcutaneous daily for DVT prophylaxis. Patient's home medications, other than his Lasix, will be continued. Will hold on Lasix secondary to dehydration--present on admission. Have Zofran available to help with nausea. Discussed case with Dr. Medina. He did feel Ancef 2 grams IV every 8 hours would be prudent given his recent pacemaker placement and inability to keep oral minocycline down. Of note, his pacemaker site does look clean and dry. There is no redness or erythema. Recheck CBC and CMP in a.m. Patient will be DNR as per his request. Patient's care will be returned to Dr. Cornell at time of discharge from [facility]. 06/11 Rough day. Still very nauseated - requiring IV antiemetics. No appetite, not interested in eating. Less frequent stools, but still loss. Occult blood was positive. Noted chest pain - pt thought possible reflux in nature. Initial troponin Neg. Breathing about the same-slight congestion and still needing O2. No palpitations. Very tired and sleepy today. No f/c. WBC with continued elevation at 22.0. Sodium and potassium improved. With continued nausea requiring IV antiemetics and inability to maintain oral intake, coupled with persistent leukocytosis- will change to inpatient admission. Anticipate greater than 2 midnights of care required. Decrease IVF to 100cc/hr. Start Protonix due to reflux and melena. Hold Lovenox due to melena. Continue Ancef - july d/c metronidazole. Continue nausea control. IS to help hypoxia - supplemental O2 as needed. Recheck CBC in am due to leukocytosis and melena. Repeat BMP in am due to IVF use. 06/12 Feeling slightly better. Nausea decreasing, but still no oral drive/appetite. Notes discomfort with swallowing at times-even water can hurt. Passing flatus. Notes stool, but still loose. Breathing feeling well-not having SOA, cough, or congestion. No palpitations. Urinating well. Strength decreased - ambulates to bathroom, but feels that is about all he can handle. As potassium with increase (some hemolysis) will change IVF to 1/2ns and decrease rate to 50cc/hr. Start Protonix due to reflux and melena. Discussed with Dr Evans about his pain with swallowing. Will hold on scope for now. Add Carafate 1 gram ac meal and hs for increased stomach and esophageal protection. Continue Protonix 40mg IV BID. Hold Lovenox due to melena. Continue Ancef. Continue nausea control. Will continue with clear liquids IS to help hypoxia - supplemental O2 as needed. PT/OT to seen in am due to his gen debility to help increase functional status. Will place consult with Dr Medina due to his episodes of non-sustained V-Tach. Recheck CBC in am due to leukocytosis and melena. Repeat BMP in am due to IVF use and medications. 4/3 Doing about the same. Less nausea, taking clears well other than pain with swallowing. Passing flatus and stools. Not feeling SOA or congested, but O2 sats will decrease at rest (and with sleeping). No chest pressure or pain. Urinating well. No f/c. Continue Protonix and Carafate for esophageal and stomach protection. Suspect will need nocturnal O2 due to JIMI - pt not able to tolerate CPAP. Encourage activities - pt worked with therapy this morning and did well. Dr Medina to evaluate for non-sustained VTach. Continue Ancef. Continue nausea control. Encourage IS to help hypoxia - supplemental O2 as needed. Recheck CBC in am due to leukocytosis and melena. Repeat BMP in am due to medications use. Hope for discharge in near future. 4/4 Doing better today. Has been up 3 times walking with therapy. Breathing feeling well-not feeling SOA or congested. No pain with breathing or cough. Does need O2 with ambulation - 2L (but does not like to use NC, so needing 4-5L with mask) . No chest pressure or pain. Bowels improving. Noting much less discomfort with swallowing. Continue Protonix and Carafate for esophageal and stomach protection. With swallowing much improved, will decrease Protonix to once a day. Dr Medina decreased his ARB in half, and started Metoprolol 25mg BID with meal. Does not feel further evaluation of non-sustained Vtach needed. Encourage activities - Continue ambulation in [place]. Continue Ancef - in outpatient setting, will change to cephalexin for total course of 7 days. Encourage IS to help hypoxia. Recheck CBC in am due to leukocytosis and anemia. Repeat BMP in am due to medications use. Likely discharge to home tomorrow. 4/5 Doing well this morning. Breathing feels well-not congested or coughing. No chest pain. Taking po in well, keeping medications down. No f/c. Ambulating well. Will d/c to home. Continue home omeprazole - add Carafate ac meal and hs for 2 weeks. Cephalexin 500mg po TID for 6 doses - may stop Minocycline. Home O2 arrangements being made. Encourage IS use. Pt to follow with Dr Cornell for medical care within 48 hours. F/U with Dr Medina as scheduled. See orders for details. SLADE DEUTSCH MD Jun 15, 2016 09:39
[2016-06-15] MEDS ORDERED: METO25TA6 PO (09:42)
[2016-06-15] MEDS ORDERED: LOSA1TAB96 PO (09:42)
[2016-06-15] MEDS ORDERED: SUCR1TAB PO (09:42)
[2016-06-15] MEDS ORDERED: CEPH500T PO (09:49)
--- NOTE | 2016-06-15 10:58 | NUR ---
KARLA ALVARADO WILL D/C PT HOME TODAY. PT IS PART OF THE [facility]. KARLA SPOKE WITH CHRISTOPHER FROM [facility] AND THEY WILL PROVIDE TRANSPORT TODAY AT 12:30PM. PT WILL D/C ON OXYGEN [facility] WILL PROVIDE WHEN THEY PICK PT UP. KARLA HAS FAXED OXYGEN EVAL TO CHRISTOPHER. PT IS AWARE TO CONTACT KARLA IF NEEDS ARISE.
--- NOTE | 2016-06-15 11:24 | NUR ---
CM CM FAXED ORDERS TO [phone] PER CHRISTOPHER AGRONOMY PROFESSOR FROM [facility]. CM PROVIDE [facility] NURSE WITH CONTACT FOR [facility]NO NURSE AT [facility] TO GIVE REPORT-PT IS RETURNING HOME. CHRISTOPHER AWARE TO CONTACT CM IF NEEDS ARISE. PT EX- DESTINY-ABBI IS AWARE OF PT D/C PLAN FOR TODAY PER CHRISTOPHER.
--- NOTE | 2016-06-15 12:58 | NUR ---
DISMISSAL pt has been dismissed to home. all dismissal paperwork has been reviewed with the pt and a copy was sent home. prescriptions were sent with the pt. IV was DC'd. all personal belongings were sent with the pt.
--- NOTE | 2016-06-16 08:00 | DSF ---
Initiation of observation 06/10/2016. Date of admission 06/11/2016. Date of discharge 06/15/2016. ADMITTING DIAGNOSIS Gastroenteritis. DISCHARGE DIAGNOSIS Gastroenteritis. ASSOCIATED CONDITIONS AND COMPLICATIONS Leukocytosis - resolved. Melena - resolved; no evidence of significant GI blood loss. Hypernatremia (present on admission) - resolved. Hypokalemia (present on admission). Hypoxia. Dehydration - resolved. Coronary artery disease. Hypertension. Hypercholesterolemia. Obstructive sleep apnea. Osteoarthritis. Depression. Pain with swallowing. GERD. Morbid obesity with BMI 43.8. PROCEDURES None. CONSULTS Dr. Medina - Cardiology HISTORY OF PRESENT ILLNESS Mr. Bolanos is a 71-year-old gentleman who presents to [facility] Emergency Room secondary to diarrhea and vomiting. He was in observation status at [facility] from 06/08/2016 through 06/09/2016 due to pacemaker placement. During that time, he was feeling fairly well. His pacemaker was placed without untoward problems. Since then he feels that he has not been noticing anything untoward with his heart. While hospitalized his white count and hemoglobin were normal. He was also afebrile. He was discharged to home in stable condition. He did report feeling some slight nausea and a little bit of rumbling in his stomach but nothing pronounced. Unfortunately, when he got home later that evening he started having significant episodes of loose stool. It is uncertain how many he had, as the quantity was so high. He is quite nauseated and not able to eat or drink well. This morning symptoms persisted. He is more nauseated and had an episode of emesis when he tried to take his medications. He notes diffuse abdominal pain. He does note some chills. He has been feeling more weak and run down since his symptoms onset. He is not noticing shortness of breath or congestion. At times he will note a little bit of cough but no sputum. He denies sinus pressure but occasionally will have drainage. He presented to the emergency room where he was evaluated. Blood pressure is in the 150s to 170s. He is not tachycardic. He was hypoxic with 88% room air saturation. Additionally, his white count was elevated at 21.4 with 93% neutrophils and 4% bands. Yesterday his white count was normal. Hemoglobin also is increased to 17 while yesterday it was 14.7. Creatinine fortunately is stable at 0.9, but his blood urea nitrogen is increased to 23, sodium increased to 147, with potassium decreased at 3.5. Despite IV fluids and antiemetics in the emergency room, his symptoms persisted. In light of his leukocytosis and continued nausea, Dr. Deutsch was notified and patient was subsequently placed in outpatient observation status. It is thought that his length of stay will be less than two midnights. For complete details of the H&P, refer to that document. LABORATORY White blood count is 21.4, with 93% neutrophils, and 4% bands. Hemoglobin 17.0, with hematocrit 53.3, MCV 92.2, and platelets 221,000. Serum sodium is 147, potassium 3.5, chloride 100, CO2 30, BUN 23, with creatinine 0.9, GFR 83, and blood glucose 146. Calculated osmolality is elevated at 289. Lactate is 1.5. UA reveals elevated specific gravity greater than or equal to 1.030, with 2+ protein, 1+ ketones, trace blood, and trace bacteria. TSH slightly elevated at 5.25. C-reactive protein is 58.9. Stool for occult blood is positive x 1. HOSPITAL COURSE The patient was placed in outpatient observation status at [facility] under the care of Dr. Deutsch. In light of his significant nausea, vomiting and difficulty keeping fluids and medications down, he was started on IV fluids of half-normal saline with 20 mEq of potassium 125 ml an hour to provide hydration. Initially we did start metronidazole 500 mg IV q.8h. for empiric antimicrobial coverage of GI pathogens. Case was discussed with Dr. Medina. As he was not able to keep down his minocycline, Dr. Medina did recommend Ancef 2 g IV every 8 hours for coverage secondary to his recent pacemaker placement. Lovenox was started 40 mg subcu daily for DVT prophylaxis. A stool sample was obtained for GI pathogens; ultimately this was unremarkable. Home medications were continued. Zofran was made available as needed for nausea. He was made DNR at time of presentation as per his request. By hospital day #1 he was still feeling very rough and nauseated. He was requiring IV antiemetics. His appetite was quite diminished and he was not interested in eating. His stools were less frequent but still loose. We did check occult blood which was positive. He was having some chest pain, feeling it was more reflux in nature. In light of his symptoms we did feel continued hospitalization would be prudent. Admission status was changed to inpatient as we anticipated greater than two midnights of care needed. IV fluids were decreased to 100 ml an hour to help minimize potential for volume overload. We did initiate Protonix for acid reflux as well as for his melena. Lovenox was held secondary to melena. We did attempt SCDs. The patient had difficulty tolerating this. Ancef was continued, but his GI panel was negative. Metronidazole was able to be discontinued. By the next hospital day he was feeling somewhat better but still having a decreased appetite. He was noticing a lot of pain and discomfort with swallowing. He was even having a hard time keeping water down. He was passing flatus. Case was discussed with Dr. Cornell about his pain with swallowing. We discussed about possible EGD, but we felt we could hold on this for the current time. Protonix was continued at 40 mg IV b.i.d. and Carafate was started 1 g a.c. meals and h.s. to provide further stomach and esophageal protection. As he was still having significant nausea, clear liquids were continued. Cardiac telemetry was showing episodes of nonsustained V-tach; consult was placed to Dr. Medina in regards to this. By the next hospital day we did have consult PT and OT. Overall strength and functional status was good. We encouraged him on ambulation activities in the [place]. White count was defervescing. Ultimately his white count had normalized to 11.0 at time of discharge. His pain and discomfort with swallowing did improve significantly during the hospitalization. IV fluids were able to be discontinued. With lab monitoring, we did see trend downwards of hemoglobin. His initial hemoglobin was 17.0, but I feel this is heme concentrated as the prior day it was more in the 15s. His hemoglobin did drop down to 12.8 by the but by time of discharge on the it was normal at 4.0. He was not passing bloody stool or having any signs or symptoms of GI blood loss. Liver enzymes remained stable during the hospitalization. His renal function remained stable, with creatinine 1.0 at time of discharge. Sodium and potassium were normal at 141 and 4.[address] of [address] Medina did recommend decreasing his losartan-HCT to 50/12.5 mg daily. Additionally he recommended metoprolol 25 mg b.i.d. with meals in light of his coronary disease and nonsustained V-tach. Dr. Medina reports he has had recent workup and evaluation for coronary artery disease and did not feel further evaluation for the brief episodes of nonsustained V-tach that we saw during the hospitalization was needed. While the patient felt his respiratory status did well during the hospitalization, he was requiring oxygen. He has underlying sleep apnea, but has been very reluctant to use a CPAP device at home secondary to causing nosebleeds. He did meet qualification for oxygen with activities - He could 2 liters per nasal cannula, but as he feels cannula bothers his nose, we did need to provide mask. This caused oxygen needs to increase to around the 4-5 liter range. At time of discharge he was taking oral in well. Vitals were stable and he was afebrile. He was ambulating in halls without difficulty. Weight was stable. He was not having chest pressure or pain. He was able to be discharged to home in stable condition. Narrative disclaimer: Above narrative is a brief summary of the patient's hospitalization; for complete details of the H&P refer to that document. DISCHARGE CONDITION Stable/good. DIET Low sodium, heart healthy diet. ACTIVITIES As tolerated, walker for assistance. MEDICATIONS Stop minocycline. Cephalexin 500 mg p.o. t.i.d. x six doses. Losartan-HCT 100/25 one-half tablet daily. Metoprolol tartrate 25 mg b.i.d. with meals. Sucralfate 1 g a.c. meals and q.h.s. x 2 weeks. Furosemide 80 mg b.i.d. Lovastatin 20 mg daily - best taken at night. Magnesium oxide 400 mg b.i.d. Nitrostat 0.4 mg sublingual p.r.n. Omeprazole 20 mg daily. Percocet 5/325 one to two q.6h. p.r.n. pain. Potassium 20 mEq t.i.d. Zoloft 25 mg q.h.s. FOLLOWUP The patient will follow with Dr. Cornell within 48 hours post discharge. The patient will follow with Dr. Medina as scheduled. INSTRUCTION TO PATIENT The patient was instructed on his diagnosis and treatments provided. He was encouraged to be adherent with medications. We encouraged him to be adherent with oxygen use. He was encouraged on healthy, well-rounded diet and activities. He will watch for a temperature greater than 104, new or worsening respiratory status, or chest pain. Should problems or need occur he can be in contact with Dr. Cornell or Dr. Medina. If symptoms become quite dire he can present to emergency room for acute evaluation. He voiced understanding of the above. Time spent with discharge greater than 35 minutes. MTDD
== END 2016-06-15 12:58 | disposition home or self-care (01) | DRG 391 ==
LOC: ED 11:43 → EEVIPCON 16:10 → MED 16:10 → OBSVTOIN 06-11 16:29
PROVIDERS: ADMIT Hospitalist; ATTEND Hospitalist
DX: K52.9 Noninfective gastroenteritis and colitis, unspecified (principal); I50.33 Acute on chronic diastolic (congestive) heart failure; E87.0 Hyperosmolality and hypernatremia; K92.1 Melena; I47.2 Ventricular tachycardia; Z68.41 Body mass index [BMI] 40.0-44.9, adult; E87.6 Hypokalemia; I25.2 Old myocardial infarction; E66.01 Morbid (severe) obesity due to excess calories; I25.10 Atherosclerotic heart disease of native coronary artery without angina pectoris; G47.33 Obstructive sleep apnea (adult) (pediatric); M15.0 Primary generalized (osteo)arthritis; F32.9 Major depressive disorder, single episode, unspecified; E78.00 Pure hypercholesterolemia, unspecified; R13.10 Dysphagia, unspecified; E11.51 Type 2 diabetes mellitus with diabetic peripheral angiopathy without gangrene; K21.9 Gastro-esophageal reflux disease without esophagitis; Z66 Do not resuscitate; Z87.891 Personal history of nicotine dependence; Z79.899 Other long term (current) drug therapy; Z95.0 Presence of cardiac pacemaker
CPT/HCPCS: 36415; 80048; 80053; 81001; 82272; 83036; 83605; 83735; 84443; 84484; 85025; 85027; 86140; 86850; 86900; 86901; 87040; 87507; 94761; 96361; 96365; 96366; 96367; 96372; 96375

== ENCOUNTER → 2016-06-28 | Outpatient (CLI) | payer MEDICAID ==
[~2016-06-28] MED LIST changes: +CEPH500T PO; +METO25TA6 PO; -MINO100C43 PO; +OMEP20TA2 PO; +SUCR1TAB PO
[2016-06-28 14:19] LABS: ANION GAP 9 MEQ/L (5-15); BUN/CREATININE RATIO 18 RATIO (6-26); CHLORIDE 100 MEQ/L (98-107); CO2 - CARBON DIOXIDE 34 MEQ/L (22-30); CREATININE 0.9 MG/DL (0.8-1.5); GLOMERULAR FILTRATION RATE 83; GLUCOSE 119 MG/DL (75-110); SODIUM 143 MEQ/L (134-144)
== END ==
LOC: LAB 13:59
PROVIDERS: ATTEND Family Medicine
DX: R60.0 Localized edema (principal)
CPT/HCPCS: 36415; 80048

== ENCOUNTER 2017-08-22 14:10 | Inpatient (IN) ==
--- OUTSIDE RECORDS SUMMARY | 2017-08-22 14:39 | External Medical Summary ---
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 Problem Hypercholesterolemia 272.2 Active Problem Depressive disorder, not 311 Active elsewhere classified Problem Chronic systolic heart failure 428.22 Active Problem Coronary atherosclerosis of 414.01 Active [place] coronary artery Problem Old myocardial infarction 412 Active Problem Hypertension, benign 401.1 Active Problem Morbid obesity 278.01 Active Medications Medication Code System Code Instructions Start End Date Status Dosage Date Sertraline HCl [facility] [address] 25 MG Orally Once 1 tablet 2-13 a day Results No Known Results Summary Purpose [employer] Submission
--- OUTSIDE RECORDS SUMMARY | 2017-08-22 14:40 | External Medical Summary | Continuity of Care Document ---
:1945 Author Organization [facility] Allergies Active Description Code Type Severity Reaction Onset Reported/ Identified Relationship Clinical to Patient Status Yes Aspirin 52159 Drug Moderate N/A (ASA) 002PV Aller gy Yes morphine Drug Severe RESP 05/29/2008 Aller ARREST/ gy CARDIAC ARREST Yes Morphine 93038 Drug Severe Cardiac 03/30/2009 Sulfate 003YT Aller arrest gy Yes aspirin AdvRe Unknown nose 06/08/2016 ac bleed Yes morphine Aller S heart 06/08/2016 gy stops Yes Opioids - morph Aller S heart 06/08/2016 Morphine ine gy stops Analogues Yes Salicylates aspir AdvRe Unknown nose 06/08/2016 in ac bleed Medications Medication Packaging Start Date Stop Date Route Dosage Sig 03/23/2013 PO 10 meq Potassium Chloride TID 03/23/2013 PO 20 mg Lovastatin DAILY 12/19/2013 PO 25 mg Sertraline HCl HS 12/25/2013 PO 80 mg Furosemide BID.. MEQ 06/09/2016 20 Potassium Chloride TID MG 06/09/2016 20 Lovastatin DAILY TAB 06/09/2016 1-2 Oxycodone Q6H HCl/Acetaminophen MG 06/09/2016 100 Minocycline HCl Q12H MG 06/09/2016 400 Magnesium Oxide BID MG 06/09/2016 25 Sertraline HS MG 06/09/2016 0.4 Nitroglycerin Q5M MG 06/09/2016 80 Furosemide BID.. TAB 06/09/2016 1 Losartan/Hydrochlor DAILY othiazide 06/10/2016 PO 400 mg Magnesium Oxide BID 06/10/2016 SL 0.4 mg Nitrostat Q5M 06/11/2016 PO 20 mg Prilosec Otc DAILY MEQ 06/15/2016 20 Potassium Chloride TID MG 06/15/2016 20 Lovastatin DAILY TAB 06/15/2016 1 Omeprazole DAILY Magnesium TAB 06/15/2016 1-2 Oxycodone Q6H HCl/Acetaminophen MG 06/15/2016 400 Magnesium Oxide BID MG 06/15/2016 PO 25 mg Metoprolol Tartrate BIDWM MG 06/15/2016 25 Sertraline HS TAB 06/15/2016 PO 500 mg Cephalexin TID GM 06/15/2016 PO 1 gm Sucralfate ACHS MG 06/15/2016 0.4 Nitroglycerin Q5M MG 06/15/2016 80 Furosemide BID.. TAB 06/15/2016 PO 1 each Losartan-Hctz DAILY 100-25 mg Tab Problems Date Dx Attending Type Code Diagnosis Diagnosed By Coded 12/28/2009 Chely العلي, F 428.0 CHF [place] 12/28/2009 Jaylen DIAZ, F 428.0 CHF Gonzalo J. 12/28/2009 Jaylen DIAZ, F 428.0 CHF Gonzalo J. 12/28/2009 Jaylen DIAZ, F 428.0 CHF Gonzalo J. 12/28/2009 Jaylen DIAZ, F 428.0 CHF Gonzalo J. 12/28/2009 Jaylen DIAZ, F 428.0 CHF Gonzalo J. 03/02/2010 Jaylen DIAZ, F 414.01 Coronary artery Gonzalo J. disease 03/02/2010 Jaylen DIAZ, F 414.01 Coronary artery Gonzalo J. disease 06/03/2010 Chely العلي, F 401.1 HTN [place] 06/03/2010 Trever Rollins RN F 401.1 HTN 06/03/2010 Trever Rollins RN F 401.1 HTN 06/03/2010 Jaylen DIAZ, F 401.1 HTN Gonzalo J. 06/03/2010 Jaylen DIAZ, F 401.1 HTN Gonzalo J. 06/03/2010 Jaylen DIAZ, F 401.1 HTN Gonzalo J. 03/29/2011 Chely العلي, F 459.81 Venous stasis [place] 03/29/2011 Jaylen DIAZ, F 459.81 Venous stasis Gonzalo J. 02/07/2012 Chely العلي, F 790.21 Impaired fasting [place] glucose 02/07/2012 Trever Rollins RN F 790.21 Impaired fasting glucose 02/07/2012 Trever Rollins RN F 790.21 Impaired fasting glucose 02/07/2012 Jaylen DIAZ, F 790.21 Impaired fasting Gonzalo J. glucose 02/07/2012 Jaylen DIAZ, F 790.21 Impaired fasting Gonzalo J. glucose 02/07/2012 Jaylen DIAZ, F 790.21 Impaired fasting Gonzalo J. glucose 05/09/2013 Jaylen DIAZ, F 787.91 Diarrhea Gonzalo J. 05/09/2013 Jaylen DIAZ, F 729.5 Leg pain Gonzalo Douglas. 05/09/2013 Jaylen DIAZ, F 530.81 GERD Gonzalo Douglas. 05/09/2013 Jaylen DIAZ, F 530.81 GERD Gonzalo Douglas. 05/09/2013 Jaylen DIAZ, F 530.81 GERD Gonzalo Douglas. 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 06/09/2016 ROSY DIAZ, PATRICK I25.2 OLD MYOCARDIAL M INFARCTION 06/09/2016 ROSY DIAZ, PATRICK I49.5 SICK SINUS SYNDROME M 06/09/2016 ROSY DIAZ, PATRICK I50.30 UNSPECIFIED DIASTOLIC M (CONGESTIVE) HEART FAILURE 06/09/2016 ROSY DIAZ, PATRICK I87.2 VENOUS INSUFFICIENCY M (CHRONIC) (PERIPHERAL) 06/09/2016 ROSY DIAZ, PATRICK R55 SYNCOPE AND COLLAPSE M 06/09/2016 ROSY DIAZ, PATRICK Z79.1 FPC (CURRENT) M USE OF NON-STEROIDAL NON-INFLAM (NSAID) 06/09/2016 ROSY DIAZ, PATRICK Z79.899 OTHER FPC M (CURRENT) DRUG THERAPY 06/10/2016 CHRISTIANO DIAZ, E87.0 HYPEROSMOLALITY AND JUNE D HYPERNATREMIA 06/10/2016 CHRISTIANO DIAZ, E87.6 HYPOKALEMIA JUNE D 06/10/2016 CHRISTIANO DIAZ, I50.32 CHRONIC DIASTOLIC JUNE D (CONGESTIVE) HEART FAILURE 06/10/2016 CHRISTIANO DIAZ, K52.9 NONINFECTIVE JUNE D GASTROENTERITIS AND COLITIS, UNSPECIFIED 06/15/2016 CHRISTIANO DIAZ, E11.51 TYPE 2 DIABETES 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 06/15/2016 CHRISTIANO DIAZ, E66.01 MORBID (SEVERE) JUNE D OBESITY DUE TO EXCESS CALORIES 06/15/2016 CHRISTIANO DIAZ, E78.00 PURE JUNE D HYPERCHOLESTEROLEMIA, UNSPECIFIED 06/15/2016 CHRISTIANO DIAZ, E87.0 HYPEROSMOLALITY AND JUNE D HYPERNATREMIA 06/15/2016 CHRISTIANO DIAZ, E87.6 HYPOKALEMIA JUNE D 06/15/2016 CHRISTIANO DIAZ, F32.9 MAJOR DEPRESSIVE JUNE D DISORDER, SINGLE EPISODE, UNSPECIFIED 06/15/2016 CHRISTIANO DIAZ, G47.33 OBSTRUCTIVE SLEEP JUNE D APNEA (ADULT) (PEDIATRIC) 06/15/2016 CHRISTIANO DIAZ, I25.10 ATHSCL HEART DISEASE JUNE D OF [place] CORONARY ARTERY W/O ANG PCTRS 06/15/2016 CHRISTIANO DIAZ, I25.2 OLD MYOCARDIAL JUNE D INFARCTION 06/15/2016 CHRISTIANO DIAZ, I47.2 VENTRICULAR JUNE D TACHYCARDIA 06/15/2016 CHRISTIANO DIAZ, I50.33 ACUTE ON CHRONIC JUNE D DIASTOLIC (CONGESTIVE) HEART FAILURE 06/15/2016 CHRISTIANO DIAZ, K21.9 GASTRO-ESOPHAGEAL JUNE D REFLUX DISEASE WITHOUT ESOPHAGITIS 06/15/2016 CHRISTIANO DIAZ, K52.9 NONINFECTIVE JUNE D GASTROENTERITIS AND COLITIS, UNSPECIFIED 06/15/2016 CHRISTIANO DIAZ, K92.1 MELENA JUNE D 06/15/2016 CHRISTIANO DIAZ, M15.0 PRIMARY 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 06/15/2016 CHRISTIANO DIAZ, R13.10 DYSPHAGIA, JUNE D UNSPECIFIED 06/15/2016 CHRISTIANO DIAZ, Z66 DO NOT RESUSCITATE JUNE D 06/15/2016 CHRISTIANO DIAZ, Z68.41 BODY MASS INDEX (BMI) JUNE D 40.0-44.9, ADULT 06/15/2016 CHRISTIANO DIAZ, Z79.899 OTHER AIRPLANE TESTER JUNE D (CURRENT) DRUG THERAPY 06/15/2016 CHRISTIANO DIAZ, Z87.891 PERSONAL HISTORY OF 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 NICOTINE DEPENDENCE 06/15/2016 CHRISTIANO DIAZ, Z95.0 PRESENCE OF CARDIAC JUNE D PACEMAKER 07/17/2016 Cande Freeman Ot E11.9 TYPE 2 DIABETES MELLITUS WITHOUT COMPLIC 07/19/2016 CANDE FREEMAN MD R60.0 LOCALIZED EDEMA D 07/26/2016 CANDE FREEMAN MD R60.0 LOCALIZED EDEMA D 07/26/2016 CANDE FREEMAN MD R60.0 LOCALIZED EDEMA D 07/27/2016 Cande Freeman Ot E11.9 TYPE 2 DIABETES MELLITUS WITHOUT COMPLIC 04/19/2017 CANDE FREEMAN MD I25.10 Atherosclerotic heart CANDE FREEMAN MD disease of [place] D coronary artery without angina pectoris Procedures Code Description Performed By Performed On JL 60-89 per 12/21/2012 [id number] week; CDEMS code 42687 BMP (Basic 12/21/2012 Metabolic Panel) 03386 FLP (Fasting 12/21/2012 Lipid Panel) 47946 HgA1c 12/21/2012 36933 12/21/2012 Office/outpatient visit; established patient, level 4 REFCAR CARDIOLOGY 12/21/2012 REFERRAL 90014 03/27/13 CMP 12/25/2012 (Comprehensive Metabolic Panel) 29860 03/27/13 HgA1c 12/25/2012 77299 06/25/13 CMP 12/25/2012 (Comprehensive Metabolic Panel) 18600 06/25/13 HgA1c 12/25/2012 39223 06/25/13 FLP 12/25/2012 (Fasting Lipid Panel) JL 60-89 per 05/09/2013 [id number] week; CDEMS code [id number] CHF patient 05/09/2013 education 00469 Colonoscopy, 05/09/2013 flexible; diagnostic 42898 Upper 05/09/2013 gastrointestinal endoscopy including esophagus, stomach, and either the duodenum and/or jejunu 17451 05/09/2013 Office/outpatient visit; established patient, level 4 [id number] Queried Patient 05/13/2013 for Tobacco Use [id number] Queried Patient 05/14/2013 for Tobacco Use JL 60-89 per 08/09/2013 [id number] week; CDEMS code [id number] CHF patient 08/09/2013 education [id number] Queried Patient 08/09/2013 for Tobacco Use 56459 08/09/2013 Office/outpatient visit; established patient, level 4 JL 60-89 per 11/07/2013 [id number] week; EMS code [id number] CHF patient 11/07/2013 education 66042 11/07/2013 Office/outpatient visit; established patient, level 4 Results Test Result Range BASIC METABOLIC PANEL* - 02/18/16 11:30 Sodium measurement 136 70-110 Carbon dioxide measurement 29 22-29 Serum or plasma anion gap 14.9 3-15 BLOOD UREA NITROGEN 20 7-18 CREATININE SERUM 0.98 0.8-1.5 Brucella species antibody panel (IgG, IgM) 20 10-20 Estimated glomerular filtration rate (GFR) 91.8 [place] Estimated glomerular filtration rate (GFR) 75.8 non- CALCIUM 9.4 8.8-10.8 BASIC METABOLIC PANEL* - 03/29/16 11:15 Sodium measurement 143 70-110 CARBON DIOXIDE 30 22-29 Serum or plasma anion gap 15.2 3-15 BLOOD UREA NITROGEN 16 7-18 CREATININE SERUM 0.88 0.8-1.5 Brucella species antibody panel (IgG, IgM) 18 10-20 Estimated glomerular filtration rate (GFR) 103.9 [place] Estimated glomerular filtration rate (GFR) 85.9 non- CALCIUM 9.2 8.8-10.8 L200.0050 - 06/08/16 08:16 ICTERUS < 2 0-7 HEMOLYSIS < 15 0-25 TURBIDITY < 20 0-20 SODIUM 143 MEQ/L 134-144 POTASSIUM 4.1 MEQ/L 3.6-5 CHLORIDE 103 MEQ/L 98-107 CO2 - CARBON DIOXIDE 30 MEQ/L 22-30 ANION GAP 10 MEQ/L 5-15 BLOOD UREA NITROGEN 15.0 MG/DL 9-20 CREATININE 1.0 MG/DL 0.8-1.5 BUN/CREATININE RATIO 15 RATIO 6-26 GLOMERULAR FILTRATION RATE 74 GLUCOSE 120 MG/DL 75-110 OSMOLALITY,CALCULATED 277 MOSM/KG 261-280 CALCIUM 9.4 MG/DL 8.4-10.2 L100.0050 - 06/09/16 05:55 WBC - WHITE BLOOD COUNT 8.4 T/MM3 4.5-11.0 RED BLOOD COUNT 4.95 M/MM3 4.50-5.90 HGB - HEMOGLOBIN 14.7 GM/DL 13.5-17.5 HCT - HEMATOCRIT 46.9 % 41-53 MEAN CORPUSCULAR VOLUME 94.7 UM3 80-100 MEAN CORPUSCULAR HGB 29.7 UUG 26-34 MEAN CORPUSCULAR HGB CONC(MCHC 31.3 GM/DL 31-37 RDW STANDARD DEVIATION 50.9 FL 36.9-50.2 PLT - PLATELET COUNT 150 T/MM3 130-400 MEAN PLATELET VOLUME 10.5 UM3 9.4-12.4 NEUTROPHILS % (AUTO) 76.4 % 33-66 LYMPHOCYTES % (AUTO) 15.2 % 23-45 MONOCYTES % (AUTO) 6.7 % 0-9.0 EOSINOPHILS % (AUTO) 1.4 % 0-4 BASOPHILS % (AUTO) 0.1 % 0-2 IMMATURE GRANULOCYTE % (AUTO) 0.2 % 0.0-0.5 NEUTROPHILS # (AUTO) 6.4 T/MM3 1.8-7.7 LYMPHOCYTES # (AUTO) 1.3 T/MM3 1-4.8 MONOCYTES # (AUTO) 0.6 T/MM3 0-0.8 EOSINOPHILS # (AUTO) 0.1 T/MM3 0-0.5 BASOPHILS # (AUTO) 0.0 T/MM3 0-0.2 IMMATURE GRANULOCYTE # (AUTO) 0.02 T/MM3 0.00-0.03 L200.005 - 06/09/16 05:55 ICTERUS < 2 0-7 HEMOLYSIS 15 0-25 TURBIDITY < 20 0-20 SODIUM 143 MEQ/L 134-144 POTASSIUM 4.2 MEQ/L 3.6-5 CHLORIDE 102 MEQ/L 98-107 CO2 - CARBON DIOXIDE 32 MEQ/L 22-30 ANION GAP 9 MEQ/L 5-15 BLOOD UREA NITROGEN 17.0 MG/DL 9-20 CREATININE 0.8 MG/DL 0.8-1.5 BUN/CREATININE RATIO 21 RATIO 6-26 GLOMERULAR FILTRATION RATE 96 GLUCOSE 109 MG/DL 75-110 OSMOLALITY,CALCULATED 278 MOSM/KG 261-280 CALCIUM 9.1 MG/DL 8.4-10.2 L100.005 - 06/10/16 12:29 WBC - WHITE BLOOD COUNT 21.4 T/MM3 4.5-11.0 RED BLOOD COUNT 5.78 M/MM3 4.50-5.90 HGB - HEMOGLOBIN 17.0 GM/DL 13.5-17.5 HCT - HEMATOCRIT 53.3 % 41-53 MEAN CORPUSCULAR VOLUME 92.2 UM3 80-100 MEAN CORPUSCULAR HGB 29.4 UUG 26-34 MEAN CORPUSCULAR HGB CONC(MCHC 31.9 GM/DL 31-37 RDW STANDARD DEVIATION 50.3 FL 36.9-50.2 PLT - PLATELET COUNT 221 T/MM3 130-400 MEAN PLATELET VOLUME 11.2 UM3 9.4-12.4 L100.0105 - 06/10/16 12:29 NEUTROPHILS % (MANUAL) 93.0 % 33-66 BAND NEUTROPHILS % 4.0 % 0-6 LYMPHOCYTES % (MANUAL) 1.0 % 23-45 MONOCYTES % (MANUAL) 2.0 % 0-9.0 BAND NEUTROPHILS # 0.9 T/MM3 NEUTROPHILS # (MANUAL) 19.9 T/MM3 1.8-7.7 LYMPHOCYTES # (MANUAL) 0.2 T/MM3 1-4.8 MONOCYTES # (MANUAL) 0.4 T/MM3 0-0.8 RBC MORPHOLOGY NORMAL L200.0050 - 06/10/16 12:29 ICTERUS < 2 0-7 HEMOLYSIS < 15 0-25 TURBIDITY < 20 0-20 SODIUM 147 MEQ/L 134-144 POTASSIUM 3.5 MEQ/L 3.6-5 CHLORIDE 100 MEQ/L 98-107 CO2 - CARBON DIOXIDE 30 MEQ/L 22-30 ANION GAP 17 MEQ/L 5-15 BLOOD UREA NITROGEN 23.0 MG/DL 9-20 CREATININE 0.9 MG/DL 0.8-1.5 BUN/CREATININE RATIO 26 RATIO 6-26 GLOMERULAR FILTRATION RATE 83 GLUCOSE 146 MG/DL 75-110 OSMOLALITY,CALCULATED 289 MOSM/KG 261-280 CALCIUM 9.9 MG/DL 8.4-10.2 L600.0175 - 06/10/16 12:29 COLOR,URINE YELLOW YELLOW TURBIDITY, URINE CLEAR CLEAR SPECIFIC GRAVITY,URINE >=1.030 1.015-1.025 PH, URINE - DIPSTICK 5.5 5.0-8.0 LEUKOCYTE ESTERASE ,URINE NEGATIVE NEGATIVE NITRITE,URINE NEGATIVE NEGATIVE PROTEIN,URINE - DIPSTICK 2+ NEGATIVE GLUCOSE, URINE - DIPSTICK NEGATIVE NEGATIVE KETONES,URINE - DIPSTICK 1+ NEGATIVE UROBILINOGEN,URINE 0.2 EU/DL NORMAL BILIRUBIN,URINE - DIPSTICK 2+ NEGATIVE BLOOD, URINE TRACE-INTACT NEGATIVE WBC,URINE NONE SEEN /HPF 0-5 RBC,URINE 1-3 /HPF 0-3 BACTERIA,URINE TRACE NEGATIVE MUCUS,URINE PRESENT HYALINE CASTS, URINE 3-5 /LPF CULTURE SET UP,URINE CULT NOT INDICATED L200.2067 - 06/10/16 13:31 LACTATE - LACTIC ACID, VENOUS 1.5 MMOL/L 0.6-2.2 M110.0195 - 06/10/16 18:11 ANTI-D NO GROWTH AFTER 5 DAYS L575.0925 - 06/10/16 22:24 CAMPYLOBACTER NEGATIVE NEGATIVE CLOSTRIDIUM DIFFICILE TOX A/B NEGATIVE NEGATIVE PLESIOMONAS SHIGELLOIDES NEGATIVE NEGATIVE SALMONELLA NEGATIVE NEGATIVE VIBRIO NEGATIVE NEGATIVE VIBRIO CHOLERAE NEGATIVE NEGATIVE YERSINIA ENTERCOLITICA NEGATIVE NEGATIVE ENTEROAGGREGATIVE ECOLI(EAEC) NEGATIVE NEGATIVE ENTEROPATHOGENIC ECOLI(EPEC) NEGATIVE NEGATIVE ENTEROTOXIGENIC ECOLI(ETEC) NEGATIVE NEGATIVE SHIGA-LIKE TOX ECOLI(STEC) 1/2 NEGATIVE NEGATIVE E COLI O157 N/A NA/NEG SHIG/ENTEROINVASIVE ECOLI-EIEC NEGATIVE NEGATIVE CRYPTOSPORIDIUM NEGATIVE NEGATIVE CYCLOSPORA CAYETANENSIS NEGATIVE NEGATIVE ENTAMOEBA HISTOLYTICA NEGATIVE NEGATIVE GIARDIA LAMBLIA NEGATIVE NEGATIVE ADENOVIRUS F 40/41 NEGATIVE NEGATIVE ASTROVIRUS NEGATIVE NEGATIVE NOROVIRUS GI/GII NEGATIVE NEGATIVE ROTAVIRUS A NEGATIVE NEGATIVE SAPOVIRUS NEGATIVE NEGATIVE L100.0050 - 06/11/16 05:21 WBC - WHITE BLOOD COUNT 22.0 T/MM3 4.5-11.0 RED BLOOD COUNT 5.19 M/MM3 4.50-5.90 HGB - HEMOGLOBIN 15.8 GM/DL 13.5-17.5 HCT - HEMATOCRIT 48.8 % 41-53 MEAN CORPUSCULAR VOLUME 94.0 UM3 80-100 MEAN CORPUSCULAR HGB 30.4 UUG 26-34 MEAN CORPUSCULAR HGB CONC(MCHC 32.4 GM/DL 31-37 RDW STANDARD DEVIATION 52.3 FL 36.9-50.2 PLT - PLATELET COUNT 217 T/MM3 130-400 MEAN PLATELET VOLUME 10.6 UM3 9.4-12.4 L100.0105 - 06/11/16 05:21 NEUTROPHILS % (MANUAL) 82.0 % 33-66 BAND NEUTROPHILS % 10.0 % 0-6 LYMPHOCYTES % (MANUAL) 5.0 % 23-45 MONOCYTES % (MANUAL) 3.0 % 0-9.0 BAND NEUTROPHILS # 2.2 T/MM3 NEUTROPHILS # (MANUAL) 18.0 T/MM3 1.8-7.7 LYMPHOCYTES # (MANUAL) 1.1 T/MM3 1-4.8 MONOCYTES # (MANUAL) 0.7 T/MM3 0-0.8 RBC MORPHOLOGY ABNORMAL ANISOCYTOSIS 1+ L200.0020 - 06/11/16 05:21 ICTERUS < 2 0-7 HEMOLYSIS 33 0-25 TURBIDITY < 20 0-20 SODIUM 144 MEQ/L 134-144 POTASSIUM 3.7 MEQ/L 3.6-5 CHLORIDE 101 MEQ/L 98-107 CO2 - CARBON DIOXIDE 32 MEQ/L 22-30 ANION GAP 11 MEQ/L 5-15 BLOOD UREA NITROGEN 29.0 MG/DL 9-20 CREATININE 0.9 MG/DL 0.8-1.5 BUN/CREATININE RATIO 32 RATIO 6-26 GLOMERULAR FILTRATION RATE 83 GLUCOSE 177 MG/DL 75-110 OSMOLALITY,CALCULATED 287 MOSM/KG 261-280 CALCIUM 8.4 MG/DL 8.4-10.2 BILIRUBIN,TOTAL 0.90 MG/DL 0.20-1.30 ALKALINE PHOSPHATASE 80 U/L 38-126 TOTAL PROTEIN 7.1 G/DL 6.3-8.2 ALBUMIN 3.7 G/DL 3.5-5.0 GLOBULIN 3.4 G/DL 2.4-3.6 ALBUMIN/GLOBULIN RATIO 1.1 RATIO 1.1-2.2 AST (SGOT) 30 U/L 17-59 ALT (SGPT) 25 U/L 21-72 L200.1848 - 06/11/16 11:12 HEMOLYSIS 39 0-25 TROPONIN I 0.028 ng/ml 0-0.12 L500.6535 - 06/11/16 13:15 OCCULT BLOOD, STOOL POSITIVE L100.0070 - 06/11/16 17:20 WBC - WHITE BLOOD COUNT 27.9 T/MM3 4.5-11.0 RED BLOOD COUNT 5.06 M/MM3 4.50-5.90 HGB - HEMOGLOBIN 15.3 GM/DL 13.5-17.5 HCT - HEMATOCRIT 48.1 % 41-53 MEAN CORPUSCULAR VOLUME 95.1 UM3 80-100 MEAN CORPUSCULAR HGB 30.2 UUG 26-34 MEAN CORPUSCULAR HGB CONC(MCHC 31.8 GM/DL 31-37 RDW STANDARD DEVIATION 52.9 FL 36.9-50.2 PLT - PLATELET COUNT 198 T/MM3 130-400 MEAN PLATELET VOLUME 10.6 UM3 9.4-12.4 L200.1848 - 06/11/16 17:20 HEMOLYSIS < 15 0-25 TROPONIN I 0.028 ng/ml 0-0.12 B100.07 - 06/11/16 17:21 BLOOD TYPE A POSITIVE ANTIBODY SCREEN NEGATIVE B110.1099 - 06/11/16 17:21 BBT5 A POSITIVE L100.0050 - 06/12/16 04:57 WBC - WHITE BLOOD COUNT 18.0 T/MM3 4.5-11.0 RED BLOOD COUNT 4.62 M/MM3 4.50-5.90 HGB - HEMOGLOBIN 13.9 GM/DL 13.5-17.5 HCT - HEMATOCRIT 44.3 % 41-53 MEAN CORPUSCULAR VOLUME 95.9 UM3 80-100 MEAN CORPUSCULAR HGB 30.1 UUG 26-34 MEAN CORPUSCULAR HGB CONC(MCHC 31.4 GM/DL 31-37 RDW STANDARD DEVIATION 53.5 FL 36.9-50.2 PLT - PLATELET COUNT 192 T/MM3 130-400 MEAN PLATELET VOLUME 10.8 UM3 9.4-12.4 L100.0105 - 06/12/16 04:57 NEUTROPHILS % (MANUAL) 92.0 % 33-66 BAND NEUTROPHILS % 2.0 % 0-6 LYMPHOCYTES % (MANUAL) 6.0 % 23-45 BAND NEUTROPHILS # 0.4 T/MM3 NEUTROPHILS # (MANUAL) 16.6 T/MM3 1.8-7.7 LYMPHOCYTES # (MANUAL) 1.1 T/MM3 1-4.8 RBC MORPHOLOGY NORMAL L200.0020 - 06/12/16 04:57 ICTERUS < 2 0-7 HEMOLYSIS 44 0-25 TURBIDITY < 20 0-20 SODIUM 143 MEQ/L 134-144 POTASSIUM 4.6 MEQ/L 3.6-5 CHLORIDE 108 MEQ/L 98-107 CO2 - CARBON DIOXIDE 25 MEQ/L 22-30 ANION GAP 10 MEQ/L 5-15 BLOOD UREA NITROGEN 26.0 MG/DL 9-20 CREATININE 0.9 MG/DL 0.8-1.5 BUN/CREATININE RATIO 29 RATIO 6-26 GLOMERULAR FILTRATION RATE 83 GLUCOSE 128 MG/DL 75-110 OSMOLALITY,CALCULATED 282 MOSM/KG 261-280 CALCIUM 8.2 MG/DL 8.4-10.2 BILIRUBIN,TOTAL 0.70 MG/DL 0.20-1.30 ALKALINE PHOSPHATASE 62 U/L 38-126 TOTAL PROTEIN 5.9 G/DL 6.3-8.2 ALBUMIN 3.0 G/DL 3.5-5.0 GLOBULIN 2.9 G/DL 2.4-3.6 ALBUMIN/GLOBULIN RATIO 1.0 RATIO 1.1-2.2 AST (SGOT) 21 U/L 17-59 ALT (SGPT) 21 U/L 21-72 L200.1860 - 06/12/16 04:57 C-REACTIVE PROTEIN 59.8 MG/L 0-9 L200.6775 - 06/12/16 04:57 HEMOGLOBIN A1C 6.2 % 6.1-7.9 L200.1999 - 06/12/16 15:40 MAGNESIUM 2.0 MG/DL 1.6-2.3 L200.3850 - 06/12/16 15:40 THYROID STIM HORMONE-TSH 5.25 MIU/L 0.47-4.68 L200.0050 - 06/13/16 04:41 ICTERUS < 2 0-7 HEMOLYSIS < 15 0-25 TURBIDITY < 20 0-20 SODIUM 144 MEQ/L 134-144 POTASSIUM 4.7 MEQ/L 3.6-5 CHLORIDE 109 MEQ/L 98-107 CO2 - CARBON DIOXIDE 25 MEQ/L 22-30 ANION GAP 10 MEQ/L 5-15 BLOOD UREA NITROGEN 24.0 MG/DL 9-20 CREATININE 1.1 MG/DL 0.8-1.5 BUN/CREATININE RATIO 22 RATIO 6-26 GLOMERULAR FILTRATION RATE 66 GLUCOSE 99 MG/DL 75-110 OSMOLALITY,CALCULATED 281 MOSM/KG 261-280 CALCIUM 8.5 MG/DL 8.4-10.2 L100.49 - 06/13/16 04:41 WBC - WHITE BLOOD COUNT 11.9 T/MM3 4.5-11.0 RED BLOOD COUNT 4.21 M/MM3 4.50-5.90 HGB - HEMOGLOBIN 12.9 GM/DL 13.5-17.5 HCT - HEMATOCRIT 40.8 % 41-53 MEAN CORPUSCULAR VOLUME 96.9 UM3 80-100 MEAN CORPUSCULAR HGB 30.6 UUG 26-34 MEAN CORPUSCULAR HGB CONC(MCHC 31.6 GM/DL 31-37 RDW STANDARD DEVIATION 54.8 FL 36.9-50.2 PLT - PLATELET COUNT 157 T/MM3 130-400 MEAN PLATELET VOLUME 10.7 UM3 9.4-12.4 NEUTROPHILS % (AUTO) 82.7 % 33-66 LYMPHOCYTES % (AUTO) 9.8 % 23-45 MONOCYTES % (AUTO) 6.3 % 0-9.0 EOSINOPHILS % (AUTO) 0.9 % 0-4 BASOPHILS % (AUTO) 0.1 % 0-2 IMMATURE GRANULOCYTE % (AUTO) 0.2 % 0.0-0.5 NEUTROPHILS # (AUTO) 9.8 T/MM3 1.8-7.7 LYMPHOCYTES # (AUTO) 1.2 T/MM3 1-4.8 MONOCYTES # (AUTO) 0.8 T/MM3 0-0.8 EOSINOPHILS # (AUTO) 0.1 T/MM3 0-0.5 BASOPHILS # (AUTO) 0.0 T/MM3 0-0.2 IMMATURE GRANULOCYTE # (AUTO) 0.02 T/MM3 0.00-0.03 L100.49 - 06/14/16 04:36 WBC - WHITE BLOOD COUNT 11.1 T/MM3 4.5-11.0 RED BLOOD COUNT 4.24 M/MM3 4.50-5.90 HGB - HEMOGLOBIN 12.8 GM/DL 13.5-17.5 HCT - HEMATOCRIT 40.7 % 41-53 MEAN CORPUSCULAR VOLUME 96.0 UM3 80-100 MEAN CORPUSCULAR HGB 30.2 UUG 26-34 MEAN CORPUSCULAR HGB CONC(MCHC 31.4 GM/DL 31-37 RDW STANDARD DEVIATION 52.8 FL 36.9-50.2 PLT - PLATELET COUNT 165 T/MM3 130-400 MEAN PLATELET VOLUME 10.7 UM3 9.4-12.4 NEUTROPHILS % (AUTO) 80.3 % 33-66 LYMPHOCYTES % (AUTO) 11.2 % 23-45 MONOCYTES % (AUTO) 6.0 % 0-9.0 EOSINOPHILS % (AUTO) 2.2 % 0-4 BASOPHILS % (AUTO) 0.1 % 0-2 IMMATURE GRANULOCYTE % (AUTO) 0.2 % 0.0-0.5 NEUTROPHILS # (AUTO) 8.9 T/MM3 1.8-7.7 LYMPHOCYTES # (AUTO) 1.2 T/MM3 1-4.8 MONOCYTES # (AUTO) 0.7 T/MM3 0-0.8 EOSINOPHILS # (AUTO) 0.2 T/MM3 0-0.5 BASOPHILS # (AUTO) 0.0 T/MM3 0-0.2 IMMATURE GRANULOCYTE # (AUTO) 0.02 T/MM3 0.00-0.03 L200.49 - 06/14/16 04:36 ICTERUS < 2 0-7 HEMOLYSIS < 15 0-25 TURBIDITY < 20 0-20 SODIUM 143 MEQ/L 134-144 POTASSIUM 4.4 MEQ/L 3.6-5 CHLORIDE 105 MEQ/L 98-107 CO2 - CARBON DIOXIDE 29 MEQ/L 22-30 ANION GAP 9 MEQ/L 5-15 BLOOD UREA NITROGEN 19.0 MG/DL 9-20 CREATININE 1.1 MG/DL 0.8-1.5 BUN/CREATININE RATIO 17 RATIO 6-26 GLOMERULAR FILTRATION RATE 66 GLUCOSE 98 MG/DL 75-110 OSMOLALITY,CALCULATED 277 MOSM/KG 261-280 CALCIUM 8.7 MG/DL 8.4-10.2 L100.49 - 06/15/16 05:22 WBC - WHITE BLOOD COUNT 11.0 T/MM3 4.5-11.0 RED BLOOD COUNT 4.66 M/MM3 4.50-5.90 HGB - HEMOGLOBIN 14.0 GM/DL 13.5-17.5 HCT - HEMATOCRIT 43.9 % 41-53 MEAN CORPUSCULAR VOLUME 94.2 UM3 80-100 MEAN CORPUSCULAR HGB 30.0 UUG 26-34 MEAN CORPUSCULAR HGB CONC(MCHC 31.9 GM/DL 31-37 RDW STANDARD DEVIATION 51.8 FL 36.9-50.2 PLT - PLATELET COUNT 159 T/MM3 130-400 MEAN PLATELET VOLUME 10.6 UM3 9.4-12.4 NEUTROPHILS % (AUTO) 77.6 % 33-66 LYMPHOCYTES % (AUTO) 13.4 % 23-45 MONOCYTES % (AUTO) 6.4 % 0-9.0 EOSINOPHILS % (AUTO) 2.1 % 0-4 BASOPHILS % (AUTO) 0.2 % 0-2 IMMATURE GRANULOCYTE % (AUTO) 0.3 % 0.0-0.5 NEUTROPHILS # (AUTO) 8.6 T/MM3 1.8-7.7 LYMPHOCYTES # (AUTO) 1.5 T/MM3 1-4.8 MONOCYTES # (AUTO) 0.7 T/MM3 0-0.8 EOSINOPHILS # (AUTO) 0.2 T/MM3 0-0.5 BASOPHILS # (AUTO) 0.0 T/MM3 0-0.2 IMMATURE GRANULOCYTE # (AUTO) 0.03 T/MM3 0.00-0.03 L200.0050 - 06/15/16 05:22 ICTERUS < 2 0-7 HEMOLYSIS < 15 0-25 TURBIDITY < 20 0-20 SODIUM 141 MEQ/L 134-144 POTASSIUM 4.4 MEQ/L 3.6-5 CHLORIDE 99 MEQ/L 98-107 CO2 - CARBON DIOXIDE 33 MEQ/L 22-30 ANION GAP 9 MEQ/L 5-15 BLOOD UREA NITROGEN 17.0 MG/DL 9-20 CREATININE 1.0 MG/DL 0.8-1.5 BUN/CREATININE RATIO 17 RATIO 6-26 GLOMERULAR FILTRATION RATE 74 GLUCOSE 105 MG/DL 75-110 OSMOLALITY,CALCULATED 273 MOSM/KG 261-280 CALCIUM 8.9 MG/DL 8.4-10.2 L200.0050 - 06/28/16 14:07 ICTERUS < 2 0-7 HEMOLYSIS < 15 0-25 TURBIDITY < 20 0-20 SODIUM 143 MEQ/L 134-144 POTASSIUM 4.0 MEQ/L 3.6-5 CHLORIDE 100 MEQ/L 98-107 CO2 - CARBON DIOXIDE 34 MEQ/L 22-30 ANION GAP 9 MEQ/L 5-15 BLOOD UREA NITROGEN 16.0 MG/DL 9-20 CREATININE 0.9 MG/DL 0.8-1.5 BUN/CREATININE RATIO 18 RATIO 6-26 GLOMERULAR FILTRATION RATE 83 GLUCOSE 119 MG/DL 75-110 OSMOLALITY,CALCULATED 277 MOSM/KG 261-280 CALCIUM 9.0 MG/DL 8.4-10.2 HEMOGLOBIN A1C* - 07/07/16 10:50 HEMOGLOBIN A1C* 6.0 4.0-6.0 Urine microalbumin measurement by detection limit <=20 mg/l (mass/volume) - 07/07/16 10:50 Urine microalbumin measurement by detection limit 5.2 0.0-1.7 <=20 mg/l (mass/volume) Comprehensive metabolic panel - 07/12/16 11:05 Sodium measurement 92 70-110 CARBON DIOXIDE 32 22-29 Serum or plasma anion gap 15.6 3-15 BLOOD UREA NITROGEN 13 7-18 CREATININE SERUM 0.86 0.8-1.5 Brucella species antibody panel (IgG, IgM) 15 10-20 Estimated glomerular filtration rate (GFR) 106.4 [place] Estimated glomerular filtration rate (GFR) 87.9 non- OSMOLALITY,CALCULATED 271 280-300 CALCIUM 9.1 8.8-10.8 Calculated ionized calcium measurement 4.2 3.8-4.6 BILIRUBIN,TOTAL 1.0 0.1-1.0 Serum or plasma alkaline phosphatase measurement 103 38-126 ASPARTATE AMINO TRANSFERASE 22 15-37 ALANINE AMINOTRANSFERASE 31 30-65 Serum or plasma total protein measurement 6.4 6.4-8.5 Serum or plasma albumin measurement 3.7 3.4-5.0 Serum or plasma albumin/globulin mass ratio 1.370 1.1-1.8 LIPID PANEL - 07/12/16 11:05 Cholesterol 127 50-200 HDL Cholesterol 38 40-60 Triglycerides 131 10-150 LDL CHOLESTEROL 63 50-130 VLDL Cholesterol, calc 26 4.00-40.00 Cholesterol.total/Cholesterol.in HDL 3.3 0.0-5.0 Encounters ACCT No. Visit Discharge Status Pt. Provider Facility Loc./Unit Complaint Date/Time Type [id number] 06/27/2013 06/27/2013 ADALGISA REYNA.SWS.PL 1700 09:50:00 [facility]:59[id number] 07/17/2012 07/17/2012 Alden Box MD.JOSÉ LUIS [id number] 12:50:00 23:59:59 ent [facility] [id number] 07/12/2016 07/12/2016 CLS Mary TenorioBLUES CLAB BLUE [id number] 11:14:00 23:59:59 [facility] STEM [id number] 07/07/2016 07/07/2016 CLS Mary TenorioBLUES BLUESTEM 2304 15:28:00 23:59:59 [facility] [id number] 03/29/2016 03/29/2016 CLS Mary TenorioBLUES BLUESTEM [id number] 11:30:00 23:59:59 [facility] [id number] 02/18/2016 02/18/2016 CLS Mary Tenorio.BLUE BLUE STEM [id number] 12:37:00 23:59:59 [facility] LAB DROP OFF [id number] 06/27/2013 ACT Documen 15:34:17 t Registr ation [id number] 11/07/2013 11/07/2013 ONEIL York MD, IE 10:56:55 11:29:00 Gonzalo [id number] 08/13/2013 08/13/2013 ONEIL Means MA, 09:14:33 09:20:57 rosey [id number] 08/09/2013 08/09/2013 ONEIL York MD, 9N 10:19:22 11:05:00 rosey [id number] 05/13/2013 05/14/2013 ONEIL York MD, 1L 14:00:50 17:53:22 ent Gonzalo [id number] 05/13/2013 05/13/2013 ONEIL York MD, 1M 14:01:10 14:01:44 ent Gonzalo Edge [id number] 05/09/2013 05/09/2013 ONEIL York MD, QS 10:15:24 10:54:00 ent Gonzalo Edge [id number] 12/25/2012 12/25/2012 ONEIL Rollins RN, MP 10:36:11 10:37:51 rosey Perera [id number] 12/25/2012 12/25/2012 DIS Alcon Rollins RN, ML 10:31:43 10:33:14 ent Trever [id number] 12/21/2012 12/21/2012 DIS Alcon Hull9 11:25:41 14:17:00 ent Modesta العلي [id number] 04/25/2017 04/25/2017 ONEIL FREEMAN MD, Kedar [id number] 13:55:00 13:56:00 [facility] [employer] [place] [facility] [place] [facility] [id number] 04/05/2017 04/05/2017 ONEIL FREEMAN MD, Kedar [id number] 11:57:00 11:58:00 [facility] [id number] 06/28/2016 06/28/2016 ADALGISA FREEMAN MD, Kedar LAB [id number] 13:59:00 23:59:59 [facility] [id number] 06/11/2016 06/15/2016 ONEIL Thacker [facility] [id number] 16:29:00 12:58:00 nt , [facility] [id number] 06/08/2016 06/09/2016 ONEIL GALLEGOS MD, Kedar CATH 1990 07:21:00 18:10:00 [facility] [id number] 08/10/2017 Documen [id number] 09:21:00 t Trevor rodriguez
[2017-08-22 15:02] VITALS: BMI 45.0
[2017-08-22] MEDS ORDERED: NITROGLYCERIN 0.4 MG SUBLINGUAL TABLET SL PRN (15:15)
--- NOTE | 2017-08-22 15:43 | Family Practice History&Phys ---
History of Present Illness Chief complaint: Shortness of breath. HPI: He has had an increase in shortness of breath in the last couple of weeks. He reports that he's had a little bit of chest pain today. He denies fevers or chills or sweats. He's more short of breath with activity. He is not diabetic. Used to be on Lasix and it was discontinued about four weeks ago. He denies any increase in edema. [facility] Medical History Updates: COPD, Coronary artery disease, history of myocardial infarction September 2004, major depression, do not resuscitate, history of epiretinal membrane on the right eye, GERD, hypercholesterolemia, hypertension, pacemaker placed for junctional bradycardia, obstructive sleep apnea, prediabetes Surgical History: Colonoscopy June 27, 2013, EGD June 27, 2013. He had random biopsies showing normal tissue - Social History Smoking status: Unknown if ever smoked (Not a current smoker) Medications Home Medications Medication Instructions Recorded Confirmed Type Lovastatin 20 mg PO DAILY #0 03/23/13 History Potassium Chloride 20 meq PO BID #0 03/23/13 08/22/17 History Sertraline HCl 25 mg PO HS #0 12/19/13 08/22/17 History Furosemide 40 mg PO BID.. #0 12/25/13 08/22/17 History Magnesium Oxide 400 mg PO BID #0 06/10/16 History Nitroglycerin [Nitrostat] 0.4 mg SL Q5M PRN #0 06/10/16 History Omeprazole Magnesium [Prilosec Otc] 1 tab PO DAILY #0 tab 06/11/16 08/22/17 History Losartan/Hydrochlorothiazide 0.5 tab PO DAILY #30 tab 06/15/16 Rx [Losartan-Hctz 100-25 mg Tab] Metoprolol Tartrate 25 mg PO BIDWM #60 tab 06/15/16 08/22/17 Rx Allergies Allergy/AdvReac Type Severity Reaction Status Date / Time morphine Allergy Severe heart stops Verified 06/08/16 07:59 aspirin AdvReac Unknown nose bleed Verified 06/08/16 07:59 Exam Vital signs: Temperature 97.7 F 08/22/17 14:35 Pulse Rate 83 08/22/17 14:35 Blood Pressure 155/90 H 08/22/17 14:35 Pulse Oximetry 95 08/22/17 14:35 - Constitutional Comments: Initially when I saw times a day he was in no acute distress. He was in distress when I saw him on the bus and we call 911. He looked elder and pale in the face. He was not immediately responding to verbal stimulus. Then later when oxygen was applied he seem to be responding well. - Routine HEENT Exam Head: Present: normocephalic, atraumatic Eye: Present: PERRL ENT: Present: mucous membranes moist - Routine Neck Exam Present: supple - Routine Respiratory Exam Present: CTA bilaterally - Routine Cardiovascular Exam Present: RRR - Routine Abdominal Exam Present: soft, normoactive bowel sounds - Routine Extremities Exam Comments: He has large thick lower extremities with eczematous rash on the anterior shins Results - Labs All other labs normal. - Diagnostic results Chest x-ray: report reviewed (His chest x-ray was done at [facility]. It read congestive heart failure. The radiologist called me and said mild to moderate congestive heart failure.) Assessment and Plan - Assessment and Plan (1) Acute on chronic congestive heart failure Current visit: Yes Status: Acute I have consult a doctor Adam and discussed with him this patient over the phone. I'm ordering serial troponin levels. Will order an EKG now and in the morning. Have given one dose of IV Lasix in the ambulance. Ordered a second dose of IV Lasix. Will monitor daily weights. Oxygen as needed. (2) CAD (coronary artery disease) Current visit: Yes Status: Acute (3) History of cardiac pacemaker Current visit: Yes Status: Acute
[2017-08-22] MEDS ORDERED: FUROSEMIDE 40 MG/4 ML INJECTION IVP SCH (17:00)
--- NOTE | 2017-08-22 17:15 | Cardiology Consult Note ---
History of Present Illness Consult reason: congestive heart failure, known to you History of present illness: 72 yo wm well known to me w daistolic CHF , mild CAD and SA node dysfx w PPM in place, taken off diuretics a month ago d/t worsening dizziness and known orthstatic hypotension. admitted w/ worsening dyspena w mild activity walking 75 feet . hypxemia present. felt tight in the chest "breathing being cut off" . no radiatoin. has cancelled a recent stress nuclear scan. chronic yellow phlegm production w cough no f/c, + LE edema increased since taken off Lasix and kcl. echocardiogram Date of Service: 05/01/2017 Conclusions: 1. Severe left atrial enlargement. 2. Normal left ventricular dimension. 3. Mildly reduced left ventricular function ,LVEF 50% 4. There is mild concentric left ventricle hypertrophy. 5. There is mild tricuspid valve regurgitation. 6. Normal estimated right ventricular systolic pressure. estimated CVP is low to normal 7. mild diastolic dysfunction 03/16 8. pacemaker leads seen in [facility] 2013 showed 30-40% LAD stenosis [facility] Medical History Updates: COPD, Coronary artery disease, history of myocardial infarction September 2004, major depression, do not resuscitate, history of epiretinal membrane on the right eye, GERD, hypercholesterolemia, hypertension, pacemaker placed for junctional bradycardia, obstructive sleep apnea, prediabetes Surgical History: Colonoscopy June 27, 2013, EGD June 27, 2013. He had random biopsies showing normal tissue - Social History Smoking status: Unknown if ever smoked (Not a current smoker) Medications Home Medications Medication Instructions Recorded Confirmed Type Omeprazole Magnesium [Prilosec Otc] 1 tab PO 4XW #0 tab 06/11/16 08/22/17 History Furosemide [Lasix] 40 mg PO BID 08/22/17 08/22/17 History Losartan/Hctz 50/12.5 [Hyzaar 1 tab PO DAILY 08/22/17 08/22/17 History 50/12.5] Lovastatin [Mevacor] 20 mg PO WS 08/22/17 08/22/17 History Magnesium Oxide 250 mg PO DAILY 08/22/17 08/22/17 History Potassium Chloride 20 meq PO BID 08/22/17 08/22/17 History Sertraline [Zoloft] 50 mg PO DAILY 08/22/17 08/22/17 History Allergies Allergy/AdvReac Type Severity Reaction Status Date / Time morphine Allergy Severe heart stops Verified 08/22/17 20:03 aspirin AdvReac Unknown nose bleed Verified 08/22/17 20:03 Exam Vital signs: Temperature 97.7 F 08/22/17 14:35 Pulse Rate 83 08/22/17 14:35 Blood Pressure 155/90 H 08/22/17 14:35 Pulse Oximetry 95 08/22/17 14:35 Results 08/22/17 16:03 08/22/17 16:03 Cardiac Enzymes 08/22/17 Range/Units 16:03 AST 27 (17-59) U/L Troponin I 0.065 (0-0.12) ng/ml CBC 08/22/17 Range/Units 16:03 WBC 10.9 (4.5-11.0) T/MM3 RBC 4.94 (4.50-5.90) M/MM3 Hgb 13.5 (13.5-17.5) GM/DL Hct 44.9 (41-53) % Plt Count 181 (130-400) T/MM3 Neut # (Auto) Not performed Lymph # (Auto) Not performed [place] # (Auto) Not performed Eos # (Auto) Not performed Baso # (Auto) Not performed Comprehensive Metabolic Panel 08/22/17 Range/Units 16:03 Sodium 147 H (136-146) MEQ/L Potassium 4.3 (3.6-5) MEQ/L Chloride 102 (98-107) MEQ/L Carbon Dioxide 32 H (22-30) MEQ/L BUN 14.0 (9-20) MG/DL Creatinine 1.0 (0.8-1.5) mg/dL Glucose 114 H (75-110) MG/DL Calcium 9.6 (8.4-10.2) MG/DL AST 27 (17-59) U/L ALT 13 (1-50) U/L Alkaline Phosphatase 104 (38-126) U/L Total Protein 7.4 (6.3-8.2) g/dL Albumin 4.2 (3.5-5.0) g/dL Intake and Output 08/22/17 08/22/17 08/22/17 06:59 14:59 22:59 Output Total 225 / 225 Balance -225 / -225 Output: Urine 225 / 225 Other: Urine Appearance Clear Urine Color Yellow Weight 126.5 kg Patient Weight 08/23/17 06:59 Weight 126.5 kg - Imaging and Cardiology Echo: report reviewed, other EKG results: other (outside EKG demand EMERGENCY MANAGEMENT COORDINATOR) EKG interpretations - EKG EKG results cardiology: no acute changes - Dysrhythmias Sinus rhythms and dysrhythmias: sinus rhythm - Blocks, axis, hypertrophy, ST abn AV and intraventricular conduction: right bundle branch block (fixed/ intermittent, complete/incomplete) Assessment and Plan - Assessment and Plan CHF diastolic A/C pacemaker in place CAD mild 2014 COPD sleep apnea agree w IV Lasix and monitor standing BP/orthostats (,if siginficant may add Moidodrine) r/o MO will follow w you thanks Hospital Course Summary Disclaimer: The visit summary below is not to be considered part of the above Progress Note.
[2017-08-22] MEDS: MAGNESIUM OXIDE 400 MG TABLET PO SCH (20:43)
[2017-08-22] MEDS: SERTRALINE 50 MG TABLET PO SCH (20:43)
[2017-08-22] MEDS ORDERED: SERTRALINE 25 MG TABLET PO SCH (21:00)
[2017-08-23] MEDS: FUROSEMIDE 20 MG/2 ML INJECTION IVP SCH ×3 (00:55→17:23)
[2017-08-23] MEDS: SALINE FLUSH 10ml SYRINGE IV PRN (00:55)
[2017-08-23] MEDS: OMEPRAZOLE 20 MG CAPSULE PO SCH (06:15)
--- NOTE | 2017-08-23 07:36 | Family Practice Progress Note ---
Progress Note-A&P - Time Spent With Patient Total time spent is greater than 50% in coordination of care (as documented) at patient's floor/unit and/or counseling patient: (1) Diastolic CHF, acute on chronic Status: Acute Assessment and plan: He had 40 mg of IV Lasix twice yesterday. I am going to give a dosis morning. He has a Hammer catheter in. He is wearing oxygen and 3 L. He appears much more stable today. May consider discharged this afternoon. I reviewed Dr. Medina's consultation and appreciate that very much. Current Visit: Yes (2) Acute on chronic congestive heart failure Status: Acute Current Visit: Yes (3) CAD (coronary artery disease) Status: Acute Current Visit: Yes (4) History of cardiac pacemaker Status: Acute Current Visit: Yes (5) COPD (chronic obstructive pulmonary disease) Status: Acute Current Visit: Yes Subjective - Subjective Interval history: He reports his shortness of breath is normal now. He's wearing oxygen. He denies any chest pain. He denies feeling confused. Exam Vital signs: Temperature 96.4 F L 08/23/17 03:14 Pulse Rate 61 08/23/17 03:14 Respiratory Rate 20 08/23/17 03:14 Blood Pressure 125/83 08/23/17 03:14 Pulse Oximetry 100 08/23/17 03:14 Narrative: Laboratory Tests 08/22/17 08/22/17 08/22/17 16:03 16:03 22:08 WBC 10.9 RBC 4.94 Hgb 13.5 Hct 44.9 MCV 90.9 MCH 27.3 MCHC 30.1 L RDW Std Deviation 52.4 H Plt Count 181 MPV 11.0 Immature Gran % (Auto) Not performed Neut % (Auto) Not performed Lymph % (Auto) Not performed [place] % (Auto) Not performed Eos % (Auto) Not performed Baso % (Auto) Not performed Neut # (Auto) Not performed Lymph # (Auto) Not performed [place] # (Auto) Not performed Eos # (Auto) Not performed Baso # (Auto) Not performed Abs Immat Gran (auto) Not performed Neutrophils % (Manual) 87.0 H Lymphocytes % (Manual) 13.0 L Neutrophils # (Manual) 9.5 H Lymphocytes # (Manual) 1.4 Hypochromasia 1+ Anisocytosis 1+ Microcytosis 1+ Ovalocytes 1+ RBC Morph Comment Abnormal Turbidity < 20 Sodium 147 H Potassium 4.3 Chloride 102 Carbon Dioxide 32 H Anion Gap 13 BUN 14.0 Creatinine 1.0 GFR Calculation 74 BUN/Creatinine Ratio 14 Glucose 114 H Calculated Osmolality 284 H Calcium 9.6 Total Bilirubin 1.10 Icterus Index < 2 AST 27 ALT 13 Alkaline Phosphatase 104 Troponin I 0.065 0.087 NT-Pro-B Natriuret Pep 23337 H Total Protein 7.4 Albumin 4.2 Globulin 3.2 Albumin/Globulin Ratio 1.3 Specimen Hemolysis < 15 97 H 08/23/17 08/23/17 04:21 04:21 WBC RBC Hgb Hct MCV MCH MCHC RDW Std Deviation Plt Count MPV Immature Gran % (Auto) Neut % (Auto) Lymph % (Auto) [place] % (Auto) Eos % (Auto) Baso % (Auto) Neut # (Auto) Lymph # (Auto) [place] # (Auto) Eos # (Auto) Baso # (Auto) Abs Immat Gran (auto) Neutrophils % (Manual) Lymphocytes % (Manual) Neutrophils # (Manual) Lymphocytes # (Manual) Hypochromasia Anisocytosis Microcytosis Ovalocytes RBC Morph Comment Turbidity < 20 Sodium 145 Potassium 3.9 Chloride 97 L Carbon Dioxide 37 H Anion Gap 11 BUN 13.0 Creatinine 1.0 GFR Calculation 74 BUN/Creatinine Ratio 13 Glucose 99 Calculated Osmolality 279 Calcium 9.2 Total Bilirubin Icterus Index < 2 AST ALT Alkaline Phosphatase Troponin I 0.081 NT-Pro-B Natriuret Pep Total Protein Albumin Globulin Albumin/Globulin Ratio Specimen Hemolysis < 15 < 15 Inpatient Medications: Generic Name Dose Route Start Last Admin Trade Name Lasha PRN Reason Stop Dose Admin Furosemide 20 mg 08/23/17 01:00 08/23/17 00:55 Lasix 20 Mg/2 Ml IVP 20 mg Q8HR ANDREA Administration HCTZ/Losartan Potassium 0.5 tab 08/23/17 09:00 Hyzaar 100/25 PO DAILY ANDREA Lovastatin 20 mg 08/23/17 21:00 Mevacor PO HS ANDREA Magnesium Oxide 400 mg 08/22/17 21:00 08/22/17 20:43 Magox PO 400 mg BID ANDREA Administration Metoprolol Tartrate 25 mg 08/22/17 17:30 08/22/17 19:26 Lopressor PO 25 mg BIDWM ANDREA Administration Nitroglycerin 0.4 mg 08/22/17 15:15 Nitrostat SL Q5M PRN CP Omeprazole 20 mg 08/23/17 06:30 08/23/17 06:15 Prilosec PO 20 mg ACB ANDREA Administration Potassium Chloride 20 meq 08/22/17 17:30 08/22/17 19:26 K-Dur 20 Meq Tablet PO 20 meq WM ANDREA Administration Sertraline HCl 50 mg 08/22/17 21:00 08/22/17 20:43 Zoloft PO 50 mg HS ANDREA Administration Sodium Chloride 10 - 80 ml 08/22/17 19:36 08/23/17 00:55 Iv Flush IV 10 ml PRN PRN Administration Flushing Discontinued Medications Generic Name Dose Route Start Last Admin Trade Name Freq PRN Reason Stop Dose Admin Furosemide 40 mg 08/22/17 17:00 08/22/17 19:37 Lasix 40 Mg/4 Ml IVP 08/22/17 17:01 40 mg ONE TIME ANDREA Administration Sertraline HCl 25 mg 08/22/17 21:00 Zoloft PO HS ANDREA - Constitutional no acute distress, well developed - Routine HEENT Exam Head: Present: normocephalic, atraumatic - Routine Neck Exam Present: supple - Routine Respiratory Exam Present: CTA bilaterally - Routine Cardiovascular Exam Present: RRR - Routine Abdominal Exam Present: soft, non distended, non tender - Routine Extremities Exam Present: no edema - Urinary Catheter Management Urethral Cath placed during this visit: yes Insertion date: 08/22/17 Insertion time: 20:10
--- NOTE | 2017-08-23 08:32 | XRay Report ---
INDICATION: CHF PROCEDURE: CHEST 2-VIEWS UPRIGHT (PA & LAT) Encounter: Initial COMPARISON: June 14, 2016 FINDINGS: Increased interstitial markings in both lungs with small pleural effusions. No pneumothorax. Cardiac silhouette remains enlarged. Left pacemaker. Mediastinal contours are grossly stable. Impression: Moderate CHF. There is a preliminary report by virtual radiologic. .
--- NOTE | 2017-08-23 08:38 | XRay Report ---
INDICATION: CHF PROCEDURE: CHEST 2-VIEWS UPRIGHT (PA & LAT) Encounter: Initial COMPARISON: August 22, 2017 FINDINGS: Findings of CHF are again noted with small pleural effusions and interstitial edema. The overall appearance is unchanged. No pneumothorax. Cardiomediastinal contours are stable. Left pacemaker. Impression: No significant change in the CHF pattern. .
[2017-08-23] MEDS: MAGNESIUM OXIDE 400 MG TABLET PO SCH ×2 (09:11→21:06)
[2017-08-23] MEDS ORDERED: LOVASTATIN 20 MG TABLET PO SCH (21:00)
[2017-08-23] MEDS: SERTRALINE 50 MG TABLET PO SCH (21:06)
[2017-08-24] MEDS: FUROSEMIDE 20 MG/2 ML INJECTION IVP SCH ×2 (00:32→09:06)
[2017-08-24] MEDS: SALINE FLUSH 10ml SYRINGE IV PRN ×2 (00:32→09:07)
[2017-08-24] MEDS: OMEPRAZOLE 20 MG CAPSULE PO SCH (06:25)
--- NOTE | 2017-08-24 06:28 | Discharge Summary ---
Providers Date of admission: 08/23/17 14:03 Primary care physician: Tawanda Cornell MD Admitting clinician: Tawanda Cornell Attending Physician: Tawanda Cornell Consults: 08/22/17 15:03 Physician Consult [CONS] Routine Consulting Provider: Yudy Medina Reason For Exam: CHF Ordering Provider has Notified Air Pollution Auditor: No Comment: revolving inventory clerk has notified Adam. Attending physician on discharge: Tawanda Cornell Discharging clinician: Tawanda Cornell Anticipated date of discharge: 08/24/17 Diagnosis - Discharge Diagnosis (1) Diastolic CHF, acute on chronic Status: Acute (2) Acute on chronic congestive heart failure Status: Acute (3) CAD (coronary artery disease) Status: Acute (4) History of cardiac pacemaker Status: Acute (5) COPD (chronic obstructive pulmonary disease) Status: Acute Summary Hospital course: He was admitted as an outpatient. Started IV Lasix and oxygen. He is placed on the quality assurance monitor body. In the 1st 24 hours he diaries to [address] Medina was consult it. He recommended IV Lasix 20 mg Q8 hours. In echocardiogram was done. It revealed acute on chronic diastolic heart failure. At 24 hours he was updated to inpatient. Labs remain stable. Patient was stable for discharge on the morning of the . Discharged to home. - Time Spent with Patient Total time spent providing and/or coordinating discharge services: Less than 30 minutes Exam Vital signs: Temperature 98.5 F 08/23/17 22:02 Pulse Rate 61 08/24/17 04:40 Respiratory Rate 20 08/24/17 04:40 Blood Pressure 133/66 08/24/17 04:40 Pulse Oximetry 98 08/24/17 04:40 - Constitutional no acute distress, well developed - Routine HEENT Exam Head: Present: normocephalic - Routine Neck Exam Present: supple - Routine Respiratory Exam Present: CTA bilaterally - Routine Cardiovascular Exam Present: RRR - Routine Abdominal Exam Present: soft - Routine Extremities Exam Present: no edema DS: Data Labs on day of discharge: Labs from last 24 hours 08/24/17 04:45 Turbidity < 20 Sodium 145 Potassium 4.1 Chloride 95 L Carbon Dioxide 40 H Anion Gap 10 BUN 14.0 Creatinine 1.0 GFR Calculation 74 BUN/Creatinine Ratio 14 Glucose 108 Calculated Osmolality 281 H Calcium 9.0 Icterus Index < 2 Specimen Hemolysis < 15 - Additional Comments Laboratory Tests 08/22/17 08/22/17 08/22/17 16:03 16:03 22:08 WBC 10.9 RBC 4.94 Hgb 13.5 Hct 44.9 MCV 90.9 MCH 27.3 MCHC 30.1 L RDW Std Deviation 52.4 H Plt Count 181 MPV 11.0 Immature Gran % (Auto) Not performed Neut % (Auto) Not performed Lymph % (Auto) Not performed [place] % (Auto) Not performed Eos % (Auto) Not performed Baso % (Auto) Not performed Neut # (Auto) Not performed Lymph # (Auto) Not performed [place] # (Auto) Not performed Eos # (Auto) Not performed Baso # (Auto) Not performed Abs Immat Gran (auto) Not performed Neutrophils % (Manual) 87.0 H Lymphocytes % (Manual) 13.0 L Neutrophils # (Manual) 9.5 H Lymphocytes # (Manual) 1.4 Hypochromasia 1+ Anisocytosis 1+ Microcytosis 1+ Ovalocytes 1+ RBC Morph Comment Abnormal Turbidity < 20 Sodium 147 H Potassium 4.3 Chloride 102 Carbon Dioxide 32 H Anion Gap 13 BUN 14.0 Creatinine 1.0 GFR Calculation 74 BUN/Creatinine Ratio 14 Glucose 114 H Calculated Osmolality 284 H Calcium 9.6 Total Bilirubin 1.10 Icterus Index < 2 AST 27 ALT 13 Alkaline Phosphatase 104 Troponin I 0.065 0.087 NT-Pro-B Natriuret Pep 56695 H Total Protein 7.4 Albumin 4.2 Globulin 3.2 Albumin/Globulin Ratio 1.3 Specimen Hemolysis < 15 97 H 08/23/17 08/23/17 08/24/17 04:21 04:21 04:45 WBC RBC Hgb Hct MCV MCH MCHC RDW Std Deviation Plt Count MPV Immature Gran % (Auto) Neut % (Auto) Lymph % (Auto) [place] % (Auto) Eos % (Auto) Baso % (Auto) Neut # (Auto) Lymph # (Auto) [place] # (Auto) Eos # (Auto) Baso # (Auto) Abs Immat Gran (auto) Neutrophils % (Manual) Lymphocytes % (Manual) Neutrophils # (Manual) Lymphocytes # (Manual) Hypochromasia Anisocytosis Microcytosis Ovalocytes RBC Morph Comment Turbidity < 20 < 20 Sodium 145 145 Potassium 3.9 4.1 Chloride 97 L 95 L Carbon Dioxide 37 H 40 H Anion Gap 11 10 BUN 13.0 14.0 Creatinine 1.0 1.0 GFR Calculation 74 74 BUN/Creatinine Ratio 13 14 Glucose 99 108 Calculated Osmolality 279 281 H Calcium 9.2 9.0 Total Bilirubin Icterus Index < 2 < 2 AST ALT Alkaline Phosphatase Troponin I 0.081 NT-Pro-B Natriuret Pep Total Protein Albumin Globulin Albumin/Globulin Ratio Specimen Hemolysis < 15 < 15 < 15 DS: Plan - Discharge Medications/Orders Prescriptions: Continue RX: Magnesium Oxide 250 mg PO DAILY RX: Lovastatin [Mevacor] 20 mg PO WS RX: Losartan/Hctz 50/12.5 [Hyzaar 50/12.5] 1 tab PO DAILY RX: Furosemide [Lasix] 40 mg PO BID RX: Sertraline [Zoloft] 50 mg PO DAILY RX: Potassium Chloride 20 meq PO BID Discontinued RX: Omeprazole Magnesium [Prilosec Otc] 1 tab PO 4XW #0 tab - Patient/Caregiver Discharge Instructions - Follow up Plan Follow up with: Tawanda Cornell MD [Primary Care Provider] - Disposition: Discharged Home, Self-Care
[2017-08-24] MEDS: MAGNESIUM OXIDE 400 MG TABLET PO SCH (09:06)
[2017-08-24 09:16] VITALS: TEMP 98; O2SAT 95
[2017-08-24 09:35] VITALS: PULSE 81
[2017-08-24 11:20] VITALS: BP 125/79; RESP 80
--- NOTE | 2017-08-24 19:35 | Cardiology Progress Note ---
Subjective Principal diagnosis: CHF Interval history: Late entry patient seen 08/23/2017 around 12:30 PM Renny is feeling a lot better already breathing easier and not experiencing chest tightness. His oxygen turned down to 2 L which is baseline legs are less swollen. Denies chest pain or pressure. Has had atypical chest tightness for few months and called and canceled his outpatient stress nuclear scan and sealed doesn't want to have it done or re-scheduled Telemetry I&O's weight serial vital signs and labs reviewed in detail Outpatient pacemaker interrogation last month reviewed and showed only small percentage of RV pacing Exam Vital signs: Temperature 98.0 F 08/24/17 08:00 Pulse Rate 81 08/24/17 08:00 Respiratory Rate 80 H 08/24/17 11:20 Blood Pressure 125/79 08/24/17 11:20 Pulse Oximetry 95 08/24/17 11:20 Inpatient Medications: Discontinued Medications Generic Name Dose Route Start Last Admin Trade Name Freq PRN Reason Stop Dose Admin Furosemide 40 mg 08/22/17 17:00 08/22/17 19:37 Lasix 40 Mg/4 Ml IVP 08/22/17 17:01 40 mg ONE TIME ANDREA Administration Furosemide 20 mg 08/23/17 01:00 08/24/17 09:06 Lasix 20 Mg/2 Ml IVP 20 mg Q8HR ANDREA Administration HCTZ/Losartan Potassium 0.5 tab 08/23/17 09:00 08/24/17 09:06 Hyzaar 100/25 PO 0.5 tab DAILY ANDREA Administration Lovastatin 20 mg 08/23/17 21:00 08/23/17 21:06 Mevacor PO 20 mg HS ANDREA Administration Magnesium Oxide 400 mg 08/22/17 21:00 08/24/17 09:06 Magox PO 400 mg BID ANDREA Administration Metoprolol Tartrate 25 mg 08/22/17 17:30 08/24/17 09:06 Lopressor PO 25 mg BIDWM ANDREA Administration Nitroglycerin 0.4 mg 08/22/17 15:15 Nitrostat SL Q5M PRN CP Omeprazole 20 mg 08/23/17 06:30 08/24/17 06:25 Prilosec PO 20 mg ACB ANDREA Administration Potassium Chloride 20 meq 08/22/17 17:30 08/24/17 09:06 K-Dur 20 Meq Tablet PO 20 meq WM ANDREA Administration Sertraline HCl 25 mg 08/22/17 21:00 Zoloft PO HS ANDREA Sertraline HCl 50 mg 08/22/17 21:00 08/23/17 21:06 Zoloft PO 50 mg HS ANDREA Administration Sodium Chloride 10 - 80 ml 08/22/17 19:36 08/24/17 09:07 Iv Flush IV 10 ml PRN PRN Administration Flushing - Constitutional no acute distress, obese - Routine HEENT Exam Head: Present: normocephalic, atraumatic Eye: Present: EOMI, PERRL ENT: Present: mucous membranes moist - Routine Neck Exam Present: supple, normal carotid upstroke. Absent: JVD, carotid bruit, lymphadenopathy, thyromegaly - Routine Chest/Breast/Axilla Exam Chest wall: Present: pacemaker (normal, well healed scar) - Routine Respiratory Exam Present: decreased breath sounds (in bases without crackles), CTA bilaterally - Routine Cardiovascular Exam Present: RRR, murmur (systolic). Absent: S3, bradycardia, tachycardia - Routine Abdominal Exam Present: soft, normoactive bowel sounds, non tender. Absent: organomegaly, mass - Routine Extremities Exam Present: edema (1+ bilateral lower extremity one third the way up, with skin hyperpigmentation indicative of stasis), pulses intact, normal capillary refill. Absent: cyanosis, clubbing - Routine Skin Exam Present: intact, dry, warm. Absent: cyanosis, erythema - Routine Neurological Exam Present: alert, oriented X3, CN II-XII intact, moving all extremities, vision grossly intact, hearing grossly intact, normal speech. Absent: motor deficit, altered mental status, hemineglect, facial asymmetry - Routine Psychiatric Exam Present: normal affect, cooperative, good judgment - Urinary Catheter Management Urethral Cath placed during this visit: yes Insertion date: 08/22/17 Insertion time: 20:10 Results 08/22/17 16:03 08/24/17 04:45 Comprehensive Metabolic Panel 08/24/17 Range/Units 04:45 Sodium 145 (136-146) MEQ/L Potassium 4.1 (3.6-5) MEQ/L Chloride 95 L (98-107) MEQ/L Carbon Dioxide 40 H (22-30) MEQ/L BUN 14.0 (9-20) MG/DL Creatinine 1.0 (0.8-1.5) mg/dL Glucose 108 (75-110) MG/DL Calcium 9.0 (8.4-10.2) MG/DL Intake and Output 08/24/17 08/24/17 08/24/17 06:59 14:59 22:59 Intake Total 100 / 100 Output Total 660 / 660 350 / 350 Balance -560 / -560 -350 / -350 Intake: Oral 100 / 100 Output: Urine 660 / 660 350 / 350 Other: Urine Appearance Clear Clear Urine Color Yellow Yellow Urine Odor Normal Stool Color Brown Stool Consistency Soft Size of Bowel Movement Moderate # Bowel Movements 1 Weight 120 kg Patient Weight 08/25/17 06:59 Weight 120 kg I&O's weight and labs from 08/23/2017 reviewed in detail all indicate good effective diuresis - Imaging and Cardiology Holter: other (telemetry sinus rhythm and intermittent ventricular paced rhythm) - EKG Interpretation EKG: sinus rhythm, no acute changes Assessment and Plan - Assessment and Plan Diastolic heart failure acute on chronic Permanent pacemaker in place with low percentage RV pacing Mild coronary artery disease angiogram in 2013 Mild chest tightness appears to correlate with a congestion, patient has declined a pharmacological stress nuclear scan to rule out progression of CAD Multiple comorbidities and obesity as in H&P and consultation History of orthostatic hypotension Occurred with current management patient is making good progress and diuresing well Recommend Monitoring of serum CO2 with diuresis Plans low sodium diet and increasing his activity Hospital Course Summary Disclaimer: The visit summary below is not to be considered part of the above Progress Note. Hospital Course: He was admitted as an outpatient. Started IV Lasix and oxygen. He is placed on the potline monitor. In the 1st 24 hours he diaries to [address] Medina was consult it. He recommended IV Lasix 20 mg Q8 hours. In echocardiogram was done. It revealed acute on chronic diastolic heart failure. At 24 hours he was updated to inpatient. Labs remain stable. Patient was stable for discharge on the morning of the . Discharged to home.
== END 2017-08-24 12:03 | disposition home or self-care (01) | DRG 293 ==
LOC: MED
PROVIDERS: ADMIT Family Medicine; ATTEND Family Medicine